=== PATIENT | female | born 1930 | race Caucasian/White ===

== ENCOUNTER → 2017-04-30 18:22 | Outpatient (CLI) | payer MEDICARE ==
[2016-04-08 10:51] VITALS: BMI 32.7
[~2017-04-30 18:22] MED LIST: ASPIRIN81 MG PO; BENTYL10 MG PO; CARAFATE1 G/10 ML PO; CIPRO500 MG PO; FUROSEMIDE20 MG PO; LASIX40 MG PO; ONDANSETRON4 MG/2 M3 IV; PROTONIX40 MG PO; TENORMIN25 MG PO
[2017-04-30 20:06] LABS: APPEARANCE CLEAR (CLEAR); COLOR YELLOW (YELLOW)
[2017-04-30 20:07] LABS: BILIRUBIN NEGATIVE (NEGATIVE); GLUCOSE NEGATIVE (NEGATIVE); KETONE NEGATIVE (NEGATIVE); LEUKOCYTE ESTERASE NEGATIVE (NEGATIVE); NITRITE NEGATIVE (NEGATIVE); PROTEIN NEGATIVE (NEGATIVE); UROBILINOGEN NORMAL (NORMAL)
== END | disposition home or self-care (01) ==
LOC: D.LABREF 18:22
PROVIDERS: Family Medicine
DX: R30.9 Painful micturition, unspecified (principal)

== ENCOUNTER 2017-07-03 21:05 | Inpatient (IN) | payer MEDICARE, OTHER ==
[~2017-07-03] VITALS: Ht 157.5 cm; Wt 80.3 kg
[2017-07-03 21:59] LABS: BASOPHILS 0.1 % (0-2); EOSINOPHILS 1.7 % (0-7); HEMATOCRIT 34.4 % (36.0-48.0); HEMOGLOBIN 11.2 g/dL (12-16); IMMATURE GRANULOCYTES 0.3 % (0-5); LYMPHOCYTES 26.7 % (15-50); MCH 30.1 pg (26.0-34.0); MCHC 32.6 g/dL (31.0-37.0); MCV 92.5 fL (80.0-100.0); MEAN PLATELET VOLUME 10.9 fL (7.4-10.4); MONOCYTES 8.8 % (2-11); NEUTROPHILS 62.4 % (40-80); RBC 3.72 10x6/uL (4.00-5.40); RDW 13.8 % (11.5-14.5); WBC 7.7 10x3/uL (4.8-10.8)
[2017-07-03 22:06] LABS: PLATELET COUNT 185 10x3/uL (130-400)
[2017-07-03 22:17] LABS: ALBUMIN 3.3 g/dL (3.4-5.0); BILIRUBIN - TOTAL 0.3 mg/dL (0.2-1.3); CALCIUM 9.6 mg/dL (8.5-10.1); CARBON DIOXIDE 30.9 mmol/L (21.0-32.0); CREATININE - SERUM 1.5 mg/dL (0.6-1.3); POTASSIUM - SERUM 4.9 mmol/L (3.5-5.1); PROTEIN - SERUM 6.7 g/dL (6.4-8.2)
[2017-07-03 22:41] LABS: INR 1.48 (0.85-1.17); PROTIME 17.8 SECONDS (11.6-15.0)
[2017-07-04 03:19] VITALS: BP 127/69; BMI 32.4
[2017-07-04 04:00] VITALS: BP 122/66
[2017-07-04 05:48] LABS: BASOPHILS 0 % (0-2); EOSINOPHILS 1.9 % (0-7); HEMOGLOBIN 10.2 g/dL (12-16); IMMATURE GRANULOCYTES 0.3 % (0-5); MCH 30.3 pg (26.0-34.0); MCHC 32.9 g/dL (31.0-37.0); MEAN PLATELET VOLUME 9.9 fL (7.4-10.4); MONOCYTES 7.3 % (2-11); NEUTROPHILS 61.5 % (40-80); RBC 3.37 10x6/uL (4.00-5.40); RDW 13.7 % (11.5-14.5); WBC 6.7 10x3/uL (4.8-10.8)
[2017-07-04 05:53] LABS: PLATELET COUNT 253 10x3/uL (130-400)
--- NOTE | 2017-07-04 07:00 | NUR ---
PT REC'D FROM [facility]. RESTING IN BED WATCHING TV. AAOX4. NO COMPLAINTS OF PAIN. PIV TO R FOREARM FREE OF REDNESS AND SWELLING. LUNG SOUNDS CLEAR AND EQUAL BILAT. REGULAR HEART RATE AND RHYTHM. BOWEL SOUNDS ACTIVE X4 QUADS. STATES SHE HAD A BM AROUND 0500 THAT WAS STREAKED WITH BRIGHT RED BLOOD. HAS NOT HAD A BM SINCE THEN. +2 EDEMA NOTED TO RLE. BED LOW, CALL LIGHT IN REACH, DENIES NEEDS. CPOC.
[2017-07-04 08:19] VITALS: BP 99/55
--- NOTE | 2017-07-04 09:24 | NUR ---
Patient Name: NYASIA HENRY Admission Status: ER Accout number: [id number] Admission Date: 07-03-2017 : 1930 Admission Diagnosis: Attending: OMAR SCHMITT Current LOS: 1 Anticipated DC Date: 07-07-2017 Planned Disposition: Home with Home Health Primary Insurance: MEDICARE A & B Discharge Planning Comments: CM MET WITH PATIENT REGARDING D/C NEEDS AND PLANS. PATIENT STATED SHE HAS A ROOMMATE SUARAVDILIA BRADFORD. PATIENT STATED SHE WILL TAKE A TAXI HOME AT DISCHARGE. PATIENT HAS 2 STEPS TO ENTER HOME AND NO STAIRS INSIDE. PATIENTS PCP IS DR. SOLOMON AND PHARMACY IS [facility]. PATIENT IS INDEPENDENT WITH HER CARE AND HAS A WALKER, CANE, AND WHEELCHAIR AT HOME. PATIENT IS CURRENT WITH [facility]. CM WILL CONTINUE TO FOLLOW PATIENT WITH D/C NEEDS AND PLANS. PCP DR. [facility]- [phone] SAURAVDILIA GUALLPANER (FRIEND) [phone] Weather Clerk: Elizabeth Delgado Is the patient Alert and Oriented? Yes 0 * How many steps to enter\exit or inside your home? 2 W/O RAIL 0 * PCP DR. SOLOMON 0 * Pharmacy [facility] 0 * Preadmission Environment Home with Family 0 * ADLs Independent 0 * Equipment Cane Walker Wheelchair 0 * List name and contact numbers for known caregivers / representatives who currently or will assist patient after discharge: SAURAV BRADFORD (FRIEND) [phone] * Community resources currently utilized None 0 * Additional services required to return to the preadmission environment? Yes 0 * Can the patient safely return to the preadmission environment? Yes 0 * Has this patient been hospitalized within the prior 30 days at any hospital? No 0 Grand Total: 0
[2017-07-04 11:01] LABS: ALBUMIN 2.8 g/dL (3.4-5.0); ANION GAP 10.6 mmol/L (8-16); BILIRUBIN - TOTAL 0.43 mg/dL (0.2-1.3); CALCIUM 8.7 mg/dL (8.5-10.1); CARBON DIOXIDE 28.8 mmol/L (21.0-32.0); CREATININE - SERUM 1.3 mg/dL (0.6-1.3); POTASSIUM - SERUM 4.4 mmol/L (3.5-5.1); PROTEIN - SERUM 6.1 g/dL (6.4-8.2)
--- NOTE | 2017-07-04 11:11 | NUR ---
NEW MEDS ADMINISTERED AT THIS TIME. PT RESTING IN BED WATCHING TV. ASSISTED TO THE BATHROOM AT THIS TIME. VOIDED SMALL AMOUNT OF CLEAR YELLOW URINE. SCD'S APPLIED AT THIS TIME. SHAHRIAR NAILS, AT BEDSIDE DISCUSSING POC. BED LOW, CALL LIGHT IN REACH, DENIES NEEDS. CPOC.
[2017-07-04 12:00] VITALS: BP 140/89
--- NOTE | 2017-07-04 15:12 | NUR ---
AWAKE AND ALERT. ORIENTED X3. NO C/O VOICED. UP TO BR VOIDED CLEAR YELLOW URINE. DENIES NEEDS. SL TO RIGHT FOREARM PATENT WITHOUT REDNESS.
[2017-07-04 16:17] VITALS: BP 90/47
--- NOTE | 2017-07-04 18:55 | NUR ---
REPORT RECIEVED, ASSUMED CARE OF PT. PT ASSISTED TO BATHROOM AND REPOSITIONED IN BED. NO OTHER COMPLAINTS AT THIS TIME, RESTING. IV FLUIDS RUNNING ORDERED, SCD'S IN PLACE. BED IN LOWEST POSITION, SIDE RAILS UP X 2, CALL LIGHT WITHIN REACH.
[2017-07-04 20:00] VITALS: BP 109/68
--- NOTE | 2017-07-04 23:50 | NUR ---
PT COMPLAINS OF SWELLING, BURNING AND PAIN AT IV SITE. D/C'D, CATHETER INTACT, BLEED CONTROL AND BANDAGE APPLIED. RE-SITED TO R FOREARM, PT TOLERATED WITH MINIMAL DISCOMFORT, FLUIDS RUNNING ORDERED.
--- NOTE | 2017-07-05 00:44 | NUR ---
PT SLEEPING, EYES SHUT, NO SIGNS OF ACUTE DISTRESS. IV FLUIDS RUNNING ORDERED. BED IN LOWEST POSITION, SIDE RAILS UP X 2, CALL LIGHT WITHIN REACH.
[2017-07-05 05:40] LABS: BASOPHILS 0.2 % (0-2); HEMATOCRIT 28.7 % (36.0-48.0); HEMOGLOBIN 9.5 g/dL (12-16); IMMATURE GRANULOCYTES 0.2 % (0-5); LYMPHOCYTES 28.3 % (15-50); MCH 30.5 pg (26.0-34.0); MCHC 33.1 g/dL (31.0-37.0); MCV 92.3 fL (80.0-100.0); MEAN PLATELET VOLUME 9.9 fL (7.4-10.4); MONOCYTES 7.8 % (2-11); NEUTROPHILS 61.5 % (40-80); PLATELET COUNT 238 10x3/uL (130-400); RBC 3.11 10x6/uL (4.00-5.40); RDW 13.8 % (11.5-14.5); WBC 6.5 10x3/uL (4.8-10.8)
[2017-07-05 05:57] LABS: INR 1.21 (0.85-1.17); PROTIME 15.1 SECONDS (11.6-15.0)
[2017-07-05 06:01] LABS: ALBUMIN 2.5 g/dL (3.4-5.0); ANION GAP 10.6 mmol/L (8-16); BILIRUBIN - TOTAL 0.44 mg/dL (0.2-1.3); CALCIUM 8.3 mg/dL (8.5-10.1); CARBON DIOXIDE 27.5 mmol/L (21.0-32.0); CREATININE - SERUM 1.4 mg/dL (0.6-1.3); POTASSIUM - SERUM 4.1 mmol/L (3.5-5.1); PROTEIN - SERUM 5.5 g/dL (6.4-8.2)
--- NOTE | 2017-07-05 06:48 | NUR ---
PT RESTING, EYES SHUT, EASILY AROUSED. NO CHANGE FROM SHIFT ASSESSMENT, EXCEPT IV RE-SITED. NO COMPLAINTS AT THIS TIME. BED IN LOWEST POSITION, SIDE RAILS UP X 2, CALL LIGHT WITHIN REACH.
--- NOTE | 2017-07-05 07:00 | NUR ---
AWAKE AND ALERT. CONSENT FOR EGD SIGNED. BED ALARM AND SCD'S ON. IV TO RIGHT AC, CALL LIGHT IN REACH. WILL CONTINUE WITH PLAN OF CARE.
--- NOTE | 2017-07-05 09:30 | NUR ---
TAKEN FOR EGD. WILL MONITOR PT WHEN SHE RETURNS TO ROOM 2236.
[2017-07-05 09:39] VITALS: BP 113/53
[2017-07-05 10:47] VITALS: BP 112/63
--- NOTE | 2017-07-05 10:50 | NUR ---
BACK FROM GI LAB AT THIS TIME. ASSISTED TO BATHROOM AND PROVIDED WITH FRESH ICE WATER. PT ALERT AND ORIENTED AND VITAL SIGNS STABLE. WILL CONTINUE WITH PLAN OF CARE.
[2017-07-05 12:57] VITALS: BP 110/59
--- NOTE | 2017-07-05 15:46 | NUR ---
ASSISTED PT TO BEDSIDE COMMODE AT THIS TIME. ENCOURAGED PT TO INCREASE INTAKE OF GOLYTELY.
[2017-07-05 16:30] VITALS: BP 128/67
[2017-07-05 17:57] LABS: APPEARANCE HAZY (CLEAR); BACTERIA MANY /hpf (NONE SEEN); BILIRUBIN NEGATIVE (NEGATIVE); COLOR STRAW (YELLOW); EPITHELIAL CELLS 0-5 /hpf (0-5); GLUCOSE NEGATIVE (NEGATIVE); KETONE NEGATIVE (NEGATIVE); LEUKOCYTE ESTERASE 1+ (NEGATIVE); NITRITE POSITIVE (NEGATIVE); PROTEIN NEGATIVE (NEGATIVE); RED CELLS - URINE RARE /hpf (0-5); UROBILINOGEN NORMAL (NORMAL)
[2017-07-05 20:00] VITALS: BP 141/60
--- NOTE | 2017-07-05 21:00 | NUR ---
ANSWERED PATIENT'S CALL LIGHT, SHE IS SITTING ON THE BEDSIDE COMMODE. SHE STATED SHE IS FINISHED ON THE BEDSIDE COMMODE. ASSISTED HER BACK TO BED. HOB 40 DEGREES. CALL LIGHT, AND PHONE IN REACH. PATIENT DENIES FURTHER NEEDS AT THIS TIME. BED IN LOWEST POSITION. BED RAILS UP X'S 3. PATIENT IS ON ROOM AIR. NO SIGNS OF DISTRESS.
[2017-07-06] VITALS (16 sets, daily range): BP systolic 97–196; BP diastolic 49–93
[2017-07-06 05:41] LABS: BASOPHILS 0.1 % (0-2); EOSINOPHILS 2.2 % (0-7); HEMATOCRIT 26.6 % (36.0-48.0); HEMOGLOBIN 8.7 g/dL (12-16); IMMATURE GRANULOCYTES 0.3 % (0-5); LYMPHOCYTES 19.6 % (15-50); MCH 30.2 pg (26.0-34.0); MCHC 32.7 g/dL (31.0-37.0); MCV 92.4 fL (80.0-100.0); MEAN PLATELET VOLUME 9.9 fL (7.4-10.4); MONOCYTES 8.3 % (2-11); NEUTROPHILS 69.5 % (40-80); PLATELET COUNT 222 10x3/uL (130-400); RBC 2.88 10x6/uL (4.00-5.40); RDW 13.6 % (11.5-14.5); WBC 6.9 10x3/uL (4.8-10.8)
[2017-07-06 06:05] LABS: INR 1.17 (0.85-1.17); PROTIME 14.8 SECONDS (11.6-15.0)
[2017-07-06 06:10] LABS: ALBUMIN 2.3 g/dL (3.4-5.0); ANION GAP 10.7 mmol/L (8-16); BILIRUBIN - TOTAL 0.29 mg/dL (0.2-1.3); CARBON DIOXIDE 26.9 mmol/L (21.0-32.0); CREATININE - SERUM 1.1 mg/dL (0.6-1.3); POTASSIUM - SERUM 3.6 mmol/L (3.5-5.1); PROTEIN - SERUM 5.1 g/dL (6.4-8.2)
--- NOTE | 2017-07-06 07:37 | NUR ---
PATIENT IV RESTARTED IN LEFT ARM DUE TO IV ALARMING. RIGHT IV LEFT IN ARM. FLUSHES WITH NO PROBLEMS. PATIENT TOLERATED WITH SMALL AMOUNT OF PAIN. CALL LIGHT WITHIN REACH.
--- NOTE | 2017-07-06 15:45 | NUR ---
PATIENT TO GET COLONOSCOPY.
--- NOTE | 2017-07-06 17:26 | NUR ---
1730 REPORT TO NILAM COBB R.N.
--- NOTE | 2017-07-06 17:27 | NUR ---
REPORT TO ZENAIDA PATIENT TO ICU FOR DIVERTICULAR BLEED. BELONGINGS BROUGHT TO RO0M 2304 BY MED STAFF. HAS GLASSES ON AND DENTURES OUT.
--- NOTE | 2017-07-06 17:30 | NUR ---
PT ARRIVED BY BED FROM GI LAB. PLACED ON ICU MONITORS. PT SR RATE 88. BP 130/62. RESP 14. O2 SAT 98% ON 2LNC. PT LYING ON BLOODY PADS. BRIGHT RED BLOOD NOTED WITH CLOTS. PT CLEANED AND PLACED ON CLEAN PADS. NO ACUTE BLEEDING NOTED WHEN PT TURNED TO CLEAN. PT ALERT AND ORIENTED. CALM AND COOPERATIVE. LEFT AC PIV WITH NS AT KVO. RIGHT AC PIV SL AT THIS TIME.
--- NOTE | 2017-07-06 17:50 | NUR ---
LAB AT BEDSIDE. 20G PIV STARTED TO LEFT AC X1 STICK. BLOOD DRAWN FOR H&H AND NEW TYPE AND CROSS. PT DID NOT HAVE A BLOOD BAND ON.
--- NOTE | 2017-07-06 17:58 | NUR ---
SPOKE WITH SON ON PHONE AND INFORMED HIM OF MOVE TO ICU.
[2017-07-06 18:01] LABS: HEMATOCRIT 23.9 % (36.0-48.0); HEMOGLOBIN 7.6 g/dL (12-16)
--- NOTE | 2017-07-06 18:25 | NUR ---
TO [facility] VIA BED FOR BLEEDING SCAN
--- NOTE | 2017-07-06 19:00 | NUR ---
REPORT RECIEVED, PT HAVING BLOOD SCAN DONE ATT, WILL AWAIT THEIR ARRIVAL BACK TO UNIT.
--- NOTE | 2017-07-06 19:46 | NUR ---
PT ARRIVED BACK TO UNIT, SHIFT ASSESSMENT COMPLETE, PLEASE SEEF LOW SHEETS FOR DETAILS. VSS, BED LOW AND LOCKED, CALL LIGHT IN REACH. PHONE IN REACH. DENIES PAIN ATT THOUGH STATES THAT SHE NEEDS A BED CHANGE, WILL PROVIDE THIS AND CPOC.
--- NOTE | 2017-07-06 19:55 | NUR ---
UNIT ONE OF TWO OF PRBC STARTED.
--- NOTE | 2017-07-06 20:22 | NUR ---
CLEANED UP SMALL BLOODY STOOL AND LARGE AMOUNT OF URINE. PT STATED SHE DID NOT HAVE A CHOICE IN GOING. VSS, BLOOD INFUSING, CALL LIGHT IN REACH. WILL CPOC.
--- NOTE | 2017-07-06 20:43 | NUR ---
PAGED AND SPOKE TO DR WALTON. GAVE UPDATE ON PT AND GAVE RESULTS OF BLOOD SCAN. MENTIONED PT WAS HAVING BP TAKEN ON LEG AND HIGH, CHANGED TO ARM AND MUCH BETTER, 127/74. PT STATED SHE TAKES ATENALOL 25MG AT HOME, MOENTIONED THIS TO DR AWLTON AND SHE DOES NOT WANT IT RESTARTED TO JUST MONITOR BP AND REPORT IF IT GETS BAD.
--- NOTE | 2017-07-06 20:45 | NUR ---
DR WALTON ALSO GAVE ORDERS FOR CLEAR LIQUID DIET FOR PT.
--- NOTE | 2017-07-06 21:00 | NUR ---
BED LOW AND LOCKED, VSS, CALL LIGHT IN REACH. BLOOD INFUSING, TOLERATING WELL. PROVIDED APPLE JUICE AND CHICKEN BROTH. DENIES PAIN/NEEDS ATT. WILL CPOC.
--- NOTE | 2017-07-06 22:15 | NUR ---
UNIT 1 OF 2 OF PRBC COMPLETE.
--- NOTE | 2017-07-06 22:20 | NUR ---
UNIT 2 OF 2 OF PRBC STARTED. VSS, WILL MONITOR.
--- NOTE | 2017-07-06 22:55 | NUR ---
REASSESSMENT COMPLETE, PLEASE SEE FLOW SHEETS FOR DETAILS. ORAL CARE AND TURNING PROVIDED. VSS, BED LOW AND LOCKED, CALL LIGHT IN REACH. WILL CPOC.
--- NOTE | 2017-07-06 22:56 | NUR ---
REASSESSMENT COMPLETE, PT ATTEMPTED TO USE BEDPAN AND ONLY PASSED GAS PER STATEMENT FROM PT. VSS, RECIEVING PRBC ATT, VSS, BED LOW AND LOCKED, CALL LIGHT IN REACH. WILL CPOC.
[2017-07-07] VITALS (24 sets, daily range): BP systolic 107–158; BP diastolic 65–100; Ht 157.5 cm; Wt 80.3 kg
--- NOTE | 2017-07-07 00:45 | NUR ---
UNIT 2 OF 2 OF PRBC COMPLETE.
--- NOTE | 2017-07-07 01:00 | NUR ---
PARTIAL LINEN CHANGE PROVIDED, INCONTINENCE OF URINE. APPLIED BARRIER CREAM TO LEATHA AREA. TOLERATED WELL. VSS, BED LOW AND LOCKED, CALL LIGHT IN REACH. WILL CPOC.
[2017-07-07 01:36] LABS: HEMATOCRIT 28.2 % (36.0-48.0)
[2017-07-07 01:37] LABS: HEMOGLOBIN 9.4 g/dL (12-16)
--- NOTE | 2017-07-07 03:00 | NUR ---
REASSESSMENT COMPLETE, PLEASE SEE FLOW SHEETS FOR DETAILS. PROVIDED BED MONTES UPON REQUEST, 200ML CONCENTRATED URINE OUT. VSS, BED LOW AND LOCKED, CALL LIGHT IN REACH. WILL CPOC.
[2017-07-07 04:42] LABS: BASOPHILS 0.2 % (0-2); EOSINOPHILS 1.4 % (0-7); HEMATOCRIT 26.8 % (36.0-48.0); HEMOGLOBIN 8.9 g/dL (12-16); IMMATURE GRANULOCYTES 0.3 % (0-5); LYMPHOCYTES 19.7 % (15-50); MCH 29.2 pg (26.0-34.0); MCHC 33.2 g/dL (31.0-37.0); MEAN PLATELET VOLUME 10.8 fL (7.4-10.4); MONOCYTES 7.8 % (2-11); NEUTROPHILS 70.6 % (40-80); RBC 3.05 10x6/uL (4.00-5.40); RDW 15.7 % (11.5-14.5); WBC 6.6 10x3/uL (4.8-10.8)
[2017-07-07 04:43] LABS: MCV 87.9 fL (80.0-100.0); PLATELET COUNT 165 10x3/uL (130-400)
--- NOTE | 2017-07-07 05:00 | NUR ---
RESTING, VSS, BED LOW AND LOCKED, CALL LIGHT IN REACH. WILL CPOC.
[2017-07-07 05:03] LABS: ALBUMIN 2.1 g/dL (3.4-5.0); BILIRUBIN - TOTAL 1.04 mg/dL (0.2-1.3); CALCIUM 8.1 mg/dL (8.5-10.1); CARBON DIOXIDE 24.1 mmol/L (21.0-32.0); CREATININE - SERUM 0.9 mg/dL (0.6-1.3); PROTEIN - SERUM 4.5 g/dL (6.4-8.2)
[2017-07-07 05:05] LABS: ANION GAP 10.2 mmol/L (8-16); POTASSIUM - SERUM 4.3 mmol/L (3.5-5.1)
[2017-07-07 10:54] LABS: HEMATOCRIT 32.4 % (36.0-48.0); HEMOGLOBIN 10.9 g/dL (12-16)
[2017-07-07 17:20] LABS: HEMATOCRIT 30.6 % (36.0-48.0); HEMOGLOBIN 10.5 g/dL (12-16)
--- NOTE | 2017-07-07 19:00 | NUR ---
REPORT RECIEVED, SHIFT ASSESSMENT COMPLETE, PLEASE SEE FLOW SHEETS FOR DETAILS. C/O PAIN IN LEFT KNEE 02/05 REFUSES PAIN MEDS ATT IF AVAILABLE. DENIES ANY OTHER NEEDS ATT. VSS, BED LOW AND LOCKED, CALL LIGHT IN REACH. WILL CPOC.
[2017-07-07 19:13] LABS: HEMATOCRIT 31.8 % (36.0-48.0); HEMOGLOBIN 10.5 g/dL (12-16)
--- NOTE | 2017-07-07 20:42 | NUR ---
RESTING, DENIES PAIN/NEEDS ATT. BED LOW AND LOCKED, CALL LIGHT IN REACH. VSS, WILL CPOC.
--- NOTE | 2017-07-07 21:03 | NUR ---
ASKED FOR BEDPAN, THIS WAS PROVIDED
--- NOTE | 2017-07-07 21:17 | NUR ---
400 ML URINE MIXED WITH DARK RED BLOODY STOOL OUT. CHANGED WHITE PAD UNDER PT, APPLIED BARRIER CREAM TO LEATHA AREA AND UPON REQUEST TO [employer]Q BELLY FOLD THAT HAS SORE ON IT.
--- NOTE | 2017-07-07 22:54 | NUR ---
REASSESSMENT COMPLETE, PLEASE SEE FLOW SHEETS FOR DETAILS. BEDPAN PROVIDED AND 400 YELLOW URINE OUT. BED LOW AND LOCKED, CALL LIGHT IN REACH. DENIES PAIN/NEEDS ATT, VSS, WILL CPOC.
[2017-07-08] VITALS (21 sets, daily range): BP systolic 132–162; BP diastolic 70–107
--- NOTE | 2017-07-08 00:32 | NUR ---
USED BED MONTES, 200ML URINE OUT
--- NOTE | 2017-07-08 01:00 | NUR ---
RESTING, VSS, BED LOW AND LOCKED, CALL LIGHT IN REACH. WILL CPOC.
--- NOTE | 2017-07-08 02:56 | NUR ---
REASSESSMENT COMPLETE, PLEASE SEE FLOW SHEETS FOR DETAILS. BED MONTES PROVIDED. 200 YELLOW URINE OUT. VSS, BED LOW AND LOCKED. DENIES PAIN/NEEDS ATT. WILL CPOC.
[2017-07-08 03:35] LABS: BASOPHILS 0.1 % (0-2); EOSINOPHILS 1.3 % (0-7); HEMATOCRIT 29.9 % (36.0-48.0); IMMATURE GRANULOCYTES 0.2 % (0-5); LYMPHOCYTES 13.9 % (15-50); MCH 29.1 pg (26.0-34.0); MCHC 33.4 g/dL (31.0-37.0); MCV 86.9 fL (80.0-100.0); MONOCYTES 7.4 % (2-11); NEUTROPHILS 77.1 % (40-80); RBC 3.44 10x6/uL (4.00-5.40); RDW 16.5 % (11.5-14.5)
[2017-07-08 03:42] LABS: PLATELET COUNT 214 10x3/uL (130-400); WBC 8.3 10x3/uL (4.8-10.8)
[2017-07-08 03:57] LABS: ALBUMIN 2.2 g/dL (3.4-5.0); ANION GAP 9.3 mmol/L (8-16); BILIRUBIN - TOTAL 0.52 mg/dL (0.2-1.3); CARBON DIOXIDE 24.1 mmol/L (21.0-32.0); POTASSIUM - SERUM 3.4 mmol/L (3.5-5.1); PROTEIN - SERUM 4.9 g/dL (6.4-8.2)
--- NOTE | 2017-07-08 05:10 | NUR ---
C/O CHRONIC ARTHRITIS PAIN IN LLE. LEGS ELEVATED AND HEAT PACK ON KNEE. DENIES ANY OTHER NEEDS ATT. VSS, BED LOW AND LOCKED, CALL LIGHT IN REACH. WILL CPOC.
[2017-07-08 10:47] LABS: HEMATOCRIT 30.8 % (36.0-48.0); HEMOGLOBIN 10.5 g/dL (12-16)
[2017-07-08 13:04] LABS: HEMATOCRIT 32.6 % (36.0-48.0); HEMOGLOBIN 10.9 g/dL (12-16)
--- NOTE | 2017-07-08 19:00 | NUR ---
REPORT RECIEVED, SHIFT ASSESSMENT COMPLETE, PLEASE SEE FLOW SHEETS FOR DETAILS. DENIES PAIN/NEEDS ATT. PAGED AND SPOKE WITH DR WALTON, SHE WOULD BE THROUGH UNIT SOON BUT STATED PT COULD BE TRANSFERED AND THAT SHE COULD BE PUT ON FULL LIQUID DIET. VSS ATT, BED LOW AND LOCKED, CALL LIGHT IN REACH. WILL CPOC.
--- NOTE | 2017-07-08 20:58 | NUR ---
USED BEDPAN, VSS, BED LOW AND LOCKED, CALL LIGHT IN REACH. URINE OUT ONLY. WILL CPOC.
--- NOTE | 2017-07-08 23:00 | NUR ---
RESTING. C/O PAIN IN LEFT FOOT, 01/05 BUT BEARABLE. VSS, BED LOW AND LOCKED, CALL LIGHT IN REACH. WILL CPOC.
--- NOTE | 2017-07-09 00:32 | NUR ---
IV INFILTRATED, RESITED TO RIGHT UPPER ARM, ON THIRD TRY. DATED AND INITIALED IV SITE. TOELRATED WELL. VSS, BED LOW AND LOCKED, CALL LIGHT IN REACH. WILL CPOC.
[2017-07-09 00:52] LABS: HEMATOCRIT 30.6 % (36.0-48.0); HEMOGLOBIN 10.4 g/dL (12-16)
--- NOTE | 2017-07-09 00:57 | NUR ---
RESTING, NO S&S OF ACUTE DISTRESS NOTED. VSS, BED LOW AND LOCKED, CALL LIGHT IN REACH. WILL CPOC.
[2017-07-09 03:00] VITALS: BP 149/80
--- NOTE | 2017-07-09 03:05 | NUR ---
RESTING, VSS, NO S&S OF ACUTE DISTRESS NOTED. BED LOW AND LOCKED, CALL LIGHT IN REACH. WILL CPOC.
[2017-07-09 04:47] LABS: BASOPHILS 0.1 % (0-2); EOSINOPHILS 0.8 % (0-7); HEMATOCRIT 29.6 % (36.0-48.0); HEMOGLOBIN 9.9 g/dL (12-16); IMMATURE GRANULOCYTES 0.2 % (0-5); LYMPHOCYTES 11.6 % (15-50); MCH 29.3 pg (26.0-34.0); MCHC 33.4 g/dL (31.0-37.0); MCV 87.6 fL (80.0-100.0); MEAN PLATELET VOLUME 9.9 fL (7.4-10.4); MONOCYTES 10.3 % (2-11); PLATELET COUNT 217 10x3/uL (130-400); RBC 3.38 10x6/uL (4.00-5.40); RDW 15.6 % (11.5-14.5); WBC 8.4 10x3/uL (4.8-10.8)
--- NOTE | 2017-07-09 05:00 | NUR ---
RESTING, VSS, BED LOW AND LOCKED, CALL LIGHT IN REACH. WILL CPOC.
[2017-07-09 05:11] LABS: ALBUMIN 2.2 g/dL (3.4-5.0); ANION GAP 9.6 mmol/L (8-16); BILIRUBIN - TOTAL 0.62 mg/dL (0.2-1.3); CALCIUM 8.3 mg/dL (8.5-10.1); CARBON DIOXIDE 24.9 mmol/L (21.0-32.0); CREATININE - SERUM 0.9 mg/dL (0.6-1.3); POTASSIUM - SERUM 3.5 mmol/L (3.5-5.1); PROTEIN - SERUM 4.9 g/dL (6.4-8.2)
[2017-07-09 07:00] VITALS: BP 152/89
--- NOTE | 2017-07-09 07:30 | NUR ---
PT AWAKE ALERT AND ORIENTED. ABLE TO OBEY COMMANDS AND VERBALIZE NEEDS. COMPLAINS OF PAIN IN FEET AT THIS TIME AND STATES DR WALTON WILL ADDRESS THIS TODAY. COMPLETE SHIFT ASSESSMENT DOCUMENTED PER FLOWSHEET. PT PUT ON BEDPAN PER REQUEST. VITAL SIGNS STABLE. WAITING FOR BED TO TRANSFER TO FLOOR TODAY.
--- NOTE | 2017-07-09 09:00 | NUR ---
PT UP IN CHAIR FOR BREAKFAST. TWO PERSON ASSIST TO CHAIR, USED WALKER TO ASSIST WELL. PT SAT UP AND ATE BREAKFAST INDEPENDENTLY. WILL CONTINUE TO MONITOR
--- NOTE | 2017-07-09 09:37 | NUR ---
PT UP WITH PHYSICAL THERAPY TO BEDSIDE COMMODE WITH GAIT BELT AND MAXIMAL ASSISTANCE. LOOSE, BLOODY STOOL NOTED. PT BACK TO CHAIR WITH PHYSICAL THERAPY AND RN. CHAIR LOCKED AND CALL LIGHT WITHIN REACH.
--- NOTE | 2017-07-09 09:38 | NUR ---
NUTRITION F/U CHART REVIEWED, PT VISIT. FULL LIQUID DIET, PT REQUESTS [place]ERRY ENSURE WITH MEALS. RD FOLLOWING
[2017-07-09 11:00] VITALS: BP 148/83
--- NOTE | 2017-07-09 11:30 | NUR ---
PT ASSISTED TO BEDSIDE COMMODE. BACK TO CHAIR. SITTING UP EATING LUNCH INDEPENDENTLY. VITAL SIGNS STABLE
--- NOTE | 2017-07-09 13:30 | NUR ---
PT REMAINS UP IN CHAIR AND DENIES NEEDS AT THIS TIME. VITAL SIGNS REMAIN STABLE. WAITING FOR TRANSFER TO FLOOR
[2017-07-09 13:36] LABS: HEMATOCRIT 30.9 % (36.0-48.0); HEMOGLOBIN 10.4 g/dL (12-16)
[2017-07-09 15:00] VITALS: BP 120/68
--- NOTE | 2017-07-09 16:00 | NUR ---
PT WAS ON BEDSIDE COMMODE. BLOODY STOOL NOTED. ASSISTED BACK TO BED WITH PHYSICAL THERAPY AND POSITIONED ON SIDE. MAXIMAL ASSISTANCE NEEDED UPON STANDING AND WITH AMBULATION. NO FURTHER CHANGES AT THIS TIME. VITAL SIGNS STABLE
--- NOTE | 2017-07-09 17:23 | NUR ---
PT ASLEEP AT THIS TIME. WILL ALLOW TO REST. VITAL SIGNS STABLE. WAITING FOR TRANSFER. FAMILY CALLED AND UPDATE GIVEN.
--- NOTE | 2017-07-09 18:25 | NUR ---
REPORT CALLED TO DANIKA ORTEGA. STATES ROOM IS NOT YET CLEAN BUT ONCE THEY ARE FINISHED PT IS TO TRANSFER TO 2226. GIVEN SANDWICH FOR DINNER. SITTING UP EATING INDEPENDENTLY. VITAL SIGNS STABLE. WILL TRANSFER WHEN ROOM COMPLETE.
[2017-07-09 20:00] VITALS: BP 106/60
[2017-07-09 23:44] VITALS: BP 131/77
--- NOTE | 2017-07-10 00:01 | NUR ---
PATIENT ON THE BEDPAN.
--- NOTE | 2017-07-10 00:14 | NUR ---
ASSISTED PATIENT OFF OF THE BEDPAN. CHANGED HER LINENS. TURNED HER TO HER RIGHT SIDE POSITIONED WITH A PILLOW. PATIENT DENIES FURTHER NEEDS AT THIS TIME. BED IN LOWEST POSITION, CALL LIGHT IN REACH. BED RIALS UP X'S 2.
[2017-07-10 00:54] LABS: APPEARANCE HAZY (CLEAR); BILIRUBIN NEGATIVE (NEGATIVE); COLOR YELLOW (YELLOW); GLUCOSE NEGATIVE (NEGATIVE); KETONE NEGATIVE (NEGATIVE); LEUKOCYTE ESTERASE 2+ (NEGATIVE); NITRITE POSITIVE (NEGATIVE); PROTEIN TRACE mg/dL (NEGATIVE); UROBILINOGEN NORMAL (NORMAL)
[2017-07-10 01:01] LABS: BACTERIA MANY /hpf (NONE SEEN); EPITHELIAL CELLS 0-5 /hpf (0-5); RED CELLS - URINE 0-5 /hpf (0-5)
[2017-07-10 04:00] VITALS: BP 127/76
[2017-07-10 06:04] LABS: BASOPHILS 0 % (0-2); EOSINOPHILS 1.6 % (0-7); HEMATOCRIT 28.7 % (36.0-48.0); HEMOGLOBIN 9.3 g/dL (12-16); IMMATURE GRANULOCYTES 0.1 % (0-5); LYMPHOCYTES 14.9 % (15-50); MCHC 32.4 g/dL (31.0-37.0); MCV 89.4 fL (80.0-100.0); MEAN PLATELET VOLUME 9.9 fL (7.4-10.4); NEUTROPHILS 70.4 % (40-80); PLATELET COUNT 218 10x3/uL (130-400); RBC 3.21 10x6/uL (4.00-5.40); RDW 15.1 % (11.5-14.5); WBC 7.6 10x3/uL (4.8-10.8)
[2017-07-10 06:19] LABS: ANION GAP 10.3 mmol/L (8-16); CALCIUM 8.3 mg/dL (8.5-10.1); CARBON DIOXIDE 26.8 mmol/L (21.0-32.0); CREATININE - SERUM 0.9 mg/dL (0.6-1.3); POTASSIUM - SERUM 4.1 mmol/L (3.5-5.1)
--- NOTE | 2017-07-10 07:45 | NUR ---
PT AWAKE AND ALERT ORINETED X 3 LUNGS CLAER BILAT. BSA X 4 QUADS. NO DISTRESS NOTED. CALL LIGHT IN REACH SIDE RAILS UP X 2
[2017-07-10 09:33] VITALS: BP 149/81
--- NOTE | 2017-07-10 10:30 | NUR ---
PT UP IN CHAIR NO DISTRESS NOTED VOICES NEEDS CALL LIGHT IN REACH
--- NOTE | 2017-07-10 12:00 | NUR ---
UP IN CHAIR AT THIS TIME. RESPIRATIONS EVEN AND NON LABORED. DENIES NEEDS. CALL LIGHT IN REACH, DOOR REMAINS OPEN. WILL CONTINUE WITH PLAN OF CARE.
[2017-07-10 12:51] VITALS: BP 106/59
--- NOTE | 2017-07-10 12:52 | NUR ---
NUTRITION F/U CHART REVIEWED. PT VISIT. TOLERATING CURRENT DIET, ENSURE. WILL HONOR FOOD PREFERENCES, MONITOR PO INTAKE. RD FOLLOWING
[2017-07-10 16:05] LABS: HEMATOCRIT 30.3 % (36.0-48.0); HEMOGLOBIN 9.8 g/dL (12-16)
[2017-07-10 16:49] VITALS: BP 119/71
[2017-07-10 20:00] VITALS: BP 111/64
[2017-07-11] VITALS: BP 109/60
[2017-07-11 04:00] VITALS: BP 126/65
[2017-07-11 05:18] LABS: BASOPHILS 0.1 % (0-2); EOSINOPHILS 2.5 % (0-7); HEMATOCRIT 28.6 % (36.0-48.0); HEMOGLOBIN 9.3 g/dL (12-16); IMMATURE GRANULOCYTES 0.1 % (0-5); LYMPHOCYTES 17.6 % (15-50); MCH 29.2 pg (26.0-34.0); MCHC 32.5 g/dL (31.0-37.0); MCV 89.7 fL (80.0-100.0); MEAN PLATELET VOLUME 9.9 fL (7.4-10.4); MONOCYTES 9.1 % (2-11); NEUTROPHILS 70.6 % (40-80); PLATELET COUNT 248 10x3/uL (130-400); RBC 3.19 10x6/uL (4.00-5.40); RDW 15.2 % (11.5-14.5); WBC 7.6 10x3/uL (4.8-10.8)
[2017-07-11 05:47] LABS: ALBUMIN 2.1 g/dL (3.4-5.0); ANION GAP 8.4 mmol/L (8-16); BILIRUBIN - TOTAL 0.3 mg/dL (0.2-1.3); CALCIUM 8.8 mg/dL (8.5-10.1); CARBON DIOXIDE 25.7 mmol/L (21.0-32.0); CREATININE - SERUM 0.9 mg/dL (0.6-1.3); POTASSIUM - SERUM 4.1 mmol/L (3.5-5.1)
--- NOTE | 2017-07-11 07:15 | NUR ---
REPORT RECEIVED FROM REGIONAL DIRECTOR NURSE. CALL LIGHT IN REACH.
[2017-07-11 08:38] VITALS: BP 134/86
--- NOTE | 2017-07-11 09:56 | NUR ---
ASSESSMENT COMPLETED. AM MEDS ADMINISTERED. SCD TO RLE. CALL LIGHT IN REACH. WILL CONTINUE WITH PLAN OF CARE.
--- NOTE | 2017-07-11 12:20 | NUR ---
PT SITTING UP IN CHAIR AT THIS TIME EATING LUNCH. NO COMPLAINTS OF PAIN OR DISCOMFORT. CALL LIGHT WITHIN REACH. WILL CONTINUE TO MONITOR.
[2017-07-11 12:47] VITALS: BP 93/62
--- NOTE | 2017-07-11 15:20 | NUR ---
Rehab Prescreening Consult recieved and the chart has been reviewed. She is a good IRF candidate, but has not ambulated since coming out of ICU. Rehab will follow her progress with PT to determine whether she can participate in 3 hrs of therapy daily 5 days a week. Nicole Bain RN Clinical Liaison, Rehab
[2017-07-11 16:04] LABS: HEMATOCRIT 30.4 % (36.0-48.0); HEMOGLOBIN 9.9 g/dL (12-16)
[2017-07-11 16:24] VITALS: BP 122/70
[2017-07-11 20:00] VITALS: BP 126/64
--- NOTE | 2017-07-11 23:10 | NUR ---
REC'D LYING IN BED. ALERT AND ORIENTED X4. DENIED PAIN AT THIS TIME. DENIED FURTHER NEEDS AT THIS TIME. INSTRUCTED TO CALL IF NEEDED ANYTHING VERBALIZED UNDERSTANDING. WILL CONT TO MONITOR. NO DISTRESS NOTED. WILL ADMIN PM/AM MEDS PRESCRIBED. BED LOW, LOCKED, CALL LIGHT IN REACH.
[2017-07-12] VITALS: BP 126/61
--- NOTE | 2017-07-12 03:57 | NUR ---
EYES CLOSED RESPIRATIONS WITH EASE AND UNLABORED. SR UP X2 CALL LIGHT WITHIN REACH.
--- NOTE | 2017-07-12 03:58 | NUR ---
EYES CLOSED RESPIRATIONS WITH EASE AND UNLABORED. SR UP X2 CALL LIGHT WITHIN REACH.
[2017-07-12 04:00] VITALS: BP 156/85
[2017-07-12 05:04] LABS: BASOPHILS 0.1 % (0-2); EOSINOPHILS 2.6 % (0-7); HEMOGLOBIN 9.1 g/dL (12-16); IMMATURE GRANULOCYTES 0.3 % (0-5); LYMPHOCYTES 19.9 % (15-50); MCH 29.3 pg (26.0-34.0); MCHC 32.5 g/dL (31.0-37.0); MEAN PLATELET VOLUME 9.7 fL (7.4-10.4); MONOCYTES 7.1 % (2-11); PLATELET COUNT 271 10x3/uL (130-400); RBC 3.11 10x6/uL (4.00-5.40); WBC 7.2 10x3/uL (4.8-10.8)
[2017-07-12 05:19] LABS: ALBUMIN 2.1 g/dL (3.4-5.0); ANION GAP 8.4 mmol/L (8-16); BILIRUBIN - TOTAL 0.2 mg/dL (0.2-1.3); CALCIUM 8.4 mg/dL (8.5-10.1); CARBON DIOXIDE 24.9 mmol/L (21.0-32.0); POTASSIUM - SERUM 4.3 mmol/L (3.5-5.1)
--- NOTE | 2017-07-12 07:23 | NUR ---
PATIENT IS RESTING QUIETLY IN THE BED. PATIENT IS AWAKE, ALERT, AND ORIENTED X4. PATIENT DENIES ANY NEEDS AT PRESENT TIME. CALL LIGHT IN PATIENT'S REACH. WILL MONITOR PATIENT.
[2017-07-12 08:31] VITALS: BP 154/48
--- NOTE | 2017-07-12 09:50 | NUR ---
PATIENT IS SITTING UP IN HER CHAIR. PATIENT VISITING WITH A FRIEND. SCHEDULED MEDICATIONS GIVEN TO PATIENT. PATIENT DENIES ANY NEEDS AT PRESENT TIME. CALL LIGHT IN PATIENT'S REACH. WILL MONITOR PATIENT.
[2017-07-12] MEDS ORDERED: ACETAMINOPHEN325 MG PO (11:06)
[2017-07-12] MEDS ORDERED: COLACE100 MG PO (11:06)
[2017-07-12] MEDS ORDERED: PHENAZOPYRIDIN100 MG PO (11:07)
[2017-07-12 12:40] VITALS: BP 120/75
--- NOTE | 2017-07-12 12:52 | NUR ---
PATIENT WILL BE TRANSFERRING DOWNSTAIRS TO REHAB. REPORT CALLED TO JAYY GUZMAN RN.
--- NOTE | 2017-07-12 14:11 | NUR ---
PATIENT TRANSFERRED VIA WHEELCHAIR TO REHAB FLOOR.
== END 2017-07-12 15:16 | DRG 378 ==
LOC: D.ER 21:05 → OBSVTIME 23:14 → D.MS 23:14 → D.ICU 07-06 14:48 → D.MS 07-06 14:48 → D.ICU 07-06 17:30 → D.MS 07-09 19:00
PROVIDERS: Emergency Medicine; Family Medicine Adult Medicine; Internal Medicine Gastroenterology; ADMIT Emergency Medicine
PROC: 0DJ08ZZ Inspection of Upper Intestinal Tract, Via Natural or Artificial Opening Endoscopic (ICD-10-PCS; principal; 2017-07-06 14:30)
DX: K57.31 Diverticulosis of large intestine without perforation or abscess with bleeding (principal); N17.9 Acute kidney failure, unspecified; D62 Acute posthemorrhagic anemia; R53.1 Weakness; R53.83 Other fatigue; D69.2 Other nonthrombocytopenic purpura; K21.9 Gastro-esophageal reflux disease without esophagitis; F41.8 Other specified anxiety disorders; K44.9 Diaphragmatic hernia without obstruction or gangrene; K29.70 Gastritis, unspecified, without bleeding; K25.9 Gastric ulcer, unspecified as acute or chronic, without hemorrhage or perforation; T39.395A Adverse effect of other nonsteroidal anti-inflammatory drugs [NSAID], initial encounter; K26.7 Chronic duodenal ulcer without hemorrhage or perforation

== ENCOUNTER 2017-07-12 13:20 | Inpatient (IN) | payer MEDICARE, OTHER ==
[~2017-07-12 13:20] MED LIST changes: +ACETAMINOPHEN325 MG PO; +COLACE100 MG PO; +PHENAZOPYRIDIN100 MG PO
[2017-07-12 15:22] VITALS: BP 128/76
[2017-07-12 19:58] VITALS: BP 132/72
--- NOTE | 2017-07-12 20:10 | NUR ---
PT RESTING IN WC IN HER ROOM. SHE REQUESTED ASSIST TO LAY DOWN IN BED. TRANSFERRED WITH TOTAL ASSIST. VSS. PT DENIES ANY NEEDS AT THIS TIME. SR'S ARE UP X 3 IN BED. CALL LIGHT AND BEDSIDE TABLE ARE WITHIN EASY REACH.
--- NOTE | 2017-07-12 22:01 | NUR ---
PT ASSISTED TO THE BATHROOM WITH MAX ASSIST FOR TRANSFERS. MOD ASSIST WITH CLOTHING. SBA FOR TOILETING.
--- NOTE | 2017-07-12 23:52 | NUR ---
RESTING QUIETLY IN BED WITH EYES CLOSED.
[2017-07-13 05:18] VITALS: BP 132/72; BMI 31.9
--- NOTE | 2017-07-13 05:58 | NUR ---
PT ASSISTED TO THE BATHROOM WITH MAX ASSIST FOR TRANSFERS. VOIDED WITHOUT DIFFICULTY. NO FURTHER NEEDS VOICED.
[2017-07-13 06:08] LABS: BASOPHILS 0.1 % (0-2); EOSINOPHILS 1.9 % (0-7); HEMATOCRIT 31.5 % (36.0-48.0); HEMOGLOBIN 10.2 g/dL (12-16); IMMATURE GRANULOCYTES 0.3 % (0-5); MCH 29.2 pg (26.0-34.0); MCHC 32.4 g/dL (31.0-37.0); MCV 90.3 fL (80.0-100.0); MEAN PLATELET VOLUME 9.9 fL (7.4-10.4); NEUTROPHILS 70.7 % (40-80); PLATELET COUNT 312 10x3/uL (130-400); RBC 3.49 10x6/uL (4.00-5.40); RDW 15.1 % (11.5-14.5); WBC 7.5 10x3/uL (4.8-10.8)
[2017-07-13 07:19] LABS: ANION GAP 12.1 mmol/L (8-16); CALCIUM 9.1 mg/dL (8.5-10.1); CREATININE - SERUM 1.1 mg/dL (0.6-1.3); POTASSIUM - SERUM 4.1 mmol/L (3.5-5.1)
[2017-07-13 09:01] VITALS: BP 148/89
--- NOTE | 2017-07-13 09:27 | NUR ---
PT AM MEDS ADMINSITERED. PT DENEIS NEEDS AT THIS TIME. PT SITTING UP IN WC WATCHING TV. WCTM.
[2017-07-13 10:06] VITALS: BMI 31.8
--- NOTE | 2017-07-13 14:54 | NUR ---
PT RESTING, EYES CLOSED. BED LOW. CL IN REACH.
--- NOTE | 2017-07-13 19:37 | NUR ---
PT IS RESTING IN WC WATCHING TV. ALERT AND ORIENTED X 3. DENIES PAIN OR DISCOMFORT AT THIS TIME. VSS. PT ASSISTED TO THE BATHROOM WITH MAX ASSIST FOR TRANSFERS. SBA FOR TOILETING. RIGHT ARM SALINE LOCK NOTED. CALL LIGHT AND BEDSIDE TABLE ARE WITHIN EASY REACH.
--- NOTE | 2017-07-13 21:25 | NUR ---
UP IN W/C AT BEDSIDE. NO C/O AT THIS TIME.
--- NOTE | 2017-07-13 22:21 | NUR ---
PT ASSISTED TO THE BATHROOM , AND THEN TO BED WITH MAX ASSIST. NO FURTHER NEEDS VOICED.
--- NOTE | 2017-07-14 00:19 | NUR ---
PT ASSISTED TO THE BATHROOM WITH MAX ASSIST FOR TRANSFERS. SBA FOR TOILETING.
--- NOTE | 2017-07-14 03:47 | NUR ---
RESTING IN BED WITH EYES CLOSED.
[2017-07-14 06:24] LABS: HEMATOCRIT 33.7 % (36.0-48.0); HEMOGLOBIN 10.9 g/dL (12-16)
[2017-07-14 08:29] VITALS: BP 143/70
--- NOTE | 2017-07-14 09:54 | NUR ---
PT AM MEDS ADMINSTERED. PT ASSISTED TO BR. PT HAD SM BM. PT SITTING UP IN WC AT THIS TIME. TM.
--- NOTE | 2017-07-14 15:52 | NUR ---
PT ASSISTED BACK INTO BED. PT READING AND DENIES FURHTER NEEDS AT THIS TIME. BED LOW. CL IN REACH.
--- NOTE | 2017-07-14 19:00 | NUR ---
UP IN W/C IN ROOM. DENIES NEEDS.
[2017-07-14 20:25] VITALS: BP 121/78
--- NOTE | 2017-07-14 20:25 | NUR ---
ASSISTED PATIENT UP TO BR AND BACK TO BED AFTER TOILETING. TOOK SCHEDULED PO MEDS. REQUESTED I CRUSH HER CARAFATE AND MIX IN APPLESAUCE. TOOK HER MEDS THEN WITHOUT DIFFICULTY. D/C'D 22 GA S/L FROM RIGHT UPPER ARM IT HAD BEEN IN PLACE 5 DAYS. PATIENT HAS NO IV ORDERS, SO NO FURTHER ACCESS IS NEEDED AT THIS TIME.
--- NOTE | 2017-07-14 21:50 | NUR ---
SET OFF BED ALARM ATTEMPTING OOB. ASSISTED PATIENT TO BR COMMODE TO URINATE, AND TO CHANGE HER PULL-UP DUE TO INCONTINENCE. REMOVED HER DUSTED WHICH WAS ALSO WET AND REPLACED HER PINK PAD FOR THE SAME REASON. RETURNED HER TO BED AND PATIENT C/O PAIN LEVEL OF 5/10 IN LEFT SHOULDER AND LEFT FOOT. GAVE HER TYLENOL 650MG PO FOR HER PAIN. RESET BED ALARM.
--- NOTE | 2017-07-15 00:15 | NUR ---
RESTING QUIETLY, EYES CLOSED.
--- NOTE | 2017-07-15 02:05 | NUR ---
RESTING IN BED, EYES CLOSED. HOB UP 20 DEGREES. APPEARS COMFORTABLE.
--- NOTE | 2017-07-15 05:20 | NUR ---
GAVE PATIENT CARAFATE CRUSHED IN APPLESAUCE AND ASSISTED PATIENT UP TO BR COMMODE TO URINATE, AND THEN BACK TO BED.
[2017-07-15 06:38] LABS: HEMATOCRIT 29.5 % (36.0-48.0); HEMOGLOBIN 9.6 g/dL (12-16)
--- NOTE | 2017-07-15 07:42 | NUR ---
PT RECIEVED IN BED WITH EYES OPEN. PUSHED CALL LIGHT FOR ASSIST TO BATHROOM. PT WITH URINARY INCONTINENCE NOTED. TRANSFERRED ASSIST X1 TO WHEELCHAIR AND COMMODE. NEW BRIEF GIVEN WITH MIN ASSIST PROVIDED. UP IN WHEELCHAIR AT THIS TIME WATCHING TV. NO CONCERNS NOTED. CALL LIGHT IN REACH.
[2017-07-15 09:04] VITALS: BP 122/62
--- NOTE | 2017-07-15 11:32 | NUR ---
PT IN BED WITH EYES CLOSED AND CHEST RISING. EASILY AROUSED TO VEBAL STIMULI. NO CONCERNS OR QUESTIONS NOTED AT THIS TIME. CALL LIGHT IN REACH.
--- NOTE | 2017-07-15 11:37 | NUR ---
PT UP IN WHEELCHAIR WATCHING TV. SHOWER PROVIDED AND BED LINENS CHANGED. PT TOLERATED WELL AND STATES FEELING BETTER. NO CONCERNS NOTED. CALL LIGHT IN REACH.
--- NOTE | 2017-07-15 16:22 | NUR ---
PT IN BED WITH EYES CLOSED AND CHEST RISING. EASILY AROUSED TO VERBAL STIMULI. FREQUENT TRIPS TO BATHROOM FOR URINATION. NO OTHER CONCERN NOTED. CALL LIGHT IN REACH.
--- NOTE | 2017-07-15 18:20 | NUR ---
RESTING QUIETLY IN BED. DENIES NEEDS. CALL LIGHT IN REACH
--- NOTE | 2017-07-15 19:05 | NUR ---
ASSISTED PATIENT UP TO BR FROM W/C TO COMMODE, AND THEN BACK TO BED AFTER CHANGING HER BRIEF DUE TO SMALL INCONTINENCE WHILE IN W/C.
[2017-07-15 21:50] VITALS: BP 148/76
--- NOTE | 2017-07-15 21:50 | NUR ---
ASSESSMENT AND HS MEDS COMPLETE. GAVE PATIENT SCHEDULED CARAFATE CRUSHED IN APPLESAUCE. ALSO GAVE HER TYLENOL 650 MG PO FOR PAIN LEVEL OF 6/10 IN LEFT SHOULDER, LEFT LEG AND LEFT FOOT.
--- NOTE | 2017-07-16 00:05 | NUR ---
RESTING BED, EYES CLOSED AFTER ASSIST UP TO BR WITH ACCOMPANYING BRIEF CHANGE AT 2320 HRS.
--- NOTE | 2017-07-16 01:50 | NUR ---
ASSISTED PATIENT BACK IN TO BED FROM [facility]. REHEATED HER WARM MOIST PACK AND REPOSITIONED IT TO HER LEFT SHOULDER FROM THE RIGHT.
--- NOTE | 2017-07-16 04:00 | NUR ---
ASSISTED PATIENT UP TO BR TO URINATE, AND TO CHANGE BRIEF AND SCRUB TOP DUE TO URINE INCONTINENCE. ALSO CHANGED PINK BED PAD.
[2017-07-16 05:48] LABS: BASOPHILS 0.1 % (0-2); EOSINOPHILS 2.2 % (0-7); HEMATOCRIT 29.8 % (36.0-48.0); HEMOGLOBIN 9.6 g/dL (12-16); IMMATURE GRANULOCYTES 0.3 % (0-5); LYMPHOCYTES 22.7 % (15-50); MCH 29.1 pg (26.0-34.0); MCHC 32.2 g/dL (31.0-37.0); MCV 90.3 fL (80.0-100.0); MEAN PLATELET VOLUME 9.4 fL (7.4-10.4); MONOCYTES 7.7 % (2-11); PLATELET COUNT 382 10x3/uL (130-400); RDW 15.2 % (11.5-14.5); WBC 7.4 10x3/uL (4.8-10.8)
--- NOTE | 2017-07-16 05:50 | NUR ---
ASSISTED PATIENT UP TO BR TO URINATE, AND THEN BACK TO BED. EMPLACED WARM MOIST PACK TO LEFT ANKLE AND DORSAL FOOT. DENIES FURTHER NEEDS.
[2017-07-16 06:00] LABS: ANION GAP 11.9 mmol/L (8-16); CALCIUM 8.9 mg/dL (8.5-10.1); CARBON DIOXIDE 27.9 mmol/L (21.0-32.0); CREATININE - SERUM 1.1 mg/dL (0.6-1.3); POTASSIUM - SERUM 3.8 mmol/L (3.5-5.1)
[2017-07-16 08:23] VITALS: BP 163/89
--- NOTE | 2017-07-16 09:16 | NUR ---
PT RESTING IN BED WITH EYES OPEN CALL LIGHT IN REACH NO PROBLEMS WILL MONITER
--- NOTE | 2017-07-16 12:15 | NUR ---
PT RESTING IN BED WITH EYES OPEN CALL LIGHT IN REACH WILL MONITER
--- NOTE | 2017-07-16 17:24 | NUR ---
PT RESTING IN BED WITH EYES OPEN CALL LIGHT IN REACH WILL MONITER
--- NOTE | 2017-07-16 20:30 | NUR ---
SITTING UP IN W/C AT BEDSIDE.
[2017-07-16 20:41] VITALS: BP 147/80
--- NOTE | 2017-07-16 22:50 | NUR ---
PT. IN BED WITH HOB UP FOR COMFORT WITH EYES CLOSED AND RESP. EVEN. PT. AWAKENS EASILY FOR ASSESSMENT. ASSISTED PT. TO/FROM BR TO URINATE. CHANGED BRIEF AND LEFT SOILED SCRUB PANTS OFF FOR THE NIGHT. BED LINENS CHANGED. PT. POSITIONED TO COMFORT. CALL LIGHT WITHIN REACH.
--- NOTE | 2017-07-17 01:28 | NUR ---
PT. IN BED WITH HOB UP FOR COMFORT WITH EYES CLOSED AND RESP. EVEN. CALL LIGHT WITHIN REACH.
--- NOTE | 2017-07-17 04:15 | NUR ---
PT. IN BED AND ASSISTED TO/FROM BR TO URINATE. POSITIONED TO COMFORT AND NO OTHER VOICED NEEDS. CALL LIGHT WITHIN REACH.
--- NOTE | 2017-07-17 08:00 | NUR ---
SHIFT ASSMT COMPLETED.CL IN REACH.
[2017-07-17 08:06] VITALS: BP 161/74
[2017-07-17 09:30] LABS: HEMATOCRIT 33.5 % (36.0-48.0); HEMOGLOBIN 10.7 g/dL (12-16)
--- NOTE | 2017-07-17 12:00 | NUR ---
SITTING UP FOR LUNCH.DENIES NEEDS.CL IN REACH.
--- NOTE | 2017-07-17 13:51 | NUR ---
Nutrition Follow Up: Pt is eating 89% meal avg on a diabetic gastric soft diet. +BM 07/12/17. Labs and meds reviewed. Will change diet to regular gastric soft. RD following.
--- NOTE | 2017-07-17 16:00 | NUR ---
SITTING UP IN WC.STATES SHE IS GOING TO STAY UP FOR AWHILE.CL IN REACH.
--- NOTE | 2017-07-17 18:07 | RHP ---
PATIENT: NYASIA HENRY MEDICAL RECORD: [id number] ACCOUNT: [id number] LOCATION:[facility]18 : 30 ADMISSION DATE: 07/12/17 REHABILITATION HISTORY AND PHYSICAL EXAMINATION POST ADMISSION PHYSICIAN EXAMINATION Post-Admission Physical Examination and History and Physical DATE OF ADMISSION: 07/12/2017 ADMITTING DIAGNOSES: Debility and acute gastrointestinal bleed. HISTORY OF PRESENT ILLNESS: The patient admitted to inpatient rehab for debility due to acute gastrointestinal bleed, presented with complaints that she began passing some bright red blood per rectum with clots associated with mild left lower quadrant pain that started the evening prior to being admitted. Her last bloody bowel movement was around 5:00 a.m. on the day of admission. She is complaining of fatigue, weakness and dizziness. She had 81 mg of aspirin daily, no NSAIDs. Last colonoscopy was over 25 years ago. She had an upper GI bleed in February 2016, been taking diclofenac. EGD showed ulcerative esophagitis, gastric ulcers and a lower duodenal ulcer with visible vessel treated with epinephrine. On admission, her H&H were 7.6 and 23.9. She received a total of 3 units of packed red blood cells. She was admitted with GI consult. On July 05, the EGD showed a small hiatal hernia, gastritis, but no gastric ulcers and duodenal mucosa showed no erythema or ulcers. On July 06, she had a colonoscopy that showed copious amounts of blood and clots present in the rectum, sigmoid and descending colon. There was no fresh blood seen in the proximal to splenic flexure, diverticulosis seen in sigmoid, descending, transverse and ascending colon. Currently, she has got no further rectal bleeding, H&H stable. Her appetite is good. Previously, she was living alone, was moderately independent with ADLs and mobility with using a rolling walker. Currently, she is moderate to max assist for ADLs and mobility due to increased fatigue, weakness and exertional shortness of breath. She wants to return back home to her prior level of functioning or better. COMORBIDITIES: Include acute blood loss anemia, nausea and vomiting, anemia, myopathy, acute kidney injury, UTI, gastroesophageal reflux disease, anxiety, depression, dizziness, fatigue, weakness and urinary incontinence. PAST MEDICAL HISTORY: Significant for palpitations, acid reflux, GI bleeding ulcers, depression and anxiety. PAST SURGICAL HISTORY: Includes appendectomy, hysterectomy and right knee surgery. ALLERGIES: CODEINE, ASPARTAME AND KEFLEX. CURRENT MEDICATIONS: Include atenolol 25 mg daily, Carafate 1 g q.6 hours, Pyridium 100 mg t.i.d. p.r.n., Colace 100 mg b.i.d., Tylenol p.r.n. discomfort and polyethylene glycol 17 grams in 8 ounces of water daily. HABITS: No alcohol or tobacco use. FAMILY HISTORY: Noncontributory. HISTORY AND PHYSICAL [id number] HENRYNYASIARANDY PAIGEE SOCIAL HISTORY: As above. The patient hopes to return back home and get back to her prior level of functioning. REVIEW OF SYSTEMS: GENERAL: Does complain of weakness. HEENT: Denies cold, cough, or congestion. CARDIOVASCULAR: Denies chest pain. PHYSICAL EXAMINATION: VITAL SIGNS: Stable, afebrile. GENERAL: This is a well-developed elderly female in no acute distress, alert upon exam. HEENT: Normocephalic and atraumatic. Mucosa moist. NECK: Supple. No lymphadenopathy. LUNGS: Clear. HEART: Regular rate and rhythm. ABDOMEN: Benign. EXTREMITIES: No clubbing, cyanosis, or edema. NEUROLOGIC: Seems intact. ASSESSMENT: This is an 86-year-old female patient admitted to rehab with debility secondary to gastrointestinal bleed. The patient has potential to make improvement. We instituted the following multidisciplinary therapies including, but not limited to physical, occupational, respiratory, speech, nutritional services, prosthetics and orthotics. Given her complex condition and risk for more complications, rehabilitation services cannot be provided at a lower level of care such as a fdc facility. PLAN: 1. Admit to [facility] rehab for intensive inpatient therapy to include the following disciplines: A. Physical therapy to improve gait, all transfer skills and bed mobility to a modified independent level. B. Occupational therapy improve activities of daily living to a modified independent level. C. Case management to assist with discharge planning and placement options. D. Nutrition to assist with nutritional needs. E. Rehabilitation nursing to assist in monitoring the patient's underlying medical conditions and to assist with any type of bowel or bladder management. 2. The patient's current medications and medical care will be continued. 3. The patient will be placed on standard fall precautions. 4. The patient's estimated length of stay is approximately 7-10 days. 5. We will watch her H&H closely and discuss this patient during care team staff meeting this week. TRANSINT:[id number] Voice Confirmation ID: [id number] DOCUMENT ID: [id number] BIENVENIDO notes whether there has been none or any medical/functional change since admission: - NO CHANGE SINCE PRESCREEN. BIENVENIDO attests patient continues to be appropriate for IRF: - CONINUES TO BE APPROPRIATE. HISTORY AND PHYSICAL [id number] NYASIA HENRY SCOTT MD at 1807 CC: [id number] DICTATION DATE: 07/12/17 1603 DIRECT CARE SPECIALIST: 07/12/17 1736 ADM IN [place] [id number] [place] [id number]
--- NOTE | 2017-07-17 19:20 | NUR ---
PT. SITTING UP IN W/C READING. NO VOICED NEEDS. ASSESSMENT COMPLETED. PT. THEN REQUESTED ASSISTANCE TO BR. PT. ASSISTED TO/FROM BR. POSITIONED IN BED FOR COMFORT. CALL LIGHT WITHIN REACH.
[2017-07-17 19:45] VITALS: BP 156/78
--- NOTE | 2017-07-17 23:10 | NUR ---
PT. IN BED WITH HOB UP FOR COMFORT WITH EYES CLOSED AND RESP. EVEN. CALL LIGHT WITHIN REACH.
--- NOTE | 2017-07-18 03:04 | NUR ---
PT. IN BED WITH HOB UP FOR COMFORT WITH EYES CLOSED AND RESP. EVEN. CALL LIGHT WITHIN REACH.
[2017-07-18 05:53] LABS: BASOPHILS 0.3 % (0-2); EOSINOPHILS 1.7 % (0-7); HEMATOCRIT 34.3 % (36.0-48.0); HEMOGLOBIN 10.9 g/dL (12-16); IMMATURE GRANULOCYTES 0.3 % (0-5); LYMPHOCYTES 19.9 % (15-50); MCHC 31.8 g/dL (31.0-37.0); MCV 91.2 fL (80.0-100.0); MEAN PLATELET VOLUME 9.6 fL (7.4-10.4); MONOCYTES 7.3 % (2-11); NEUTROPHILS 70.5 % (40-80); RBC 3.76 10x6/uL (4.00-5.40); RDW 15.3 % (11.5-14.5); WBC 7.8 10x3/uL (4.8-10.8)
[2017-07-18 06:12] LABS: PLATELET COUNT 467 10x3/uL (130-400)
[2017-07-18 06:13] LABS: ANION GAP 10.4 mmol/L (8-16); CALCIUM 9.7 mg/dL (8.5-10.1); CARBON DIOXIDE 29.8 mmol/L (21.0-32.0); CREATININE - SERUM 0.9 mg/dL (0.6-1.3); POTASSIUM - SERUM 4.2 mmol/L (3.5-5.1)
--- NOTE | 2017-07-18 08:00 | NUR ---
SHIFT ASSMT COMPLETED.DENIES NEEDS.
[2017-07-18 08:35] VITALS: BP 148/68
--- NOTE | 2017-07-18 12:00 | NUR ---
SITTING UP FOR LUNCH.DENIES NEEDS.
--- NOTE | 2017-07-18 12:57 | NUR ---
PT STATES LT KNEE HURTS NOT RT, THEREFORE NURSE SAID TO X-RAY THE LEFT KNEE.
--- NOTE | 2017-07-18 19:30 | NUR ---
PT IS SITTING IN HER WC IN HER ROOM. ALERT AND ORIENTED X 3. DENIES ACUTE PAIN OR DISCOMFORT. ASSISTED TO THE BATHROOM WITH MOD ASSIST FOR TRANSFERS. SBA FOR TOILETING. NO FURTHER NEEDS VOICED. CALL LIGHT AND BEDSIDE TABLE ARE WITHIN EASY REACH.
[2017-07-18 19:35] VITALS: BP 137/65
--- NOTE | 2017-07-18 22:11 | NUR ---
PT IS RESTING IN BED WITH EYES OPEN. NO NEEDS VOICED.
--- NOTE | 2017-07-19 00:01 | NUR ---
PT ASSISTED TO THE BATHROOM WITH MOD TO MAX ASSIST. NO FURTHER NEEDS VOICED.
--- NOTE | 2017-07-19 03:09 | NUR ---
RESTING IN BED WITH EYES CLOSED.
--- NOTE | 2017-07-19 04:16 | NUR ---
RESTING IN BED WITH EYES CLOSED AT THIS TIME. NEWS LIBRARIAN LIGHT VERY FREQUENTLY THROUGH OUT THE NIGHT. NO S/S OF DISTRESS OBSERVED. CALL LIGHT AND OVERBED TABLE IN EACH.
[2017-07-19 06:01] LABS: HEMATOCRIT 31.3 % (36.0-48.0); HEMOGLOBIN 10.1 g/dL (12-16)
--- NOTE | 2017-07-19 06:22 | NUR ---
PT RESTING IN BED WITH EYES OPEN. NO NEEDS VOICED.
--- NOTE | 2017-07-19 07:24 | NUR ---
ASSESSMENT DONE. DENIES NEEDS AT THIS TIME.
[2017-07-19 08:29] VITALS: BP 138/75
--- NOTE | 2017-07-19 17:14 | NUR ---
WITHOUT CHANGES OR DISTRESS NOTED AT THIS TIME.FAMILY AT SIDE.
[2017-07-19 19:00] VITALS: BP 134/66
--- NOTE | 2017-07-19 19:15 | NUR ---
PT UP IN BED WITH HOB UP FOR COMFORT. WATCHING TV. ALERT & ORIENTED. NO O2. NO IV. BED IN LOWEST POSITION AND CALL LIGHT WITHIN REACH.
--- NOTE | 2017-07-19 23:15 | NUR ---
PT IN BED WITH HOB UP FOR COMFORT. EYES CLOSED. CHEST RISING AND FALLING. BED IN LOWEST POSITION AND CALL LIGHT WITHIN REACH.
--- NOTE | 2017-07-20 01:29 | NUR ---
WHEN ATTEMPTINE TO TRANSFER TO W/C PT. DROPPED HERSEL INTO THE W/C INSTAD OF SLOWLY SITTING DOWN. WHEN ASK WHAT HAPPEN AND WHY SHE JUST DROPPED SHE STATED "I WAS IN A HURRY". DID THE SAME THING WHEN SITTING ON THE TOILET . EXPAINED TO HER THAT SHE NEEDED TO CONTROL HERSELF WHEN SITTING. STATED SHE WOULD.
--- NOTE | 2017-07-20 05:00 | NUR ---
PT LYING IN BED. EYES CLOSED. RESP. EVEN. BED IN LOWEST POSITION AND CALL LIGHT WITHIN REACH.
[2017-07-20 07:45] LABS: BASOPHILS 0.1 % (0-2); EOSINOPHILS 1.9 % (0-7); HEMATOCRIT 34.3 % (36.0-48.0); HEMOGLOBIN 10.9 g/dL (12-16); IMMATURE GRANULOCYTES 0.1 % (0-5); LYMPHOCYTES 24.7 % (15-50); MCH 29.1 pg (26.0-34.0); MCHC 31.8 g/dL (31.0-37.0); MCV 91.5 fL (80.0-100.0); MONOCYTES 8.1 % (2-11); NEUTROPHILS 65.1 % (40-80); PLATELET COUNT 440 10x3/uL (130-400); RBC 3.75 10x6/uL (4.00-5.40); RDW 15.1 % (11.5-14.5); WBC 6.7 10x3/uL (4.8-10.8)
[2017-07-20 07:47] LABS: ANION GAP 9.4 mmol/L (8-16); CALCIUM 9.3 mg/dL (8.5-10.1); CARBON DIOXIDE 30.1 mmol/L (21.0-32.0); CREATININE - SERUM 1.2 mg/dL (0.6-1.3); POTASSIUM - SERUM 4.5 mmol/L (3.5-5.1)
--- NOTE | 2017-07-20 08:08 | NUR ---
EATING BREAKFAST. DENIES NEEDS. CALL LIGHT IN REACH
[2017-07-20 08:09] VITALS: BP 133/71
--- NOTE | 2017-07-20 10:51 | NUR ---
SITTING IN W/C IN ROOM. DENIES PAIN OR SOB
--- NOTE | 2017-07-20 13:06 | NUR ---
MOD ASST TO TRANSFER TO TOILET IN HER ROOM.
--- NOTE | 2017-07-20 19:55 | NUR ---
PT. IN BED WITH HOB UP FOR COMFORT WITH EYES CLOSED AND RESP. EVEN. PT. AWAKENS EASILY FOR ASSESSMENT. ASSISTED PT. TO/FROM BR AND REPOSITIONED TO COMFORT. NO OTHER VOICED NEEDS AND HER CALL LIGHT IS WITHIN REACH.
[2017-07-20 20:10] VITALS: BP 100/58
--- NOTE | 2017-07-20 23:07 | NUR ---
PT. IN BED WITH HOB UP FOR COMFORT. EYES CLOSED AND RESP. DEEP AND EVEN. CALL LIGHT WITHIN REACH.
--- NOTE | 2017-07-21 03:01 | NUR ---
PT. IN BED WITH HOB UP FOR COMFORT WITH EYES CLOSED AND RESP. EVEN. CALL LIGHT WITHIN REACH.
[2017-07-21 08:00] VITALS: BP 114/69
--- NOTE | 2017-07-21 08:00 | NUR ---
UP IN WC.TAKEN TO BATHROOM.VOIDED;SM BM.RETURNED TO BEDSIDE UP IN WC FOR BREAKFAST.CL IN REACH.
--- NOTE | 2017-07-21 12:00 | NUR ---
SITTING UP IN WC EATING LUNCH.
[2017-07-21 13:52] LABS: ERYTHROCYTE SEDIMENTATION RATE 46 mm/hr (0-42)
--- NOTE | 2017-07-21 16:00 | NUR ---
RESTING QUIETLY.CL IN REACH.
--- NOTE | 2017-07-21 19:55 | NUR ---
PT. SITTING UP IN W/C. ASSISTED TO/FROM BR. POSITIONED TO COMFORT IN BED WITH HOB UP AND LE'S UP ON PILLOW. ASSESSMENT COMPLETED. NO OTHER VOICED NEEDS AT THIS TIME. CALL LIGHT WITHIN REACH.
[2017-07-21 20:05] VITALS: BP 117/74
--- NOTE | 2017-07-21 23:15 | NUR ---
PT. IN BED WITH HOB UP FOR COMFORT WITH EYES CLOSED AND RESP. DEEP AND EVEN. LE'S CONTINUE TO BE ELEVATED UP AND ON A PILLOW. CALL LIGHT WITHIN REACH.
--- NOTE | 2017-07-22 03:13 | NUR ---
PT. IN BED WITH HOB UP FOR COMFORT AND EYES CLOSED WITH RESP. DEEP AND EVEN. LE'S ELEVATED UP ON PILLOW AND HER CALL LIGHT IS WITHIN REACH.
[2017-07-22 08:00] VITALS: BP 161/72
--- NOTE | 2017-07-22 08:00 | NUR ---
SHIFT ASSMT COMPLETED.BREAKFAST GIVEN.UP OOB IN WC.CL IN REACH.
--- NOTE | 2017-07-22 12:00 | NUR ---
SITTING UP EATING LUNCH.CL IN REACH.
--- NOTE | 2017-07-22 16:00 | NUR ---
RESTING QUIETLY.CL IN REACH.
[2017-07-22 19:55] VITALS: BP 96/52
--- NOTE | 2017-07-22 19:55 | NUR ---
PT. SITTING UP IN W/C. ASSESSMENT COMPLETED. NO VOICED NEEDS AT THIS TIME AND HER CALL LIGHT IS WITHIN REACH.
--- NOTE | 2017-07-22 23:37 | NUR ---
PT. IN BED WITH HOB UP FOR COMFORT AND HAS KICKED ALL HER COVERS OFF. EYES CLOSED AND RESP. EVEN. CALL LIGHT WITHIN REACH.
--- NOTE | 2017-07-23 03:08 | NUR ---
PT. IN BED WITH HOB UP FOR COMFORT WITH EYES CLOSED AND RESP. EVEN. BLE'S ELEVATED UP ON PILLOW. CALL LIGHT WITHIN REACH.
[2017-07-23 05:33] LABS: BASOPHILS 0.1 % (0-2); EOSINOPHILS 2.1 % (0-7); HEMATOCRIT 34.5 % (36.0-48.0); HEMOGLOBIN 10.9 g/dL (12-16); IMMATURE GRANULOCYTES 0.3 % (0-5); LYMPHOCYTES 26.8 % (15-50); MCH 29.1 pg (26.0-34.0); MCHC 31.6 g/dL (31.0-37.0); MCV 92.2 fL (80.0-100.0); MEAN PLATELET VOLUME 9.6 fL (7.4-10.4); MONOCYTES 6.6 % (2-11); NEUTROPHILS 64.1 % (40-80); PLATELET COUNT 418 10x3/uL (130-400); RBC 3.74 10x6/uL (4.00-5.40); RDW 15.1 % (11.5-14.5); WBC 6.8 10x3/uL (4.8-10.8)
[2017-07-23 05:53] LABS: ANION GAP 12.5 mmol/L (8-16); CALCIUM 9.8 mg/dL (8.5-10.1); CARBON DIOXIDE 27.2 mmol/L (21.0-32.0); CREATININE - SERUM 1.4 mg/dL (0.6-1.3); POTASSIUM - SERUM 4.7 mmol/L (3.5-5.1)
--- NOTE | 2017-07-23 13:16 | NUR ---
SITTING IN W/C IN ROOM. MIN ASST TO TRANSFER FROM W/C TO TOILET. REMAINS ON BLADDER TRAINING.
[2017-07-23 13:39] VITALS: BP 90/51
--- NOTE | 2017-07-23 18:25 | NUR ---
SITTING IN W/C IN ROOM FINISHING SUPPER.
[2017-07-23 19:00] VITALS: BP 109/60
--- NOTE | 2017-07-23 19:05 | NUR ---
PT IN BED WITH HOB UP FOR COMFORT. WATCHING TV. ALERT & ORIENTED. BLADDER TRAINING DURING THE DAY Q2H AND AT NIGHT Q4H. INCONTINENT AT TIMES. STANDBY ASSIST. W/C. NO O2. NO IV. BED ALARM ON. BED IN LOWEST POSITION AND CALL LIGHT WITHIN REACH.
--- NOTE | 2017-07-23 20:23 | NUR ---
ASSISTED PT TO BATHROOM. Q4H BLADDER TRAINING FOR THE NIGHT INITTIATED.
--- NOTE | 2017-07-23 21:45 | NUR ---
RESTING QUIETLY IN BED, EYES CLOSED.
--- NOTE | 2017-07-24 00:26 | NUR ---
ASSISTED PT TO BATHROOM. CONTIN. Q4H BLADDER TRAINING.
--- NOTE | 2017-07-24 01:45 | NUR ---
PT LYING IN BED. EYES CLOSED. CHEST RISING AND FALLING. BED IN LOWEST POSITION AND CALL LIGHT WITHIN REACH.
--- NOTE | 2017-07-24 04:29 | NUR ---
ASSISTED PT TO BATHROOM. CONTIN. Q4H BLADDER TRAINING.
--- NOTE | 2017-07-24 05:22 | NUR ---
PT UP IN BED WITH HOB UP FOR COMOFRT. RESTING QUIETLY. BED IN LOWEST POSITION AND CALL LIGHT WITHIN REACH.
[2017-07-24 07:57] VITALS: BP 167/88
--- NOTE | 2017-07-24 08:17 | NUR ---
EATING BREAKFAST. CALL LIGHT IN REACH
--- NOTE | 2017-07-24 12:19 | NUR ---
SITTING IN ROOM FEEDING HERSELF LUNCH. ASKES FOR THINGS DONE FOR HER THAT SHE CAN DO EASILY FOR HERSELF. IS STILL ON Q2 HOUR TOILETING SCHEDULING. SHE IS DOING WELL WHEN REMEINDED SHE CAN TOILET EVERY 2 HRS. IS CONTINENT OF B/B MOST OF TIME.
--- NOTE | 2017-07-24 18:19 | NUR ---
SITTING IN W/C IN ROOM EATING SUPPER. FEEDS HERSELF. MIN TO STAND BY ASST TO TRANSFER TO FROM BED AND THEN TO TOILET. IS CONTINENT OF B/B.
[2017-07-24 19:22] VITALS: BP 148/82
--- NOTE | 2017-07-24 19:26 | NUR ---
PT IS SITTING IN HER WC IN HER ROOM. ALERT AND ORIENTED X 3. DENIES ACUTE DISCOMFORT AT THIS TIME. VSS. NO NEEDS VOICED. SR'S ARE UP X 2 WHILE IN BED. CALL LIGHT AND BEDSIDE TABLE ARE WITHIN EASY REACH.
--- NOTE | 2017-07-24 20:05 | NUR ---
UP IN ROOM IN W/C. DENIES NEEDS. INFORMED HER SHE WILL BE GETTING A ROOMMATE SHORTLY.
--- NOTE | 2017-07-24 21:51 | NUR ---
PT ASSISTED TO BATHROOM WITH SBA. VOIDED WITHOUT DIFFICULTY. THEN ASSISTED TO BED WITH MOD ASSIST. NO FURTHER NEEDS VOICED.
--- NOTE | 2017-07-25 01:47 | NUR ---
PT ASSISTED TO THE BATHROOM WITH SBA. NO FURTHER NEEDS VOICED.
--- NOTE | 2017-07-25 05:21 | NUR ---
PT ASSISTED TO THE BATHROOM WITH SBA FOR ALL TASKS EXCEPT GETTING BACK IN BED. MOD ASSIST TO DO THAT.
[2017-07-25 06:35] LABS: BASOPHILS 0.2 % (0-2); EOSINOPHILS 2.3 % (0-7); HEMATOCRIT 32.9 % (36.0-48.0); HEMOGLOBIN 10.4 g/dL (12-16); IMMATURE GRANULOCYTES 0.2 % (0-5); LYMPHOCYTES 22.3 % (15-50); MCH 29.2 pg (26.0-34.0); MCHC 31.6 g/dL (31.0-37.0); MCV 92.4 fL (80.0-100.0); MEAN PLATELET VOLUME 9.6 fL (7.4-10.4); MONOCYTES 12.3 % (2-11); NEUTROPHILS 62.7 % (40-80); PLATELET COUNT 372 10x3/uL (130-400); RBC 3.56 10x6/uL (4.00-5.40); RDW 14.8 % (11.5-14.5)
[2017-07-25 07:05] LABS: ANION GAP 14.4 mmol/L (8-16); CALCIUM 9.1 mg/dL (8.5-10.1); CREATININE - SERUM 1.7 mg/dL (0.6-1.3); POTASSIUM - SERUM 4.4 mmol/L (3.5-5.1)
--- NOTE | 2017-07-25 08:00 | NUR ---
SHIFT ASSMT COMPLETED.DENIES NEEDS.SITTING UP FOR BREAKFAST.CL IN REACH.
[2017-07-25 08:12] VITALS: BP 130/65
--- NOTE | 2017-07-25 12:00 | NUR ---
SITTING UP FOR LUNCH.CL IN REACH.
--- NOTE | 2017-07-25 13:59 | NUR ---
RD f/u note, Pt with good to fair intake of 50-75% with some 100% average 70% X 20 meals. has carolynn boost with meals on regualr gastric soft diet. MEDS, LABS, and notes reviewed. Prabhjot Cullen, noted to have some reddened are bilateral extremiteis. no changes at this time. Plan: continue current diet, continue to provide selective menu, continue plan of care, RD to continue to follow.
--- NOTE | 2017-07-25 14:31 | NUR ---
SPOKE WITH PATIENT GRANDSON, ISAMAR AND PATIENT WOULD LIKE REFERRAL TO BE SENT TO [facility] IN [place]. HE LIVES IN PATIENT AND SHE CAN BE CLOSER TO HIM. WILL CONTINUE TO FOLLOW WITH PATIENT
--- NOTE | 2017-07-25 16:00 | NUR ---
RESTING QUIETLY.CL IN REACH.
--- NOTE | 2017-07-25 19:20 | NUR ---
SITTING UP IN W/C AT BEDSIDE. NO C/O AT THIS TIME.
[2017-07-25 20:00] VITALS: BP 101/61
--- NOTE | 2017-07-25 21:29 | NUR ---
PT RESTING IN BED WITH EYES OPEN. NO NEEDS VOICED AT THIS TIME.
--- NOTE | 2017-07-26 01:08 | NUR ---
PT ASSISTED TO THE BATHROOM. INC. CARE GIVEN.
--- NOTE | 2017-07-26 04:12 | NUR ---
PT ASSISTED TO THE BATHROOM WITH SBA.
--- NOTE | 2017-07-26 06:35 | NUR ---
PT IS RESTING IN BED WITH EYES OPEN. NO NEEDS VOICED.
--- NOTE | 2017-07-26 08:00 | NUR ---
SHIFT ASSMT COMPLETED.SITTING UP IN WC;BREAKFAST GIVEN.CL IN REACH.
[2017-07-26 10:09] VITALS: BP 149/62
--- NOTE | 2017-07-26 12:00 | NUR ---
EATING LUNCH,SITTING UP IN WC.
--- NOTE | 2017-07-26 20:00 | NUR ---
PT IS RESTING IN WC IN HER ROOM. ASSISTED TO THE BATHROOM , AND THEN TO BED. ALERT AND ORIENTED X 3. VSS. PT EXCITED TO BE DC'G TO [facility] TOMORROW. SR'S ARE UP X 3 IN BED. CALL LIGHT AND BEDSIDE TABLE ARE WITHIN EASY REACH. KARLIE ALARM IS ON.
--- NOTE | 2017-07-26 22:30 | NUR ---
PT ASSISTED TO THE BATHROOM WITH MOD ASSIST. NO FURTHER NEEDS VOICED.
[2017-07-26 22:55] VITALS: BP 109/63
--- NOTE | 2017-07-27 00:05 | NUR ---
IN BED, EYES CLOSED. APPEARS COMFORTABLE.
--- NOTE | 2017-07-27 00:38 | NUR ---
RESITNG IN BED WITH EYES CLOSED.
--- NOTE | 2017-07-27 01:29 | NUR ---
PT ASSISTED TO THE BATHROOM. INC. CARE GIVEN, AND BED LINENS CHANGED.
--- NOTE | 2017-07-27 06:27 | NUR ---
PT RESTING IN BED WITH EYES CLOSED.ASSISTED TO BATHROOM PRN.
--- NOTE | 2017-07-27 08:19 | NUR ---
EATING BREAKFAST IN ROOM. CALL LIGHT IN REACH
[2017-07-27 08:48] VITALS: BP 122/72
--- NOTE | 2017-07-27 10:31 | NUR ---
PATIENT DISCHARGING TO [facility] IN [place]. FACILITY [facility] WILL TRANSPORT PATIENT PER FAMILY REQUEST. NO HOME HEALTH OR DME NEEDED AT THIS TIME. AN APPOINTMENT WITH DR. SOLOMON WILL BE MADE AT TIME OF DISCHRGE FROM FACILITY. PATIENT CHOICE FORM FOR SNF AND IMFM FORM SIGNED, EXPLAINED AND FILED IN CHART. FAMILY HAS BEEN NOTIFIED
--- NOTE | 2017-07-27 11:15 | NUR ---
D/C TO [facility] VIA W/C AND TRANSFER [facility]. PT TOOK ALL HER PERSONAL BELONGINGS WITH HER. REPORT CALLED TO [facility] AT [facility]. SENT [facility]ROL DOSE PACK WITH PT PAPERS.
--- NOTE | 2017-09-17 12:07 | DS ---
PATIENT:NYASIA HENRY :30 MEDICAL RECORD: [id number] DISCHARGE SUMMARY ADMISSION DATE: 07/12/17 DISCHARGE DATE: 07/27/17 This is a discharge dated 07/27/2017 from inpatient rehab. PRIMARY DIAGNOSIS: Decreased functional ability and ability to provide activities of daily living secondary to debility and myopathy after prolonged hospitalization for acute GI bleed. SECONDARY DIAGNOSES: 1. Lower extremity cellulitis. 2. Hypertension. 3. Acute blood loss anemia. 4. Nausea and vomiting. 5. Gastroesophageal reflux disease. 6. UTI. 7. Depression/anxiety. 8. Small hiatal hernia. 9. Urinary incontinence. HOSPITAL COURSE: Full H&P is located elsewhere on the chart on this 86-year-old female who was admitted to inpatient rehab for physical therapy and occupational therapy to improve gait, transfer skills, bed mobility, and activities of daily living to modified independent level. She was evaluated by PT and OT and their plans of care were followed. She required detention care for observation and assessment and medication administration. Electrolytes were managed by protocol. She developed some redness of the lower extremities and was started on Bactrim for possible cellulitis. Uric acid level was checked to rule out gout, it was in the normal range. She was cooperative with therapies, progressing towards goals. Case management was involved for discharge planning. She was considered stable for discharge on 07/27/2017. DISCHARGE MEDICATIONS: As per discharge medication reconciliation. DISCHARGE DISPOSITION: The patient is discharged to long term. She will continue her current diet and level of activity and will continue with PT and OT at the long term. She will follow with primary care at that facility. At least 30 minutes was spent in this discharge activity. TRANSINT:[id number] Voice Confirmation ID: [id number] DOCUMENT ID: [id number] Dictated By: SAI CASTANEDA I have interviewed/examined the above patient and agree with these documented findings. DISCHARGE SUMMARY REPORT [id number] NYASIA HENRY NEIL SHCMITT, OMAR BENOIT at 1207 at 1049 CC: [id number] DICTATION DATE: 09/16/17 172 RESPIRATORY CARE ASSISTANT: 09/16/17 1839 DIS IN 07/27/17 [place] [id number] [place], [place] [id number]
== END 2017-07-27 11:15 | DRG 378 ==
LOC: D.REHAB 13:20
PROVIDERS: ADMIT Emergency Medicine
DX: K92.2 Gastrointestinal hemorrhage, unspecified (principal); D62 Acute posthemorrhagic anemia; N17.9 Acute kidney failure, unspecified; N39.0 Urinary tract infection, site not specified; R53.81 Other malaise; G72.9 Myopathy, unspecified; K21.9 Gastro-esophageal reflux disease without esophagitis; F41.8 Other specified anxiety disorders; R42 Dizziness and giddiness; R53.83 Other fatigue; R53.1 Weakness; R32 Unspecified urinary incontinence

== ENCOUNTER 2018-04-10 18:32 | Emergency (ER) | payer MEDICARE, OTHER ==
[2017-07-13 10:06] VITALS: Ht 157.5 cm; Wt 85.0 kg
[~2018-04-10] VITALS: Ht 157.5 cm; Wt 85.0 kg
[2018-04-10] MEDS ORDERED: BAYER CHEWABLE81 MG PO (18:38)
[2018-04-10] MEDS ORDERED: LASIX40 MG (18:38)
[2018-04-10] MEDS ORDERED: KLOR-CON 1010 MEQ PO (18:39)
[2018-04-10] MEDS ORDERED: VITAMIN D31000 UNIT PO (18:39)
[2018-04-10 19:37] LABS: BASOPHILS 0 % (0-2); EOSINOPHILS 0.1 % (0-7); HEMATOCRIT 37.9 % (36.0-48.0); HEMOGLOBIN 12.6 g/dL (12-16); IMMATURE GRANULOCYTES 0.6 % (0-5); LYMPHOCYTES 5.6 % (15-50); MCH 30.4 pg (26.0-34.0); MCHC 33.2 g/dL (31.0-37.0); MCV 91.5 fL (80.0-100.0); MEAN PLATELET VOLUME 10.4 fL (7.4-10.4); MONOCYTES 4.7 % (2-11); PLATELET COUNT 257 10x3/uL (130-400); RBC 4.14 10x6/uL (4.00-5.40); RDW 13.3 % (11.5-14.5); WBC 14.2 10x3/uL (4.8-10.8)
[2018-04-10 19:42] LABS: APPEARANCE CLEAR (CLEAR); BACTERIA MANY /hpf (NONE SEEN); BILIRUBIN NEGATIVE (NEGATIVE); COLOR YELLOW (YELLOW); EPITHELIAL CELLS 0-5 /hpf (0-5); GLUCOSE NEGATIVE (NEGATIVE); KETONE NEGATIVE (NEGATIVE); NITRITE POSITIVE (NEGATIVE); PROTEIN NEGATIVE (NEGATIVE); RED CELLS - URINE OCC /hpf (0-5); UROBILINOGEN NORMAL (NORMAL); WHITE CELLS - URINE 0-5 /hpf (0-5)
[2018-04-10 19:59] LABS: ALBUMIN 3.6 g/dL (3.4-5.0); ALKALINE PHOSPHATASE 67 U/L (46-116); ALT (SGPT) 29 U/L (10-68); BILIRUBIN - TOTAL 0.42 mg/dL (0.2-1.3); CALC OSMOLALITY 296 mosm/kg (275-300); CALCIUM 10.3 mg/dL (8.5-10.1); CHLORIDE - SERUM 106 mmol/L (98-107); CREATININE - SERUM 1.3 mg/dL (0.6-1.3); GLUCOSE 114 mg/dL (74-106); POTASSIUM - SERUM 4.9 mmol/L (3.5-5.1); PROTEIN - SERUM 7.3 g/dL (6.4-8.2); SODIUM 143 mmol/L (136-145); UREA NITROGEN 43 mg/dL (7-18); eGFR NON AFRICAN AMERICAN 41 mL/min (90-120)
[2018-04-10 20:09] LABS: CKMB 2.2 U/L (0.0-3.6); CREATINE KINASE 81 UL (21-215)
[2018-04-10 20:15] LABS: TROPONIN-I < 0.017 ng/mL (0.000-0.060)
[2018-04-10 22:07] VITALS: BP 167/74
== END 2018-04-10 22:09 | disposition short-term general hospital (02) ==
LOC: D.ER 18:32
PROVIDERS: Family Medicine
DX: S22.079A Unspecified fracture of T9-T10 vertebra, initial encounter for closed fracture (principal); W19.XXXA Unspecified fall, initial encounter; Y93.89 Activity, other specified; Y92.019 Unspecified place in single-family (private) house as the place of occurrence of the external cause; N39.0 Urinary tract infection, site not specified; M25.522 Pain in left elbow

== ENCOUNTER → 2018-09-18 14:27 | Outpatient (CLI) | payer MEDICARE, OTHER ==
[2018-04-10 18:34] VITALS: BMI 34.3
[~2018-09-18 14:27] MED LIST changes: +BAYER CHEWABLE81 MG PO; +KLOR-CON 1010 MEQ PO; +LASIX40 MG; +VITAMIN D31000 UNIT PO
[2018-09-18 14:37] LABS: APPEARANCE CLEAR (CLEAR); BILIRUBIN NEGATIVE (NEGATIVE); COLOR YELLOW (YELLOW); GLUCOSE NEGATIVE (NEGATIVE); KETONE NEGATIVE (NEGATIVE); NITRITE NEGATIVE (NEGATIVE); PROTEIN TRACE mg/dL (NEGATIVE); SPECIFIC GRAVITY 1.015 (1.005-1.020); UROBILINOGEN NORMAL (NORMAL)
[2018-09-18 14:39] LABS: BACTERIA MANY /hpf (NONE SEEN); EPITHELIAL CELLS 0-5 /hpf (0-5); RED CELLS - URINE 0-5 /hpf (0-5); WHITE CELLS - URINE 0-5 /hpf (0-5)
[2018-09-18 14:40] LABS: TALC POWDER CRYSTALS 0-5 /hpf (NONE SEEN)
== END | disposition home or self-care (01) ==
LOC: D.LABREF 14:27
PROVIDERS: Nurse Practitioner Gerontology
DX: R30.0 Dysuria (principal); Z87.440 Personal history of urinary (tract) infections

== ENCOUNTER → 2019-01-17 10:50 | Outpatient (CLI) | payer OTHER ==
[2018-04-10 18:34] VITALS: BMI 34.3
[2019-01-17 16:22] LABS: APPEARANCE HAZY (CLEAR); BILIRUBIN NEGATIVE (NEGATIVE); COLOR YELLOW (YELLOW); GLUCOSE NEGATIVE (NEGATIVE); KETONE NEGATIVE (NEGATIVE); NITRITE POSITIVE (NEGATIVE); PROTEIN TRACE mg/dL (NEGATIVE); UROBILINOGEN NORMAL (NORMAL)
[2019-01-17 16:23] LABS: RED CELLS - URINE 0-5 /hpf (0-5); WHITE CELLS - URINE 0-5 /hpf (0-5)
[2019-01-17 16:24] LABS: BACTERIA MANY /hpf (NONE SEEN)
== END | disposition home or self-care (01) ==
LOC: D.LABREF 10:50
PROVIDERS: ATTEND Family Medicine
DX: R10.9 Unspecified abdominal pain (principal); R82.90 Unspecified abnormal findings in urine; R30.0 Dysuria

== ENCOUNTER 2019-10-03 00:41 | Inpatient (IN) | payer OTHER ==
[~2019-10-03] VITALS: Ht 157.5 cm; Wt 79.4 kg
--- NOTE | 2019-10-03 01:10 | NUR ---
PT TREATED IN DECONTAMINATION ROOM FOR BED BUGS. PT PLACED ON ISOLATION, PERSONAL BELONGINGS DOUBLE BAGGED.
--- NOTE | 2019-10-03 01:15 | NUR ---
PT DENIES COMPLAINTS TO EMS AND TO ER STAFF UPON ARRIVAL.
[2019-10-03 01:32] LABS: BASOPHILS 0.1 % (0-2); EOSINOPHILS 2.4 % (0-7); HEMATOCRIT 28.6 % (36.0-48.0); HEMOGLOBIN 8.2 g/dL (12-16); IMMATURE GRANULOCYTES 0.2 % (0-5); LYMPHOCYTES 19.3 % (15-50); MCH 22.6 pg (26.0-34.0); MCHC 28.7 g/dL (31.0-37.0); MCV 78.8 fL (80.0-100.0); MEAN PLATELET VOLUME 9.3 fL (7.4-10.4); MONOCYTES 9.8 % (2-11); NEUTROPHILS 68.2 % (40-80); PLATELET COUNT 355 10x3/uL (130-400); RBC 3.63 10x6/uL (4.00-5.40); RDW 15.8 % (11.5-14.5); WBC 8.2 10x3/uL (4.8-10.8)
[2019-10-03 01:37] LABS: APTT 29.1 SECONDS (22.8-39.4); INR 1.26 (0.85-1.17); PROTIME 15.3 SECONDS (11.6-15.0)
[2019-10-03 01:38] LABS: ANION GAP 11.5 mmol/L (8-16); CALCIUM 10.4 mg/dL (8.5-10.1); CARBON DIOXIDE 28.6 mmol/L (21.0-32.0); CREATININE - SERUM 1.4 mg/dL (0.6-1.3); POTASSIUM - SERUM 4.1 mmol/L (3.5-5.1)
[2019-10-03 02:00] LABS: ALBUMIN 3.2 g/dL (3.4-5.0); BILIRUBIN - TOTAL 0.38 mg/dL (0.2-1.3); MAGNESIUM - SERUM 1.8 mg/dL (1.8-2.4); THYROID STIMULATING HORMONE 0.36 uIU/mL (0.36-3.74)
[2019-10-03 02:01] LABS: TROPONIN-I 0.259 ng/mL (0.000-0.060)
[2019-10-03 03:13] LABS: APPEARANCE HAZY (CLEAR); BILIRUBIN NEGATIVE (NEGATIVE); COLOR YELLOW (YELLOW); GLUCOSE NEGATIVE (NEGATIVE); KETONE NEGATIVE (NEGATIVE); NITRITE POSITIVE (NEGATIVE); PROTEIN TRACE mg/dL (NEGATIVE); SPECIFIC GRAVITY 1.015 (1.005-1.020); UDS - AMPHET NEGATIVE QUAL (NEGATIVE); UDS - BARB NEGATIVE QUAL (NEGATIVE); UDS - BENZO NEGATIVE QUAL (NEGATIVE); UDS - COCAINE NEGATIVE QUAL (NEGATIVE); UDS - OPIATE NEGATIVE QUAL (NEGATIVE); UDS - PCP NEGATIVE QUAL (NEGATIVE); UDS - THC NEGATIVE QUAL (NEGATIVE); UROBILINOGEN NORMAL (NORMAL)
[2019-10-03 03:14] LABS: BACTERIA MANY /hpf (NEGATIVE); EPITHELIAL CELLS 0-5 /hpf (0-5); RED CELLS - URINE 0-5 /hpf (0-5); WHITE CELLS - URINE 0-5 /hpf (NEGATIVE)
--- NOTE | 2019-10-03 04:10 | NUR ---
RECEIVED PT FROM ER VIA STRETCHER. CONTACT ISO IN USE FOR BEDBUGS FOUND UPON ENTERING THE ER. NO BEDBUGS SEEN. PT IS ALERT AND ORIENTED. STATES SHE LIVES ALONE. UNABLE TO PROVIDE STAFF WITH ER CONTACT NUMBER. C/O GEN PAIN. SAO2 88% ON ROOM AIR. O2 @ 2L/NC APPLIED AND SAO2 INCREASED TO 95%. PT HAS HX OF AFIB AND TELEMETRY SHOWS UNCONTROLLED AFIB WITH RATE OF 103. NS @ 125ML/HR INFUSING IN LT WRIST WITH LEVAQUIN IVPB INFUSING. KARLIE ALARM ON FOR PT SAFETY. SR ELEVATED X2. CL IN REACH. ANSWERS MOST QUESTIONS. RESP NONLABORED. NO ACUTE DISTRESS.
[2019-10-03 04:38] VITALS: BP 128/73; BMI 32.1
[2019-10-03 07:19] LABS: % SATURATION 3 % (15-55); IRON 12 ug/dl (35-150); TOTAL IRON BIND CAPACITY 333 ug/dl (260-445); UNSAT IRON BIND CAPACITY 321 ug/dl (150-375)
[2019-10-03 08:46] VITALS: BP 134/73
[2019-10-03 11:40] LABS: CKMB 1.1 U/L (0.0-3.6); CREATINE KINASE 40 UL (21-215); MAGNESIUM - SERUM 1.9 mg/dL (1.8-2.4)
[2019-10-03 11:41] LABS: TROPONIN-I 0.223 ng/mL (0.000-0.060)
[2019-10-03 13:11] VITALS: BP 120/64
[2019-10-03 13:58] VITALS: Ht 157.5 cm; Wt 79.4 kg
--- NOTE | 2019-10-03 15:49 | MORECARE ---
CASE MANAGEMENT DISCHARGE SUMMARY PATIENT: NYASIA HENRY UNIT: [id number] ADM DATE: 10/03/19 AGE: 88 : 30 SEX: F ROOM/BED: D.2227 AUTHOR: JANY CRUZ PHYSICIAN: REFERRING PHYSICIAN: CLARA WONG MD DATE OF SERVICE: 10/03/19 Discharge Plan Patient Name: NYASIA HENRY Facility: [facility]:[place] : 1930 Planned Disposition: Detention Facility Anticipated Discharge Date: Discharge Date: Expected LOS: Initial Reviewer: [email or web address] Initial Review Date: 10/03/2019 Generated: 10/03/19 4:49 pm Patient Name: NYASIA HENRY Page [phone] at 1549 All edits/amendments must be made on the electronic document DICTATION DATE: 10/03/19 1549 SUPERVISOR PRODUCTION: BEATRIZ 10/03/19 1549 RPT#: [id number] DC DATE: STATUS: ADM IN [facility] [address] [place] [address] END OF REPORT
--- NOTE | 2019-10-03 15:57 | MORECARE ---
CASE MANAGEMENT DISCHARGE SUMMARY PATIENT: NYASIA HENRY UNIT: [id number] ADM DATE: 10/03/19 AGE: 88 : 30 SEX: F ROOM/BED: D.2227 AUTHOR: ANTHONYDOC PHYSICIAN: REFERRING PHYSICIAN: CLARA WONG MD DATE OF SERVICE: 10/03/19 Discharge Plan Patient Name: NYASIA HENRY Facility: [facility]:[place] : 1930 Planned Disposition: Senior Living Facility Anticipated Discharge Date: Discharge Date: Expected LOS: Initial Reviewer: [email or web address] Initial Review Date: 10/03/2019 Generated: 10/03/19 4:56 pm Comments DCP- Discharge Planning Updated by [email or web address]: Fang Holly on 10/03/19 2:[address] Patient Name: NYASIA HENRY Admission Status: ER Accout number: [id number] Admission Date: 10-03-2019 : 1930 Admission Diagnosis: Attending: CLARA WONG Current LOS: 1 Anticipated DC Date: Planned Disposition: Senior Living Facility Primary Insurance: [employer] Discharge Planning Comments: CM met with patient to complete initial dc planning assessment. CM educated patient on the CM role and verbal consent given by patient to complete assessment. Patient lives at home alone, she states she has a "animal care service worker come in and out" and is unable to remember her name. She states that she does not work for a company. I spoke with patient's grandson (Raudel Henry) twice today and he states that at discharge they are planning on her going to [place] to be closer to her daughter. He states she is not safe to go home. He states that he will be able to take her to [place]. He also states that he will get a list of skilled facilities to send a referral there if she needs a skilled facility. I told him that she will be here at least over the weekend and to call me on Sunday or I will get with him on which skilled facility he would like me to send a referral to. CM will continue to follow and will assist as needed with dc plans/needs. It Service Technician: Fang Holly DCPIA - Discharge Planning Initial Assessment Updated by [email or web address]: Fang Holly on 10/03/19 3:49 pm * Is the patient Alert and Oriented? Yes * How many steps to enter\\exit or inside your home? 0/0 * PCP Dr. Andrade * Pharmacy [facility] * Preadmission Environment Home Alone * ADLs Partial Dependent * Partial ADLs (Assistance needed) Ambulation * Equipment Cane Oxygen Walker Wheelchair * List name and contact numbers for known caregivers / representatives who currently or will assist patient after discharge: Raudel [facility]on [facility] - [phone] [facility] [place] - [phone] * Verbal permission to speak to the caregivers and representatives has been obtained from the patient. Yes * Community resources currently utilized Private Duty Care * Additional services required to return to the preadmission environment? Yes * Can the patient safely return to the preadmission environment? No * Has this patient been hospitalized within the prior 30 days at any hospital? No Last DP export: 10/03/19 2:49 p Patient Name: NYASIA HENRY Page [phone] at 1557 All edits/amendments must be made on the electronic document DICTATION DATE: 10/03/191555 AREA DIRECTOR: BEATRIZ 10/03/191555 RPT#: [id number] DC DATE: STATUS: ADM IN [facility] [address] [place] [address] END OF REPORT
[2019-10-03 16:29] VITALS: BP 104/69
--- NOTE | 2019-10-03 18:33 | NUR ---
I have reviewed this patient and I concur with the Shift Assessment completed by the Licensed Practical Nurse today this shift.
--- NOTE | 2019-10-03 20:00 | NUR ---
AWAKE,ALERT WITH CONFUSION NOTED. RESP EVEN AND UNALBORED. NO DISTRESS NOTED. IV TO LEFT WRIST INTACT WITHOUT REDNESS OR EDEMA NOTED. FALL PRECAUTIONS INTACT. CL IN REACH. REMAINS IN ISOLATION.
[2019-10-03 21:00] VITALS: BP 97/56
[2019-10-04 00:16] VITALS: BP 101/56
[2019-10-04 05:07] VITALS: BP 128/79
[2019-10-04 06:45] LABS: ANION GAP 14.4 mmol/L (8-16); CALCIUM 9.2 mg/dL (8.5-10.1); CARBON DIOXIDE 23.7 mmol/L (21.0-32.0); CREATININE - SERUM 1.2 mg/dL (0.6-1.3); MAGNESIUM - SERUM 1.8 mg/dL (1.8-2.4); PHOSPHOROUS 3.8 mg/dL (2.5-4.9); POTASSIUM - SERUM 4.1 mmol/L (3.5-5.1)
[2019-10-04 06:55] LABS: BASOPHILS 0.1 % (0-2); EOSINOPHILS 0.8 % (0-7); HEMOGLOBIN 7.6 g/dL (12-16); IMMATURE GRANULOCYTES 0.2 % (0-5); LYMPHOCYTES 11.9 % (15-50); MCH 22.7 pg (26.0-34.0); MCHC 28.1 g/dL (31.0-37.0); MCV 80.6 fL (80.0-100.0); MEAN PLATELET VOLUME 9.8 fL (7.4-10.4); MONOCYTES 7.7 % (2-11); NEUTROPHILS 79.3 % (40-80); RBC 3.35 10x6/uL (4.00-5.40); RDW 15.9 % (11.5-14.5); WBC 8.6 10x3/uL (4.8-10.8)
[2019-10-04 06:57] LABS: PLATELET COUNT 260 10x3/uL (130-400)
--- NOTE | 2019-10-04 07:45 | NUR ---
PATIENT IN BED WITH NO COMPLAINTS OR SIGNS OF DISTRESS. SITTING UP IN BED WITH CALL LIGHT WITHIN REACH.
[2019-10-04 08:46] VITALS: BP 137/71
[2019-10-04 09:48] LABS: CKMB 1.5 U/L (0.0-3.6); CREATINE KINASE 68 UL (21-215); TROPONIN-I 0.173 ng/mL (0.000-0.060)
[2019-10-04 12:45] VITALS: BP 129/77
--- NOTE | 2019-10-04 17:40 | NUR ---
STARTED FIRST UNIT OF BLOOD AT THIS TIME. IV INTACT. VS STABLE. PATIENT HAS NO COMPLAINTS. WILL CONTINUE TO MONITOR. CALL LIGHT WITHIN REACH.
--- NOTE | 2019-10-04 18:00 | NUR ---
PATIENT IN BED SITTING UP EATING AT THIS TIME. BLOOD INFUSING. VS STABLE. NO COMPLAINTS OR SIGNS OF DISTRESS. IV INTACT. CALL LIGHT WITHIN REACH.
[2019-10-04 18:02] VITALS: BP 124/75
--- NOTE | 2019-10-04 19:15 | NUR ---
BEDSIDE REPORT RECEIVED. PATIENT FINISHING UNIT OF BLOOD. VITAL SIGNS STABLE. DENIES NEEDS AT THIS TIME. CPOC.
[2019-10-04 19:41] VITALS: BP 132/70
--- NOTE | 2019-10-04 20:13 | NUR ---
VITAL SIGNS STABLE. INITIATED UNIT PRBC'S INFUSING. VITALS SIGNS REMAIN STABLE 15 MINUTES. INCREASED RATE OF INFUSION. TRANSFUSION MONITORED BY DEMETRA HENDERSON.
--- NOTE | 2019-10-04 22:41 | NUR ---
SECOND INFUSION COMPLETE. PATIENT TOELRATED WELL. DENIES FURTHER NEEDS. CALL LIGHT IN REACH.
--- NOTE | 2019-10-05 00:15 | NUR ---
BED BATH PROVIDED. CALL LIGHT IN REACH. CPOC,
[2019-10-05 00:42] VITALS: BP 154/84
--- NOTE | 2019-10-05 03:45 | NUR ---
I have reviewed this patient and I concur with the Shift Assessment completed by the Licensed Practical Nurse today this shift.
[2019-10-05 04:48] VITALS: BP 143/95
[2019-10-05 04:48] LABS: BASOPHILS 0.2 % (0-2); EOSINOPHILS 0.2 % (0-7); IMMATURE GRANULOCYTES 0.4 % (0-5); LYMPHOCYTES 11.9 % (15-50); MCH 23.6 pg (26.0-34.0); MCHC 29.4 g/dL (31.0-37.0); MCV 80.4 fL (80.0-100.0); MEAN PLATELET VOLUME 9.4 fL (7.4-10.4); MONOCYTES 8.9 % (2-11); NEUTROPHILS 78.4 % (40-80); PLATELET COUNT 284 10x3/uL (130-400); RBC 4.23 10x6/uL (4.00-5.40); WBC 10.7 10x3/uL (4.8-10.8)
[2019-10-05 05:22] LABS: ANION GAP 12.8 mmol/L (8-16); CALCIUM 9.7 mg/dL (8.5-10.1); CARBON DIOXIDE 25.1 mmol/L (21.0-32.0); CREATININE - SERUM 1.3 mg/dL (0.6-1.3); MAGNESIUM - SERUM 1.6 mg/dL (1.8-2.4); PHOSPHOROUS 3.5 mg/dL (2.5-4.9); POTASSIUM - SERUM 3.9 mmol/L (3.5-5.1)
[2019-10-05 08:04] VITALS: BP 137/88
--- NOTE | 2019-10-05 08:45 | NUR ---
PATIENT IN BED WITH IV INTACT. NO COMPLAINTS OR SIGNS OF DISTRESS. SITTING UP EATING BREAKFAST. CALL LIGHT WITHIN REACH.
[2019-10-05 10:11] LABS: CKMB 0.9 U/L (0.0-3.6); CREATINE KINASE 24 UL (21-215)
[2019-10-05 10:18] LABS: TROPONIN-I 0.124 ng/mL (0.000-0.060)
[2019-10-05 12:28] VITALS: BP 142/73
[2019-10-05 16:57] VITALS: BP 129/78
--- NOTE | 2019-10-05 18:48 | NUR ---
PATIENT IN BED EATING AT THIS TIME. SPOKE WITH GRANDSON ON PHONE. STATED SHE CANT FIND HER GLASSES. GLASSES CASE IN PURSE. CELL PHONE AND PURSE NOW AT BEDSIDE. PER PATIENT REQUEST. IV INTACT. NO COMPLAINTS OR SIGNS OF DISTRESS. SERGEI LIGHT WITHIN REACH.
--- NOTE | 2019-10-05 20:00 | NUR ---
AWAKE,ALERT.NO COMPLAINTS VOCIED. RESP EVEN AND UANBLROED. O2 @ 2L PER NC ON. NO DISTRESS NOTED.IV TO LEFT WRIST INTACT WITHOUT REDNESS OR EDEMA NOTED. CL IN REACH. FAMILY AT BEDSIDE.
[2019-10-05 20:42] VITALS: BP 135/88
[2019-10-06 01:34] VITALS: BP 130/70
--- NOTE | 2019-10-06 04:02 | NUR ---
I have reviewed this patient and I concur with the Shift Assessment completed by the Licensed Practical Nurse today this shift.
[2019-10-06 05:12] VITALS: BP 156/88
[2019-10-06 05:43] LABS: ANION GAP 11.3 mmol/L (8-16); CALCIUM 10.1 mg/dL (8.5-10.1); CARBON DIOXIDE 26.8 mmol/L (21.0-32.0); CREATININE - SERUM 1.2 mg/dL (0.6-1.3); MAGNESIUM - SERUM 1.8 mg/dL (1.8-2.4); PHOSPHOROUS 3.1 mg/dL (2.5-4.9); POTASSIUM - SERUM 4.1 mmol/L (3.5-5.1)
[2019-10-06 05:44] LABS: BASOPHILS 0.2 % (0-2); EOSINOPHILS 0.7 % (0-7); HEMATOCRIT 35.4 % (36.0-48.0); IMMATURE GRANULOCYTES 0.2 % (0-5); LYMPHOCYTES 16.9 % (15-50); MCH 23.3 pg (26.0-34.0); MCHC 28.2 g/dL (31.0-37.0); MEAN PLATELET VOLUME 9.8 fL (7.4-10.4); MONOCYTES 10.2 % (2-11); NEUTROPHILS 71.8 % (40-80); PLATELET COUNT 261 10x3/uL (130-400); RBC 4.29 10x6/uL (4.00-5.40); RDW 16.6 % (11.5-14.5); WBC 8.3 10x3/uL (4.8-10.8)
[2019-10-06 05:45] LABS: MCV 82.5 fL (80.0-100.0)
--- NOTE | 2019-10-06 07:30 | NUR ---
PT IS WITHOUT NEEDS.CALL LIGHT IN REACH
[2019-10-06 08:20] VITALS: BP 139/87
--- NOTE | 2019-10-06 10:32 | NUR ---
PT IS LYING IN BED WANTING TO GET UP TO CHAIR, ADVISED WILL LET PT KNOW PT READY TO GET IN CHAIR
--- NOTE | 2019-10-06 11:37 | MORECARE ---
CASE MANAGEMENT DISCHARGE SUMMARY PATIENT: NYASIA HENRY UNIT: [id number] ADM DATE: 10/03/19 AGE: 88 : 30 SEX: F ROOM/BED: D.2227 AUTHOR: ANTHONY,DOC PHYSICIAN: REFERRING PHYSICIAN: CLARA WONG MD DATE OF SERVICE: 10/06/19 Discharge Plan Patient Name: NYASIA HENRY Facility: [facility]:[place] : 1930 Planned Disposition: Detention Facility Anticipated Discharge Date: Discharge Date: Expected LOS: Initial Reviewer: [email or web address] Initial Review Date: 10/03/2019 Generated: 10/06/19 12:37 pm Comments DCP- Discharge Planning Updated by [email or web address]: Fang Holly on 10/06/19 10:[address] I spoke with patient's grandson, Raudel, today and he states that his grandmother is in agreement to go to a skilled facility in [place] where her daughter lives. Raudel told me I would need to contact her daughter, Nessa, to find out which facility to send the referral to. I called Nessa at [phone] and informed her I would need the name of the facility to send a referral to and left my call back number. I informed Raudel that I did not get ahold of her and I left a message. He states he has also texted her to call me. CM will continue to follow and assist with discharge planning/needs. DCP- Discharge Planning Updated by [id number]: Fang Holly on 10/03/19 2:[address] Patient Name: NYASIA HENRY Admission Status: ER Accout number: [id number] Admission Date: 10-03-2019 : 1930 Admission Diagnosis: Attending: CLARA WONG Current LOS: 1 Anticipated DC Date: Planned Disposition: Detention Facility Primary Insurance: NOVASYSMCR Discharge Planning Comments: CM met with patient to complete initial dc planning assessment. CM educated patient on the CM role and verbal consent given by patient to complete assessment. Patient lives at home alone, she states she has a "child care lead teacher come in and out" and is unable to remember her name. She states that she does not work for a [employer]. I spoke with patient's grandson (Raudel Henry) twice today and he states that at discharge they are planning on her going to [place] to be closer to her daughter. He states she is not safe to go home. He states that he will be able to take her to [place]. He also states that he will get a list of skilled facilities to send a referral there if she needs a skilled facility. I told him that she will be here at least over the weekend and to call me on Sunday or I will get with him on which skilled facility he would like me to send a referral to. CM will continue to follow and will assist as needed with dc plans/needs. Specialties Operator: Fang Holly DCPIA - Discharge Planning Initial Assessment Updated by [email or web address]: Fang Holly on 10/03/19 3:49 pm * Is the patient Alert and Oriented? Yes * How many steps to enter\\exit or inside your home? 0/0 * PCP Dr. Andrade * Pharmacy [facility] * Preadmission Environment Home Alone * ADLs Partial Dependent * Partial ADLs (Assistance needed) Ambulation * Equipment Cane Oxygen Walker Wheelchair * List name and contact numbers for known caregivers / representatives who currently or will assist patient after discharge: Raudel Henry - deon - Wilbur - [phone] Nessa DONNASerenity - Bubba - [phone] * Verbal permission to speak to the caregivers and representatives has been obtained from the patient. Yes * Community resources currently utilized Private Duty Care * Additional services required to return to the preadmission environment? Yes * Can the patient safely return to the preadmission environment? No * Has this patient been hospitalized within the prior 30 days at any hospital? No Last DP export: 10/03/19 2:57 p Patient Name: NYASIA HENRY Page [id number] at 1137 All edits/amendments must be made on the electronic document DICTATION DATE: 10/06/191136 DIETARY AID: BEATRIZ 10/06/191136 RPT#: [id number] NE DATE: STATUS: ADM IN [facility] [address] [place] [address] END OF REPORT
[2019-10-06 12:03] VITALS: BP 120/71
[2019-10-06 17:04] VITALS: BP 120/72
--- NOTE | 2019-10-06 20:00 | NUR ---
ASSESSMENT PER FLOWSHEET.IV PATENT LEFT FOREARM OF NS AT 30CC'S/HR. SITE CLEAR. PT IN CONTACT ISOLATION FOR BED BUGS. INSTRUCTED PT'S VISITORS TO WEAR ISOLATION CLOTHING.
[2019-10-06 21:08] VITALS: BP 133/70
--- NOTE | 2019-10-06 22:00 | NUR ---
MEDS GIVEN PER DEC.VOIDS ON BEDPAN. SPACE SYSTEMS OPERATIONS SUPERINTENDENT SAW BUG CRAWLING ON PILLOWCASE.
--- NOTE | 2019-10-07 | NUR ---
EYES CLOSED RESPIRATIONS WITH EASE AND UNLABORED.
[2019-10-07 01:05] VITALS: BP 136/87
--- NOTE | 2019-10-07 03:04 | NUR ---
RESTING QUIETLY.O2 ON AT 2L/M PER NC. NO DISTRESS. SR UP X2 CALL LIGHT WITHIN REACH.KARLIE MAT IN USE.
[2019-10-07 04:38] VITALS: BP 138/84
[2019-10-07 06:24] LABS: ANION GAP 10.2 mmol/L (8-16); CALCIUM 9.8 mg/dL (8.5-10.1); CARBON DIOXIDE 26.1 mmol/L (21.0-32.0); CREATININE - SERUM 1.2 mg/dL (0.6-1.3); MAGNESIUM - SERUM 1.8 mg/dL (1.8-2.4); PHOSPHOROUS 3.2 mg/dL (2.5-4.9); POTASSIUM - SERUM 4.3 mmol/L (3.5-5.1)
[2019-10-07 07:16] LABS: BASOPHILS 0.2 % (0-2); EOSINOPHILS 1.1 % (0-7); HEMATOCRIT 34.7 % (36.0-48.0); HEMOGLOBIN 9.6 g/dL (12-16); IMMATURE GRANULOCYTES 0.4 % (0-5); LYMPHOCYTES 13.8 % (15-50); MCH 23.2 pg (26.0-34.0); MCHC 27.7 g/dL (31.0-37.0); MEAN PLATELET VOLUME 10.2 fL (7.4-10.4); MONOCYTES 8.5 % (2-11); RBC 4.13 10x6/uL (4.00-5.40); RDW 16.8 % (11.5-14.5); WBC 8.5 10x3/uL (4.8-10.8)
[2019-10-07 07:24] LABS: PLATELET COUNT 317 10x3/uL (130-400)
[2019-10-07 08:37] VITALS: BP 108/78
--- NOTE | 2019-10-07 10:15 | MORECARE ---
CASE MANAGEMENT DISCHARGE SUMMARY PATIENT: NYASIA HENRY UNIT: [id number] ADM DATE: 10/03/19 AGE: 88 : 30 SEX: F ROOM/BED: D.2227 AUTHOR: ANTHONY,DOC PHYSICIAN: REFERRING PHYSICIAN: CLARA WONG MD DATE OF SERVICE: 10/07/19 Discharge Plan Patient Name: NYASIA HENRY Facility: [facility]:[place] : 1930 Planned Disposition: Longterm Facility Anticipated Discharge Date: Discharge Date: Expected LOS: Initial Reviewer: [email or web address] Initial Review Date: 10/03/2019 Generated: 10/07/19 11:14 am Comments DCP- Discharge Planning Updated by [id number]: Fang Aliciaradha on 10/07/19 9:[address] Patient's daughter, Nessa Henry, called me to give me a list of the skilled facilities she has chosen for her mother. She states she does not want a assisted living. She states the plan is for her mother to go to a SNF for rehab and discharge to daughter's home in [place] after rehab. [facility], [facility] and are all assisted living facilities. [facility] a [facility]. I have called [facility] in [place] at [address] Phone - [phone] and the student accounts coordinator is in a meeting and will return my call. CM will continue to follow and assist with discharge planning/needs. [facility] P- [phone] F - [phone] DCP- Discharge Planning Updated by [email or web address]: Fang Aliciaradha on 10/06/19 10:[address] I spoke with patient's grandson, Raudel, today and he states that his grandmother is in agreement to go to a skilled facility in [place] where her daughter lives. Raudel told me I would need to contact her daughter, Nessa, to find out which facility to send the referral to. I called Nessa at [phone] and informed her I would need the name of the facility to send a referral to and left my call back number. I informed Raudel that I did not get ahold of her and I left a message. He states he has also texted her to call me. CM will continue to follow and assist with discharge planning/needs. DCP- Discharge Planning Updated by [email or web address]: Fang Holly on 10/03/19 2:[address] Patient Name: NYASIA HENRY Admission Status: ER Accout number: [id number] Admission Date: 10-03-2019 : 1930 Admission Diagnosis: Attending: CLARA WONG Current LOS: 1 Anticipated DC Date: Planned Disposition: Longterm Facility Primary Insurance: [employer] Discharge Planning Comments: CM met with patient to complete initial dc planning assessment. CM educated patient on the CM role and verbal consent given by patient to complete assessment. Patient lives at home alone, she states she has a "mall plant caretaker come in and out" and is unable to remember her name. She states that she does not work for a company. I spoke with patient's grandson (Raudel Henry) twice today and he states that at discharge they are planning on her going to [place] to be closer to her daughter. He states she is not safe to go home. He states that he will be able to take her to [place]. He also states that he will get a list of skilled facilities to send a referral there if she needs a skilled facility. I told him that she will be here at least over the weekend and to call me on Sunday or I will get with him on which skilled facility he would like me to send a referral to. CM will continue to follow and will assist as needed with dc plans/needs. Bed Laster: Fang Holly DCPIA - Discharge Planning Initial Assessment Updated by [email or web address]: Fang Holly on 10/03/19 3:49 pm * Is the patient Alert and Oriented? Yes * How many steps to enter\\exit or inside your home? 0/0 * PCP Dr. Andrade * Pharmacy [facility] * Preadmission Environment Home Alone * ADLs Partial Dependent * Partial ADLs (Assistance needed) Ambulation * Equipment Cane Oxygen Walker Wheelchair * List name and contact numbers for known caregivers / representatives who currently or will assist patient after discharge: Raudel Henyr - deon - Wilbur - [phone] [facility] [facility] [place] - [phone] * Verbal permission to speak to the caregivers and representatives has been obtained from the patient. Yes * Community resources currently utilized Private Duty Care * Additional services required to return to the preadmission environment? Yes * Can the patient safely return to the preadmission environment? No * Has this patient been hospitalized within the prior 30 days at any hospital? No External Providers External Provider: OTHER-OTHER Next Contact Date: Service Request Date: Service Type: Resolution: Reviewer: Comments: Coverage Notice Reviewer: [email or web address] Deloris Holly Notice Issued Date-Time: 10/07/2019 10:00 Notice Type: Patient Choice Letter Notice Delivered To: Family Member Relationship to Patient: Daughter Tip Banding Machine Operator Name: Nessa Henry Delivery Method: PHONE - Phone Renetta Days: Prior Verbal Notification: Recipient Understood Notice: Yes Recipient Signature: Med Rec Note Co-signed by Attending: Coverage Notice Comment: Spoke with daughter, Nessa, on the phone and she gave me a KELLI for SNF. She does not want assisted living 1)[facility] 2)[facility] 3)[facility] 4) [facility]. Last DP export: 10/06/19 10:37 a Patient Name: NYASIA HENRY Page 03169 at 1015 All edits/amendments must be made on the electronic document DICTATION DATE: 10/07/19 1014 MARKETING LIAISON: BEATRIZ 10/07/19 1014 RPT#: [id number] DC DATE: STATUS: ADM IN [facility] [address] [place] [address] END OF REPORT
--- NOTE | 2019-10-07 11:00 | NUR ---
Nutrition Follow-up: Patient remains in isolation for bedbugs. Diet: Regular PO intake: ~56% average x last 6 meals No BM since admit x 4 days now. WT: 175# (10/03/19) Meds and labs reviewed Continue regular diet. Will add Ensure to meal trays. RD following.
--- NOTE | 2019-10-07 11:02 | MORECARE ---
CASE MANAGEMENT DISCHARGE SUMMARY PATIENT: NYASIA HENRY UNIT: [id number] ADM DATE: 10/03/19 AGE: 88 : 30 SEX: F ROOM/BED: D.2227 AUTHOR: ANTHONY,DOC PHYSICIAN: REFERRING PHYSICIAN: CLARA WONG MD DATE OF SERVICE: 10/07/19 Discharge Plan Patient Name: NYASIA HENRY Facility: [facility]:[place] : 1930 Planned Disposition: Alf Facility Anticipated Discharge Date: Discharge Date: Expected LOS: Initial Reviewer: [email or web address] Initial Review Date: 10/03/2019 Generated: 10/07/19 12:02 pm Comments DCP- Discharge Planning Updated by [email or web address]: Fang Holly on 10/07/19 10:[address] Ren with APS called and states he will see patient today, update given as well as phone number for patient's daughter and grand son. He asked to be called when discharged. Ren with APS - [phone] DCP- Discharge Planning Updated by [email or web address]: Fang Avni on 10/07/19 9:[address] Patient's daughter, Nessa Henry, called me to give me a list of the skilled facilities she has chosen for her mother. She states she does not want a assisted living. She states the plan is for her mother to go to a SNF for rehab and discharge to daughter's home in [place] after rehab. [facility] a [facility]. I have called [facility] in [place] at [address] Phone - [phone] and the sexual assault response coordinator is in a meeting and will return my call. CM will continue to follow and assist with discharge planning/needs. The [facility] P- [phone] F - [phone] DCP- Discharge Planning Updated by [email or web address]: Fang Holly on 10/06/19 10:[address] I spoke with patient's grandson, Raudel, today and he states that his grandmother is in agreement to go to a skilled facility in [place] where her daughter lives. Raudel told me I would need to contact her daughter, Nessa, to find out which facility to send the referral to. I called Nessa at [phone] and informed her I would need the name of the facility to send a referral to and left my call back number. I informed Raudel that I did not get ahold of her and I left a message. He states he has also texted her to call me. CM will continue to follow and assist with discharge planning/needs. DCP- Discharge Planning Updated by [id number]: Fang Holly on 10/03/19 2:[address] Patient Name: NYASIA HENRY Admission Status: ER Accout number: [id number] Admission Date: 10-03-2019 : 1930 Admission Diagnosis: Attending: CLARA WONG Current LOS: 1 Anticipated DC Date: Planned Disposition: Alf Facility Primary Insurance: [employer] Discharge Planning Comments: CM met with patient to complete initial dc planning assessment. CM educated patient on the CM role and verbal consent given by patient to complete assessment. Patient lives at home alone, she states she has a "health care recruiter come in and out" and is unable to remember her name. She states that she does not work for a company. I spoke with patient's grandson (Raudel Henry) twice today and he states that at discharge they are planning on her going to [place] to be closer to her daughter. He states she is not safe to go home. He states that he will be able to take her to [place]. He also states that he will get a list of skilled facilities to send a referral there if she needs a skilled facility. I told him that she will be here at least over the weekend and to call me on Sunday or I will get with him on which skilled facility he would like me to send a referral to. CM will continue to follow and will assist as needed with dc plans/needs. Fishing Hand: Fnag Holly DCPIA - Discharge Planning Initial Assessment Updated by [email or web address]: Fang Holly on 10/03/19 3:49 pm * Is the patient Alert and Oriented? Yes * How many steps to enter\\exit or inside your home? 0/0 * PCP Dr. Andrade * Pharmacy [facility] * Preadmission Environment Home Alone * ADLs Partial Dependent * Partial ADLs (Assistance needed) Ambulation * Equipment Cane Oxygen Walker Wheelchair * List name and contact numbers for known caregivers / representatives who currently or will assist patient after discharge: Raudel Henry deon - Wilbur - [phone] Nessa Puentes DTR - Bubba - [phone] * Verbal permission to speak to the caregivers and representatives has been obtained from the patient. Yes * Community resources currently utilized Private Duty Care * Additional services required to return to the preadmission environment? Yes * Can the patient safely return to the preadmission environment? No * Has this patient been hospitalized within the prior 30 days at any hospital? No Coverage Notice Reviewer: [email or web address] Deloris Holly Notice Issued Date-Time: 10/07/2019 10:00 Notice Type: Patient Choice Letter Notice Delivered To: Family Member Relationship to Patient: Daughter Propellant Assembler Name: Nessa Henry Delivery Method: PHONE - Phone Renetta Days: Prior Verbal Notification: Recipient Understood Notice: Yes Recipient Signature: Med Rec Note Co-signed by Attending: Coverage Notice Comment: Spoke with daughter, Nessa, on the phone and she gave me a KELLI for SNF. She does not want assisted living 1)[facility] 2)[facility] 3)[facility] 4) [facility]. Last DP export: 10/07/19 9:15 Patient Name: NYASIA HENRY Page 45615 at 1102 All edits/amendments must be made on the electronic document DICTATION DATE: 10/07/19 110 UNLEAVENED DOUGH MIXER: BEATRIZ 10/07/19 1102 RPT#: [id number] DC DATE: STATUS: ADM IN [facility] [address] [place] [address] END OF REPORT
[2019-10-07 12:24] VITALS: BP 164/94
--- NOTE | 2019-10-07 13:50 | MORECARE ---
CASE MANAGEMENT DISCHARGE SUMMARY PATIENT: NYASIA HENRY UNIT: [id number] ADM DATE: 10/03/19 AGE: 88 : 30 SEX: F ROOM/BED: D.2227 AUTHOR: ANTHONY,DOC PHYSICIAN: REFERRING PHYSICIAN: CLARA WONG MD DATE OF SERVICE: 10/07/19 Discharge Plan Patient Name: NYASIA HENRY Facility: [facility]:[place] : 1930 Planned Disposition: Assisted Facility Anticipated Discharge Date: Discharge Date: Expected LOS: Initial Reviewer: [email or web address] Initial Review Date: 10/03/2019 Generated: 10/07/19 2:49 pm Comments DCP- Discharge Planning Updated by [email or web address]: Fang Holly on 10/07/19 12:[address] I spoke with Khang at [facility] and he is reviewing patient's clinicals. He states he will probably have a liason come and meet with the patient. Khang states he will keep me updated. She will need insurance authorization prior to admission to a skilled facility. CM will continue to follow and assist with discharge planning/needs. DCP- Discharge Planning Updated by [email or web address]: Fang Holly on 10/07/19 10:[address] Ren with APS called and states he will see patient today, update given as well as phone number for patient's daughter and grand son. He asked to be called when discharged. Ren with APS - [phone] DCP- Discharge Planning Updated by [email or web address]: Fang Avni on 10/07/19 9:[address] Patient's daughter, Nessa Henry, called me to give me a list of the skilled facilities she has chosen for her mother. She states she does not want a assisted living. She states the plan is for her mother to go to a SNF for rehab and discharge to daughter's home in [place] after rehab. [facility] and [facility] are all assisted living facilities. [facility] is a SNF. I have called [facility] in [place] at [address] Phone - [phone] and the dental financial coordinator is in a meeting and will return my call. CM will continue to follow and assist with discharge planning/needs. [facility] P- [phone] F - [phone] DCP- Discharge Planning Updated by [email or web address]: Fang Holly on 10/06/19 10:[address] I spoke with patient's grandson, Raudel, today and he states that his grandmother is in agreement to go to a skilled facility in [place] where her daughter lives. Raudel told me I would need to contact her daughter, Nessa, to find out which facility to send the referral to. I called Nessa at [phone] and informed her I would need the name of the facility to send a referral to and left my call back number. I informed Raudel that I did not get ahold of her and I left a message. He states he has also texted her to call me. CM will continue to follow and assist with discharge planning/needs. DCP- Discharge Planning Updated by [email or web address]: Fang Holly on 10/03/19 2:[address] Patient Name: NYASIA HENRY Admission Status: Accout number: [id number] Admission Date: 10-03-2019 : 1930 Admission Diagnosis: Attending: CALRA WONG Current LOS: 1 Anticipated DC Date: Planned Disposition: Assisted Facility Primary Insurance: [facility] Discharge Planning Comments: CM met with patient to complete initial dc planning assessment. CM educated patient on the CM role and verbal consent given by patient to complete assessment. Patient lives at home alone, she states she has a "complex care nurse practitioner come in and out" and is unable to remember her name. She states that she does not work for a company. I spoke with patient's grandson (Raudel Henry) twice today and he states that at discharge they are planning on her going to [place] to be closer to her daughter. He states she is not safe to go home. He states that he will be able to take her to [place]. He also states that he will get a list of skilled facilities to send a referral there if she needs a skilled facility. I told him that she will be here at least over the weekend and to call me on Sunday or I will get with him on which skilled facility he would like me to send a referral to. CM will continue to follow and will assist as needed with dc plans/needs. Pl Sql Programmer: Fang Holly DCPIA - Discharge Planning Initial Assessment Updated by [email or web address]: Fang Holly on 10/03/19 3:49 pm * Is the patient Alert and Oriented? Yes * How many steps to enter\\exit or inside your home? 0/0 * PCP Dr. Andrade * Pharmacy [facility] * Preadmission Environment Home Alone * ADLs Partial Dependent * Partial ADLs (Assistance needed) Ambulation * Equipment Cane Oxygen Walker Wheelchair * List name and contact numbers for known caregivers / representatives who currently or will assist patient after discharge: Raudelsimón Henry - deon - Wilbur - [phone] Nessa [facility] - Bubba - [phone] * Verbal permission to speak to the caregivers and representatives has been obtained from the patient. Yes * Community resources currently utilized Private Duty Care * Additional services required to return to the preadmission environment? Yes * Can the patient safely return to the preadmission environment? No * Has this patient been hospitalized within the prior 30 days at any hospital? No Coverage Notice Reviewer: [id number] - Fang Holly Notice Issued Date-Time: 10/07/2019 10:00 Notice Type: Patient Choice Letter Notice Delivered To: Family Member Relationship to Patient: Daughter Electrical Design Engineer Name: Nessa Henry Delivery Method: PHONE - Phone Renetta Days: Prior Verbal Notification: Recipient Understood Notice: Yes Recipient Signature: Med Rec Note Co-signed by Attending: Coverage Notice Comment: Spoke with daughter, Nessa, on the phone and she gave me a KELLI for SNF. She does not want assisted living 1)[facility] 2)[facility] 3)[facility] 4) [facility]. Last DP export: 10/07/19 10:02 Patient Name: NYASIA HENRY Page 68759 at 1350 All edits/amendments must be made on the electronic document DICTATION DATE: 10/07/191348 WIDE LOAD ESCORT: BEATRIZ 10/07/191348 RPT#: [id number] DC DATE: STATUS: ADM IN [facility] [address] [place] [address] END OF REPORT
--- NOTE | 2019-10-07 14:52 | NUR ---
OT NOTE: PT COMPLETED BUE AROM AXS. PT C/O OF L SHOULDER PAIN. NURSING AWARE. PT COMPLETED BED MOB WITH MOD A. PT COMPLETED SIT TO STAND WITH MIN A. PT COMPLETED UB HYGIENE WITH MIN/MOD A. THANK YOU,NEHEMIAS CHIN
[2019-10-07 16:43] VITALS: BP 126/73
--- NOTE | 2019-10-07 20:00 | NUR ---
ASSESSMENT PER FLOWSHEET. O2 ON AT 2L/M SR UP X2 CALL LIGHT WITHIN REACH. PT IN CONTACT ISOLATION.
--- NOTE | 2019-10-07 21:00 | NUR ---
MEDS GIVEN PER MAR. INC URINE LINENS CHANGED.
[2019-10-07 21:03] VITALS: BP 130/70
--- NOTE | 2019-10-08 | NUR ---
EYES CLOSED RESPIRATIONS WITH EASE AND UNLABORED.
[2019-10-08 01:21] VITALS: BP 124/63
--- NOTE | 2019-10-08 02:30 | NUR ---
INC URINE LINENS CHANGED.
--- NOTE | 2019-10-08 04:06 | NUR ---
EYES CLOSED RESPIRATIONS WITH EASE AND UNLABORED.
[2019-10-08 05:06] VITALS: BP 130/79
[2019-10-08 06:02] LABS: ANION GAP 10.2 mmol/L (8-16); CALCIUM 9.8 mg/dL (8.5-10.1); CARBON DIOXIDE 28.7 mmol/L (21.0-32.0); CREATININE - SERUM 1.2 mg/dL (0.6-1.3); MAGNESIUM - SERUM 1.7 mg/dL (1.8-2.4); PHOSPHOROUS 2.7 mg/dL (2.5-4.9); POTASSIUM - SERUM 3.9 mmol/L (3.5-5.1)
[2019-10-08 07:26] LABS: BASOPHILS 0.1 % (0-2); EOSINOPHILS 2.2 % (0-7); HEMOGLOBIN 9.6 g/dL (12-16); IMMATURE GRANULOCYTES 0.3 % (0-5); LYMPHOCYTES 17.8 % (15-50); MCH 23.6 pg (26.0-34.0); MCHC 28.2 g/dL (31.0-37.0); MCV 83.5 fL (80.0-100.0); MEAN PLATELET VOLUME 9.8 fL (7.4-10.4); MONOCYTES 7.7 % (2-11); NEUTROPHILS 71.9 % (40-80); PLATELET COUNT 313 10x3/uL (130-400); RBC 4.07 10x6/uL (4.00-5.40); WBC 7.7 10x3/uL (4.8-10.8)
--- NOTE | 2019-10-08 08:25 | NUR ---
RESTING IN BED, CONT ISOLATION, O2 PER NC, AWAITING MIDLINE PLACEMENT
[2019-10-08 13:41] VITALS: BP 123/73; BP 127/78
--- NOTE | 2019-10-08 14:36 | NUR ---
OT NOTE: PT ABLE TO FEED SELF WITH SET UP; GROOMING WITH MIN ASSIST; FUNCTIONAL TRANSFERS WITH MIN ASSIST AND USE OF WALKER; TOILETING WITH MIN/MOD ASSIST; MAX ASSIST TO CAROL SOCKS. REJI NGUYEN, OTR/L
--- NOTE | 2019-10-08 16:49 | NUR ---
OT NOTE: PT COMPLETED SIT TO STAND WITH MIN/MOD A. PT OCMPLETED COMPLETED BED MOB TASK WITH MIN/MOD A. PT COMPLETED TRANSFER WITH R/W REQUIRED CGA.PT COMPLETED FACE WASH WITH SET UP. THANK YOU,NEHEMIAS CIHN
--- NOTE | 2019-10-08 19:25 | NUR ---
NO SIGN OF BED BUGS IN PT ROOM TODAY, CONT TO MONITOR, UP IN CHAIR WITH PT TODAY, JOYCE WELL
[2019-10-08 19:30] VITALS: BP 119/84
--- NOTE | 2019-10-08 20:00 | NUR ---
ASSESSMENT PER FLOWSHEET. O2 ON 2L/MPER NC. PT IN CONTACT ISOLATION. IV PATENT RT WRIST OF NS AT 50CC'S/HR.
--- NOTE | 2019-10-08 21:15 | NUR ---
MEDS PER MAR. INC URINE COMPLETE LINENS CHANGED.
--- NOTE | 2019-10-09 | NUR ---
EYES CLOSED RESPIRATIONS WITH EASE AND UNLABORED.
[2019-10-09 00:30] VITALS: BP 121/76
--- NOTE | 2019-10-09 03:54 | NUR ---
RESING QUIETLY DENIES NEEDS.
[2019-10-09 04:53] LABS: BASOPHILS 0.1 % (0-2); EOSINOPHILS 1.9 % (0-7); HEMATOCRIT 34.4 % (36.0-48.0); HEMOGLOBIN 9.6 g/dL (12-16); IMMATURE GRANULOCYTES 0.2 % (0-5); LYMPHOCYTES 18.3 % (15-50); MCH 23.8 pg (26.0-34.0); MCHC 27.9 g/dL (31.0-37.0); MCV 85.1 fL (80.0-100.0); MEAN PLATELET VOLUME 10.2 fL (7.4-10.4); MONOCYTES 7.7 % (2-11); NEUTROPHILS 71.8 % (40-80); PLATELET COUNT 362 10x3/uL (130-400); RBC 4.04 10x6/uL (4.00-5.40); RDW 18.2 % (11.5-14.5); WBC 8.8 10x3/uL (4.8-10.8)
[2019-10-09 05:00] VITALS: BP 119/70
[2019-10-09 05:21] LABS: ALBUMIN 2.8 g/dL (3.4-5.0); ANION GAP 8.3 mmol/L (8-16); BILIRUBIN - TOTAL 0.4 mg/dL (0.2-1.3); CARBON DIOXIDE 29.9 mmol/L (21.0-32.0); CREATININE - SERUM 1.2 mg/dL (0.6-1.3); MAGNESIUM - SERUM 1.8 mg/dL (1.8-2.4); POTASSIUM - SERUM 4.2 mmol/L (3.5-5.1); PROTEIN - SERUM 6.4 g/dL (6.4-8.2)
[2019-10-09 09:21] VITALS: BP 145/87
--- NOTE | 2019-10-09 10:03 | NUR ---
PT IN ROOM.PT IS WITHOUT DISTRESS.CALL LIGHT IN REACH
--- NOTE | 2019-10-09 12:00 | NUR ---
SPOKE TO PT GRANDSON IN REGARDS TO PT GOING TO [place], PT STATES SHE IS READY TO BE DC ADVISED PT CAREPLAN IS TO GET HER THERE AND CASE MGMNT IS WORKING ON THAT. NO S/SX OF DISTRESS NO NEEDS VOICED, CONTINUE WITH PLAN OF CARE
--- NOTE | 2019-10-09 12:03 | MORECARE ---
CASE MANAGEMENT DISCHARGE SUMMARY PATIENT: NYASIA HENRY UNIT: [id number] ADM DATE: 10/03/19 AGE: 88 : 30 SEX: F ROOM/BED: D.2227 AUTHOR: ANTHONY,DOC PHYSICIAN: REFERRING PHYSICIAN: CLARA WONG MD DATE OF SERVICE: 10/09/19 Discharge Plan Patient Name: NYASIA HENRY Facility: [facility]:[place] : 1930 Planned Disposition: Longterm Facility Anticipated Discharge Date: Discharge Date: Expected LOS: Initial Reviewer: [email or web address] Initial Review Date: 10/03/2019 Generated: 10/09/19 1:02 pm Comments DCP- Discharge Planning Updated by [email or web address]: Fang Holly on 10/09/19 11:[address] Updated clinical/PT notes faxed to [facility], awaiting auth from insurance. I have informed her grand son, Raudel, that we are awaiting insurance approval. CM will continue to follow and assist with discharge planning/needs. DCP- Discharge Planning Updated by [id number]: Fang Holly on 10/07/19 12:[address] I spoke with Khang at [facility] and he is reviewing patient's clinicals. He states he will probably have a liason come and meet with the patient. Khang states he will keep me updated. She will need insurance authorization prior to admission to a skilled facility. CM will continue to follow and assist with discharge planning/needs. DCP- Discharge Planning Updated by [id number]: Fang Holly on 10/07/19 10:[address] Ren with [facility]PS called and states he will see patient today, update given as well as phone number for patient's daughter and grand son. He asked to be called when discharged. Ren with [facility]PS - [phone] DCP- Discharge Planning Updated by [email or web address]: Fang Holly on 10/07/19 9:[address] Patient's daughter, Nessa Henry, called me to give me a list of the skilled facilities she has chosen for her mother. She states she does not want a assisted living. She states the plan is for her mother to go to a SNF for rehab and discharge to daughter's home in [place] after rehab. [facility], [facility] and [facility] are all assisted living facilities. [facility] is a SNF. I have called [facility] in [place] at [address] Phone - [phone] and the digital traffic coordinator is in a meeting and will return my call. CM will continue to follow and assist with discharge planning/needs. [facility] P- [phone] F - [phone] DCP- Discharge Planning Updated by [email or web address]: Fang Holly on 10/06/19 10:[address] I spoke with patient's grandson, Raudel, today and he states that his grandmother is in agreement to go to a skilled facility in [place] where her daughter lives. Raudel told me I would need to contact her daughter, Nessa, to find out which facility to send the referral to. I called Nessa at [phone] and informed her I would need the name of the facility to send a referral to and left my call back number. I informed Raudel that I did not get ahold of her and I left a message. He states he has also texted her to call me. CM will continue to follow and assist with discharge planning/needs. DCP- Discharge Planning Updated by [id number]: Fang Holly on 10/03/19 2:[address] Patient Name: NYASIA HENRY Admission Status: ER Accout number: [id number] Admission Date: 10-03-2019 : 1930 Admission Diagnosis: Attending: CLARA WONG Current LOS: 1 Anticipated DC Date: Planned Disposition: Longterm Facility [facility] Discharge Planning Comments: CM met with patient to complete initial dc planning assessment. CM educated patient on the CM role and verbal consent given by patient to complete assessment. Patient lives at home alone, she states she has a "zoo caretaker come in and out" and is unable to remember her name. She states that she does not work for a company. I spoke with patient's grandson (Raudel Henry) twice today and he states that at discharge they are planning on her going to [place] to be closer to her daughter. He states she is not safe to go home. He states that he will be able to take her to [place]. He also states that he will get a list of skilled facilities to send a referral there if she needs a skilled facility. I told him that she will be here at least over the weekend and to call me on Sunday or I will get with him on which skilled facility he would like me to send a referral to. CM will continue to follow and will assist as needed with dc plans/needs. Block Cleaner: Fang Holly DCPIA - Discharge Planning Initial Assessment Updated by [id number]: Fang Holly on 10/03/19 3:49 pm * Is the patient Alert and Oriented? Yes * How many steps to enter\\exit or inside your home? 0/0 * PCP Dr. Andrade * Pharmacy [place] * Preadmission Environment Home Alone * ADLs Partial Dependent * Partial ADLs (Assistance needed) Ambulation * Equipment Cane Oxygen Walker Wheelchair * List name and contact numbers for known caregivers / representatives who currently or will assist patient after discharge: Raudel Henry deon [place] - [phone] [facility] [place] - [phone] * Verbal permission to speak to the caregivers and representatives has been obtained from the patient. Yes * Community resources currently utilized Private Duty Care * Additional services required to return to the preadmission environment? Yes * Can the patient safely return to the preadmission environment? No * Has this patient been hospitalized within the prior 30 days at any hospital? No Coverage Notice Reviewer: [id number] - Fang Holly Notice Issued Date-Time: 10/07/2019 10:00 Notice Type: Patient Choice Letter Notice Delivered To: Family Member Relationship to Patient: Daughter Church Musician Name: Nessa Henry Delivery Method: PHONE - Phone Renetta Days: Prior Verbal Notification: Recipient Understood Notice: Yes Recipient Signature: Med Rec Note Co-signed by Attending: Coverage Notice Comment: Spoke with daughter, Nessa, on the phone and she gave me a KELLI for SNF. She does not want assisted living 1)[facility] 2)[facility] 3)[facility] 4) [facility]. Last DP export: 10/07/19 12:50 Patient Name: NYASIA HENRY Page [id number] at 1203 All edits/amendments must be made on the electronic document DICTATION DATE: 10/09/191201 PRESTRESSED CONCRETE LABORER: BEATRIZ 10/09/191201 RPT#: [id number] CT DATE: STATUS: ADM IN [facility] [address] [place] [address] END OF REPORT
[2019-10-09 12:54] VITALS: BP 152/76
--- NOTE | 2019-10-09 14:54 | NUR ---
OT NOTE: PT WITH SOME NOTED CONFUSION TODAY. NOT ALERT ON PREVIOUS DAYS. MAX ASSIST FOR SUPINE TO SIT; ABLE TO SIT UP ON EOB WITH GOOD SITTING BALANCE. MOD ASSIST TO THOROUGHLY BRUSH HAIR; MOD ASSIST WITH DONNING GOWN; MAX ASSIST WITH PERINEAL CARE/HYGIENE. MAX ASSIST WITH DONNING SOCKS. SIT TO STAND WITH MIN ASSIST; ABLE TO TRANSFER TO CHAIR WITH USE OF WALKER AND MIN ASSIST WITH EXT TIME REQUIRED. TOLERATED SITTING UP IN CHAIR APPROX 3 HRS. RECOMMEND IP REHAB TO IMPROVE STRENGTH, ENDURANCE, AND ADL INDEP. REJI NGUYEN, OTR/L
[2019-10-09 17:28] VITALS: BP 149/107
--- NOTE | 2019-10-09 18:28 | NUR ---
RESTING IN BED. NO C/O PAIN. NO S/S OF ACUTE DISTRESS NOTED. DENIES ANY NEEDS AT THIS TIME. CALL LIGHT IN REACH. WILL CONTINUE TO MONITOR.
[2019-10-09 19:30] VITALS: BP 133/89
--- NOTE | 2019-10-10 00:23 | NUR ---
ASSESSED AT THE BEGINNING OF THE SHIFT. PT IS ALERT AND ORIENTED, ABLE TO VERBALIZE NEEDS. SHE REMAINS IN ISOLATION FOR BEDBUGS. O2 IS AT 3.5 PER NASAL CANULAR AND HER IV SITE IS CLEAN AND DRY. SHE WAS NAPPING AT THIS ASSESSMENT BUT HAS BEEN AWAKE LATER. NO COMPLAINTS VOICED.
[2019-10-10 00:30] VITALS: BP 139/80
--- NOTE | 2019-10-10 05:14 | NUR ---
DURING THE NIGHT MS HENRY RECEIVED A COMPLETE BED BATH WITH CLEAN LINENS IN PLACE. SHE HAS A PURE WICK TO HELP WITH INCONTINENCE OF URINE. THERE WAS A LITTLE URINE ON HER PAD SO WHEN WE REPLACED IT AFTER THE BATH IT WAS ADJUSTED.
[2019-10-10 05:19] VITALS: BP 141/84
--- NOTE | 2019-10-10 07:16 | NUR ---
PT IS RESTING,WITHOUT SIGNS OF DISTRESS.
[2019-10-10 08:50] VITALS: BP 148/86
--- NOTE | 2019-10-10 09:40 | NUR ---
PT IV BECAME INFILTRATED LAST NIGHT, UNABLE TO GET IV ACCESS, CALLED VASCUAR ACCESS NURSE WELL, LAB UNABLE TO STICK PT WELL
--- NOTE | 2019-10-10 10:02 | MORECARE ---
CASE MANAGEMENT DISCHARGE SUMMARY PATIENT: NYASIA HENRY UNIT: [id number] ADM DATE: 10/03/19 AGE: 88 : 30 SEX: F ROOM/BED: D.2227 AUTHOR: ANTHONY,DOC PHYSICIAN: REFERRING PHYSICIAN: CLARA WONG MD DATE OF SERVICE: 10/10/19 Discharge Plan Patient Name: NYASIA HENRY Facility: [facility]:[place] : 1930 Planned Disposition: Custodial Facility Anticipated Discharge Date: Discharge Date: Expected LOS: Initial Reviewer: [email or web address] Initial Review Date: 10/03/2019 Generated: 10/10/19 11:01 am Comments DCP- Discharge Planning Updated by [email or web address]: Fang Holly on 10/10/19 8:[address] CM met with patient to discuss discharging to rehab. She states "I hope it's as good as the rehab that I was in here in [place]. She is in agreement to discharge when accepted. Awaiting authorization from insurance for SNF. CM will continue to follow and assist with discharge planning/needs. DCP- Discharge Planning Updated by [email or web address]: Fang Holly on 10/09/19 11:[address] Updated clinical/PT notes faxed to [facility], awaiting auth from insurance. I have informed her grand son, Raudel, that we are awaiting insurance approval. CM will continue to follow and assist with discharge planning/needs. DCP- Discharge Planning Updated by [email or web address]: Fang Holly on 10/07/19 12:[address] I spoke with Khang at [facility] and he is reviewing patient's clinicals. He states he will probably have a liason come and meet with the patient. Khang states he will keep me updated. She will need insurance authorization prior to admission to a skilled facility. CM will continue to follow and assist with discharge planning/needs. DCP- Discharge Planning Updated by [email or web address]: Fang Holly on 10/07/19 10:[address] Ren with [facility]PS called and states he will see patient today, update given as well as phone number for patient's daughter and grand son. He asked to be called when discharged. Ren with [facility]PS - [phone] DCP- Discharge Planning Updated by [email or web address]: Fang Holly on 10/07/19 9:[address] Patient's daughter, Nessa Henry, called me to give me a list of the skilled facilities she has chosen for her mother. She states she does not want a assisted living. She states the plan is for her mother to go to a SNF for rehab and discharge to daughter's home in [place] after rehab. [facility] are all assisted living facilities. [facility] is a SNF[facility] I have called [facility] in [place] at [address] Phone - [phone] and the claims coordinator is in a meeting and will return my call. CM will continue to follow and assist with discharge planning/needs. [facility] P- [phone] F - [phone] DCP- Discharge Planning Updated by [id number]: Fang Holly on 10/06/19 10:[address] I spoke with patient's grandson, Raudel, today and he states that his grandmother is in agreement to go to a skilled facility in [place] where her daughter lives. Raudel told me I would need to contact her daughter, Nessa, to find out which facility to send the referral to. I called Nessa at [phone] and informed her I would need the name of the facility to send a referral to and left my call back number. I informed Raudel that I did not get ahold of her and I left a message. He states he has also texted her to call me. CM will continue to follow and assist with discharge planning/needs. DCP- Discharge Planning Updated by [email or web address]: Fang Holly on 10/03/19 2:[address] Patient Name: NYASIA HENRY Admission Status: ER Accout number: [id number] Admission Date: 10-03-2019 : 1930 Admission Diagnosis: Attending: CLARA WONG Current LOS: 1 Anticipated DC Date: Planned Disposition: Custodial Facility [facility] Discharge Planning Comments: CM met with patient to complete initial dc planning assessment. CM educated patient on the CM role and verbal consent given by patient to complete assessment. Patient lives at home alone, she states she has a "resident care supervisor come in and out" and is unable to remember her name. She states that she does not work for a company. I spoke with patient's grandson (Raudel Henry) twice today and he states that at discharge they are planning on her going to [place] to be closer to her daughter. He states she is not safe to go home. He states that he will be able to take her to [place]. He also states that he will get a list of skilled facilities to send a referral there if she needs a skilled facility. I told him that she will be here at least over the weekend and to call me on Sunday or I will get with him on which skilled facility he would like me to send a referral to. CM will continue to follow and will assist as needed with dc plans/needs. Labor Relations Analyst: Fang Holly DCPIA - Discharge Planning Initial Assessment Updated by [id number]: Fang Holly on 10/03/19 3:49 pm * Is the patient Alert and Oriented? Yes * How many steps to enter\\exit or inside your home? 0/0 * PCP Dr. Andrade * Pharmacy [place] * Preadmission Environment Home Alone * ADLs Partial Dependent * Partial ADLs (Assistance needed) Ambulation * Equipment Cane Oxygen Walker Wheelchair * List name and contact numbers for known caregivers / representatives who currently or will assist patient after discharge: Raudel Henry - deon - [place] - [phone] Nessa - [facility] - [place] - [phone] * Verbal permission to speak to the caregivers and representatives has been obtained from the patient. Yes * Community resources currently utilized Private Duty Care * Additional services required to return to the preadmission environment? Yes * Can the patient safely return to the preadmission environment? No * Has this patient been hospitalized within the prior 30 days at any hospital? No Coverage Notice Reviewer: [email or web address] - Fang Holly Notice Issued Date-Time: 10/07/2019 10:00 Notice Type: Patient Choice Letter Notice Delivered To: Family Member Relationship to Patient: Daughter Gps Field Data Collector Name: Nessa Henry Delivery Method: PHONE - Phone Renetta Days: Prior Verbal Notification: Recipient Understood Notice: Yes Recipient Signature: Med Rec Note Co-signed by Attending: Coverage Notice Comment: Spoke with daughterNessa, on the phone and she gave me a KELLI for SNF. She does not want assisted living 1)[place] 2)[facility] 3)[facility] 4) [facility]. Reviewer: [id number] - Fang Holly Notice Issued Date-Time: 10/10/2019 9:49 Notice Type: IM Discharge Notice Notice Delivered To: Patient Relationship to Patient: Self Gps Field Data Collector Name: Delivery Method: HAND - Hand Delivered Renetta Days: Prior Verbal Notification: Recipient Understood Notice: Yes Recipient Signature: Yes Med Rec Note Co-signed by Attending: Coverage Notice Comment: IMM explained, signed, given, copy placed in MR Last DP export: 10/09/19 11:03 Patient Name: NYASIA HENRY Page [id number] at 1002 All edits/amendments must be made on the electronic document DICTATION DATE: 10/10/19 1001 BOOK CLEANER: BEATRIZ 10/10/19 1001 RPT#: [id number] DC DATE: STATUS: ADM IN [facility] [address] [place] [address] END OF REPORT
--- NOTE | 2019-10-10 12:19 | NUR ---
PT IV RESITED TO LEFT UPPER ARM BY VASCULAR ACCESS NURSE, PT IS SITTING IN BED TALKING ON PHONE NO S/SX OF DISTRESS PT OFF ISOLATION, CONTINUE WITH PLAN OF CARE
[2019-10-10 12:28] VITALS: BP 133/82
--- NOTE | 2019-10-10 12:36 | MORECARE ---
CASE MANAGEMENT DISCHARGE SUMMARY PATIENT: NYASIA HENRY UNIT: [id number] ADM DATE: 10/03/19 AGE: 88 : 30 SEX: F ROOM/BED: D.2227 AUTHOR: ANTHONY,DOC PHYSICIAN: REFERRING PHYSICIAN: CLARA WONG MD DATE OF SERVICE: 10/10/19 Discharge Plan Patient Name: NYASIA HENRY Facility: [facility]:[place] : 1930 Planned Disposition: Senior Care Facility Anticipated Discharge Date: Discharge Date: Expected LOS: Initial Reviewer: [email or web address] Initial Review Date: 10/03/2019 Generated: 10/10/19 1:36 pm Comments DCP- Discharge Planning Updated by [email or web address]: Fang Holly on 10/10/19 11:[address] Room air oxygen saturation is 89% at rest. Placed back on 2 liters NC. If she is still requiring oxygen on discharge, she will need an ambulance transfer to [facility] in [place]. CM will continue to follow and assist with discharge planning/needs. Continue to await insurance authorization for SNF. CM will continue to follow and assist with discharge planning/needs. DCP- Discharge Planning Updated by [email or web address]: Fang Holly on 10/10/19 8:[address] CM met with patient to discuss discharging to rehab. She states "I hope it's as good as the rehab that I was in here in [place]. She is in agreement to discharge when accepted. Awaiting authorization from insurance for SNF. CM will continue to follow and assist with discharge planning/needs. DCP- Discharge Planning Updated by [email or web address]: Fang Holly on 10/09/19 11:[address] Updated clinical/PT notes faxed to [facility], awaiting auth from insurance. I have informed her grand son, Raudel, that we are awaiting insurance approval. CM will continue to follow and assist with discharge planning/needs. DCP- Discharge Planning Updated by [email or web address]: Fang Holly on 10/07/19 12:[address] I spoke with Khang at [facility] and he is reviewing patient's clinicals. He states he will probably have a liason come and meet with the patient. Khang states he will keep me updated. She will need insurance authorization prior to admission to a skilled facility. CM will continue to follow and assist with discharge planning/needs. DCP- Discharge Planning Updated by [email or web address]: Fang Aliciaradha on 10/07/19 10:[address] Ren with [facility] called and states he will see patient today, update given as well as phone number for patient's daughter and grand son. He asked to be called when discharged. Ren with [facility]PS - [phone] DCP- Discharge Planning Updated by [email or web address]: Fang Holly on 10/07/19 9:[address] Patient's daughter, Nessa Henry, called me to give me a list of the skilled facilities she has chosen for her mother. She states she does not want a assisted living. She states the plan is for her mother to go to a SNF for rehab and discharge to daughter's home in [place] after rehab. [facility] is a [facility]. I have called [facility] in [place] at [address] Phone - [phone] and the children's program coordinator is in a meeting and will return my call. CM will continue to follow and assist with discharge planning/needs. [facility] P- [phone] F - [phone] DCP- Discharge Planning Updated by [email or web address]: Fang Holly on 10/06/19 10:[address] I spoke with patient's grandson, Raudel, today and he states that his grandmother is in agreement to go to a skilled facility in [place] where her daughter lives. Raudel told me I would need to contact her daughter, Nessa, to find out which facility to send the referral to. I called Nessa at [phone] and informed her I would need the name of the facility to send a referral to and left my call back number. I informed Raudel that I did not get ahold of her and I left a message. He states he has also texted her to call me. CM will continue to follow and assist with discharge planning/needs. DCP- Discharge Planning Updated by [email or web address]: Fang Aliciaradha on 10/03/19 2:[address] Patient Name: NYASIA HENRY Admission Status: ER Accout number: [id number] Admission Date: 10-03-2019 : 1930 Admission Diagnosis: Attending: CLARA WONG Current LOS: 1 Anticipated DC Date: Planned Disposition: Senior Care Facility [facility] Discharge Planning Comments: CM met with patient to complete initial dc planning assessment. CM educated patient on the CM role and verbal consent given by patient to complete assessment. Patient lives at home alone, she states she has a "regular senior care provider come in and out" and is unable to remember her name. She states that she does not work for a company. I spoke with patient's grandson (Raudel Henry) twice today and he states that at discharge they are planning on her going to [place] to be closer to her daughter. He states she is not safe to go home. He states that he will be able to take her to [place]. He also states that he will get a list of skilled facilities to send a referral there if she needs a skilled facility. I told him that she will be here at least over the weekend and to call me on Sunday or I will get with him on which skilled facility he would like me to send a referral to. CM will continue to follow and will assist as needed with dc plans/needs. Soft Top Installer: Fang Avni DCPIA - Discharge Planning Initial Assessment Updated by [id number]: Fang Holly on 10/03/19 3:49 pm * Is the patient Alert and Oriented? Yes * How many steps to enter\\exit or inside your home? 0/0 * PCP Dr. Andrade * Pharmacy [facility] * Preadmission Environment Home Alone * ADLs Partial Dependent * Partial ADLs (Assistance needed) Ambulation * Equipment Cane Oxygen Walker Wheelchair * List name and contact numbers for known caregivers / representatives who currently or will assist patient after discharge: Raudel Henry - deon [facility] - [phone] Nessa [facility] - [place] - [phone] * Verbal permission to speak to the caregivers and representatives has been obtained from the patient. Yes * Community resources currently utilized Private Duty Care * Additional services required to return to the preadmission environment? Yes * Can the patient safely return to the preadmission environment? No * Has this patient been hospitalized within the prior 30 days at any hospital? No Coverage Notice Reviewer: [id number] Deloris Holly Notice Issued Date-Time: 10/07/2019 10:00 Notice Type: Patient Choice Letter Notice Delivered To: Family Member Relationship to Patient: Daughter Wader Boot Top Assembler Name: Nessa Henry Delivery Method: PHONE - Phone Renetta Days: Prior Verbal Notification: Recipient Understood Notice: Yes Recipient Signature: Med Rec Note Co-signed by Attending: Coverage Notice Comment: Spoke with daughter, Nessa, on the phone and she gave me a KELLI for SNF. She does not want assisted living 1)[facility] 2)[facility] 3)[facility] 4) [facility]. Reviewer: [id number] Deloris Holly Notice Issued Date-Time: 10/10/2019 9:49 Notice Type: IM Discharge Notice Notice Delivered To: Patient Relationship to Patient: Self Wader Boot Top Assembler Name: Delivery Method: HAND - Hand Delivered Renetta Days: Prior Verbal Notification: Recipient Understood Notice: Yes Recipient Signature: Yes Med Rec Note Co-signed by Attending: Coverage Notice Comment: IMM explained, signed, given, copy placed in MR Last DP export: 10/10/19 9:02 Patient Name: NYASIA HENRY Page [id number] at 1236 All edits/amendments must be made on the electronic document DICTATION DATE: 10/10/19 1236 HI LIFT OPERATOR: BEATRIZ 10/10/19 1236 RPT#: [id number] DC DATE: STATUS: ADM IN [facility] [address] [place] [address] END OF REPORT
--- NOTE | 2019-10-10 13:17 | NUR ---
NUTRITION F/U PT REMAINS IN ISOLATION. ~25% INTAKE RECENT MEALS. WILL ADD ENSURE TO DIET ORDER. RD FOLLOWING
[2019-10-10 15:31] LABS: BASOPHILS 0.2 % (0-2); EOSINOPHILS 1.7 % (0-7); HEMOGLOBIN 10.3 g/dL (12-16); IMMATURE GRANULOCYTES 0.2 % (0-5); LYMPHOCYTES 12.2 % (15-50); MCHC 27.8 g/dL (31.0-37.0); MCV 86.2 fL (80.0-100.0); MEAN PLATELET VOLUME 9.7 fL (7.4-10.4); MONOCYTES 7.5 % (2-11); NEUTROPHILS 78.2 % (40-80); PLATELET COUNT 310 10x3/uL (130-400); RBC 4.29 10x6/uL (4.00-5.40); WBC 8.7 10x3/uL (4.8-10.8)
[2019-10-10] MEDS ORDERED: MACRODANTIN50 MG PO (15:37)
[2019-10-10] MEDS ORDERED: FLORAJEN3 CAPS460 MG PO (15:37)
[2019-10-10] MEDS ORDERED: PROTONIX40 MG PO (15:37)
[2019-10-10 15:47] LABS: ALBUMIN 2.8 g/dL (3.4-5.0); ANION GAP 7.1 mmol/L (8-16); BILIRUBIN - TOTAL 0.43 mg/dL (0.2-1.3); CALCIUM 10.2 mg/dL (8.5-10.1); CREATININE - SERUM 1.1 mg/dL (0.6-1.3); POTASSIUM - SERUM 4.1 mmol/L (3.5-5.1); PROTEIN - SERUM 6.2 g/dL (6.4-8.2)
--- NOTE | 2019-10-10 15:59 | MORECARE ---
CASE MANAGEMENT DISCHARGE SUMMARY PATIENT: NYASIA HENRY UNIT: [id number] ADM DATE: 10/03/19 AGE: 88 : 30 SEX: F ROOM/BED: D.2227 AUTHOR: ANTHONY,DOC PHYSICIAN: REFERRING PHYSICIAN: CLARA WONG MD DATE OF SERVICE: 10/10/19 Discharge Plan Patient Name: NYASIA HENRY Facility: [facility]:[place] : 1930 Planned Disposition: Prison Facility Anticipated Discharge Date: Discharge Date: Expected LOS: Initial Reviewer: [email or web address] Initial Review Date: 10/03/2019 Generated: 10/10/19 4:58 pm Comments DCP- Discharge Planning Updated by [email or web address]: Fang Holly on 10/10/19 2:[address] Sammi called with authorization for SNF at [facility]. Kacey, primary nurse, has called Khang at [phone] and given report. She will need ambulance transfer because she is on oxygen. Clinical faxed to [phone]. Dorcas Lacy informed and discharge orders received. She is discharging to a skilled (Medicare) bed. DCP- Discharge Planning Updated by [id number]: Fang Holly on 10/10/19 11:[address] Room air oxygen saturation is 89% at rest. Placed back on 2 liters NC. If she is still requiring oxygen on discharge, she will need an ambulance transfer to [facility] in [place]. CM will continue to follow and assist with discharge planning/needs. Continue to await insurance authorization for SNF. CM will continue to follow and assist with discharge planning/needs. DCP- Discharge Planning Updated by [email or web address]: Fang Holly on 10/10/19 8:[address] CM met with patient to discuss discharging to rehab. She states "I hope it's as good as the rehab that I was in here in [place]. She is in agreement to discharge when accepted. Awaiting authorization from insurance for SNF. CM will continue to follow and assist with discharge planning/needs. DCP- Discharge Planning Updated by [id number]: Fang Holly on 10/09/19 11:[address] Updated clinical/PT notes faxed to [facility], awaiting auth from insurance. I have informed her grand son, Raudel, that we are awaiting insurance approval. CM will continue to follow and assist with discharge planning/needs. DCP- Discharge Planning Updated by [email or web address]: Fang Avni on 10/07/19 12:[address] I spoke with Khang at [facility] and he is reviewing patient's clinicals. He states he will probably have a liason come and meet with the patient. Khang states he will keep me updated. She will need insurance authorization prior to admission to a skilled facility. CM will continue to follow and assist with discharge planning/needs. DCP- Discharge Planning Updated by [email or web address]: Fang Avni on 10/07/19 10:[address] Ren with [facility] called and states he will see patient today, update given as well as phone number for patient's daughter and grand son. He asked to be called when discharged. Ren with [facility]PS - [phone] DCP- Discharge Planning Updated by [email or web address]: Fang Avni on 10/07/19 9:[address] Patient's daughter, Nessa Henry, called me to give me a list of the skilled facilities she has chosen for her mother. She states she does not want a assisted living. She states the plan is for her mother to go to a SNF for rehab and discharge to daughter's home in [place] after rehab. [facility], [facility] and [facility] are all assisted living facilities. [facility] is a SNF. I have called [facility] in [place] at [address] Phone - [phone] and the cost coordinator is in a meeting and will return my call. CM will continue to follow and assist with discharge planning/needs. [facility] P- [phone] F - [phone] DCP- Discharge Planning Updated by [email or web address]: Fang Avni on 10/06/19 10:[address] I spoke with patient's grandson, Raudel, today and he states that his grandmother is in agreement to go to a skilled facility in [place] where her daughter lives. Raudel told me I would need to contact her daughter, Nessa, to find out which facility to send the referral to. I called Nessa at [phone] and informed her I would need the name of the facility to send a referral to and left my call back number. I informed Raudel that I did not get ahold of her and I left a message. He states he has also texted her to call me. CM will continue to follow and assist with discharge planning/needs. DCP- Discharge Planning Updated by [email or web address]: Fang Avni on 10/03/19 2:[address] Patient Name: NYASIA HENRY Admission Status: ER Accout number: [id number] Admission Date: 10-03-2019 : 1930 Admission Diagnosis: Attending: CLARA WONG Current LOS: 1 Anticipated DC Date: Planned Disposition: Prison Facility Primary Insurance: [employer] Discharge Planning Comments: CM met with patient to complete initial dc planning assessment. CM educated patient on the CM role and verbal consent given by patient to complete assessment. Patient lives at home alone, she states she has a "direct care supervisor come in and out" and is unable to remember her name. She states that she does not work for a company. I spoke with patient's grandson (Raudel Henry) twice today and he states that at discharge they are planning on her going to [place] to be closer to her daughter. He states she is not safe to go home. He states that he will be able to take her to [place]. He also states that he will get a list of skilled facilities to send a referral there if she needs a skilled facility. I told him that she will be here at least over the weekend and to call me on Sunday or I will get with him on which skilled facility he would like me to send a referral to. CM will continue to follow and will assist as needed with dc plans/needs. Direct Marketing Intern: Fang Holly DCPIA - Discharge Planning Initial Assessment Updated by [id number]: Fang Avni on 10/03/19 3:49 pm * Is the patient Alert and Oriented? Yes * How many steps to enter\\exit or inside your home? 0/0 * PCP Dr. Andrade * Pharmacy [facility] * Preadmission Environment Home Alone * ADLs Partial Dependent * Partial ADLs (Assistance needed) Ambulation * Equipment Cane Oxygen Walker Wheelchair * List name and contact numbers for known caregivers / representatives who currently or will assist patient after discharge: Raudel Henry - deon - [place] - [phone] Nessa Puentes DTR - [place] - [phone] * Verbal permission to speak to the caregivers and representatives has been obtained from the patient. Yes * Community resources currently utilized Private Duty Care * Additional services required to return to the preadmission environment? Yes * Can the patient safely return to the preadmission environment? No * Has this patient been hospitalized within the prior 30 days at any hospital? No Coverage Notice Reviewer: [id number] Deloris Holly Notice Issued Date-Time: 10/07/2019 10:00 Notice Type: Patient Choice Letter Notice Delivered To: Family Member Relationship to Patient: Daughter Field Service Consultant Name: Nessa Henry Delivery Method: PHONE - Phone Renetta Days: Prior Verbal Notification: Recipient Understood Notice: Yes Recipient Signature: Med Rec Note Co-signed by Attending: Coverage Notice Comment: Spoke with daughter, Nessa, on the phone and she gave me a KELLI for SNF. She does not want assisted living 1)[facility] 2)[facility] 3)[facility] 4) [facility]. Reviewer: [id number] Deloris Holly Notice Issued Date-Time: 10/10/2019 9:49 Notice Type: IM Discharge Notice Notice Delivered To: Patient Relationship to Patient: Self Field Service Consultant Name: Delivery Method: HAND - Hand Delivered Renetta Days: Prior Verbal Notification: Recipient Understood Notice: Yes Recipient Signature: Yes Med Rec Note Co-signed by Attending: Coverage Notice Comment: IMM explained, signed, given, copy placed in MR Last DP export: 10/10/19 11:36 Patient Name: NYASIA HENRY Page [id number] at 1559 All edits/amendments must be made on the electronic document DICTATION DATE: 10/10/191557 TEXTILE WORKER: BEATRIZ 10/10/191557 RPT#: [id number] DC DATE: STATUS: ADM IN [facility] [address] [place] [address] END OF REPORT
--- NOTE | 2019-10-10 16:07 | NUR ---
REPORT CALLED TO FRANCHESCA KEYES LPN AT [facility] . ALL ORDERS FAXED TO PHONE NUMBER [phone]. NO FURTHER QUESTIONS FROM RECEIVING FACILITY.
--- NOTE | 2019-10-10 16:15 | MORECARE ---
CASE MANAGEMENT DISCHARGE SUMMARY PATIENT: NYASIA HENRY UNIT: [id number] ADM DATE: 10/03/19 AGE: 88 : 30 SEX: F ROOM/BED: D.2227 AUTHOR: ANTHONY,DOC PHYSICIAN: REFERRING PHYSICIAN: CLARA WONG MD DATE OF SERVICE: 10/10/19 Discharge Plan Patient Name: NYASIA HENRY Facility: [facility]:[place] : 1930 Planned Disposition: [facility] Facility Anticipated Discharge Date: Discharge Date: Expected LOS: Initial Reviewer: [email or web address] Initial Review Date: 10/03/2019 Generated: 10/10/19 5:14 pm Comments DCP- Discharge Planning Updated by [email or web address]: Fang Holly on 10/10/19 3:[address] CLINICAL FAXED TO [phone] PER REQUEST TO THE [facility]. I HAVE CALLED AND INFORMED PATIENT'S SON THAT SHE WILL DISCHARGE THIS EVENING TO THE [facility] IN [facility]. I ALSO CALLED AND LEFT A MESSAGE ON HER DAUGHTER'S PHONE (NESSA) THAT SHE WILL BE DISCHARGING TONIGHT VIA AMBULANCE TO THE [facility] AND THAT IF SHE HAS NOT SIGNED PAPERS, SHE WILL NEED TO SIGN ADMISSION PAPERS. SHE IS DISCHARGING TO A SKILLED BED. DCP- Discharge Planning Updated by [email or web address]: Fang Holly on 10/10/19 2:[address] Sammi called with authorization for SNF at [facility]. Kacey, primary nurse, has called Khang at [phone] and given report. She will need ambulance transfer because she is on oxygen. Clinical faxed to [phone]. Dorcas Lacy informed and discharge orders received. She is discharging to a skilled (Medicare) bed. DCP- Discharge Planning Updated by [email or web address]: Fang Holly on 10/10/19 11:[address] Room air oxygen saturation is 89% at rest. Placed back on 2 liters NC. If she is still requiring oxygen on discharge, she will need an ambulance transfer to [facility] in [place]. CM will continue to follow and assist with discharge planning/needs. Continue to await insurance authorization for SNF. CM will continue to follow and assist with discharge planning/needs. DCP- Discharge Planning Updated by [email or web address]: Fang Aliciaradha on 10/10/19 8:[address] CM met with patient to discuss discharging to rehab. She states "I hope it's as good as the rehab that I was in here in [place]. She is in agreement to discharge when accepted. Awaiting authorization from insurance for SNF. CM will continue to follow and assist with discharge planning/needs. DCP- Discharge Planning Updated by [id number]: Fang Avni on 10/09/19 11:[address] Updated clinical/PT notes faxed to [facility], awaiting auth from insurance. I have informed her grand son, Raudel, that we are awaiting insurance approval. CM will continue to follow and assist with discharge planning/needs. DCP- Discharge Planning Updated by [email or web address]: Fang Avni on 10/07/19 12:[address] I spoke with Khang at [facility] and he is reviewing patient's clinicals. He states he will probably have a liason come and meet with the patient. Khang states he will keep me updated. She will need insurance authorization prior to admission to a skilled facility. CM will continue to follow and assist with discharge planning/needs. DCP- Discharge Planning Updated by [email or web address]: Fang Avni on 10/07/19 10:[address] Ren with [facility] called and states he will see patient today, update given as well as phone number for patient's daughter and grand son. He asked to be called when discharged. Ren with [facility] - [phone] DCP- Discharge Planning Updated by [email or web address]: Fang Avni on 10/07/19 9:[address] Patient's daughter, Nessa Henry, called me to give me a list of the skilled facilities she has chosen for her mother. She states she does not want a assisted living. She states the plan is for her mother to go to a SNF for rehab and discharge to daughter's home in [place] after rehab. [facility], [facility] and [facility] are all assisted living facilities. [facility] is a SNF. I have called [facility] in [place] at [address] Phone - [phone] and the submarine element coordinator is in a meeting and will return my call. CM will continue to follow and assist with discharge planning/needs. [facility] P- [phone] F - [phone] DCP- Discharge Planning Updated by [email or web address]: Fang Holly on 10/06/19 10:[address] I spoke with patient's grandson, Raudel, today and he states that his grandmother is in agreement to go to a skilled facility in [place] where her daughter lives. Raudel told me I would need to contact her daughter, Nessa, to find out which facility to send the referral to. I called Nessa at [phone] and informed her I would need the name of the facility to send a referral to and left my call back number. I informed Raudel that I did not get ahold of her and I left a message. He states he has also texted her to call me. CM will continue to follow and assist with discharge planning/needs. DCP- Discharge Planning Updated by [email or web address]: Fang Holly on 10/03/19 2:[address] Patient Name: NYASIA HENRY Admission Status: ER Accout number: [id number] Admission Date: 10-03-2019 : 1930 Admission Diagnosis: Attending: CLARA WONG Current LOS: 1 Anticipated DC Date: Planned Disposition: [facility] Facility Primary Insurance: [facility] Discharge Planning Comments: CM met with patient to complete initial dc planning assessment. CM educated patient on the CM role and verbal consent given by patient to complete assessment. Patient lives at home alone, she states she has a "district manager primary care sales come in and out" and is unable to remember her name. She states that she does not work for a company. I spoke with patient's grandson (Raudel Henry) twice today and he states that at discharge they are planning on her going to [place] to be closer to her daughter. He states she is not safe to go home. He states that he will be able to take her to [place]. He also states that he will get a list of skilled facilities to send a referral there if she needs a skilled facility. I told him that she will be here at least over the weekend and to call me on Sunday or I will get with him on which skilled facility he would like me to send a referral to. CM will continue to follow and will assist as needed with dc plans/needs. Retail Support Manager: Fang Holly DCPIA - Discharge Planning Initial Assessment Updated by [email or web address]: Fang Holly on 10/03/19 3:49 pm * Is the patient Alert and Oriented? Yes * How many steps to enter\\exit or inside your home? 0/0 * PCP Dr. Andrade * Pharmacy [place] * Preadmission Environment Home Alone * ADLs Partial Dependent * Partial ADLs (Assistance needed) Ambulation * Equipment Cane Oxygen Walker Wheelchair * List name and contact numbers for known caregivers / representatives who currently or will assist patient after discharge: Raudel Henry - andi - [place] - [phone] Nessa DONNASerenity - Bubba - [phone] * Verbal permission to speak to the caregivers and representatives has been obtained from the patient. Yes * Community resources currently utilized Private Duty Care * Additional services required to return to the preadmission environment? Yes * Can the patient safely return to the preadmission environment? No * Has this patient been hospitalized within the prior 30 days at any hospital? No Coverage Notice Reviewer: [email or web address] Deloris Holly Notice Issued Date-Time: 10/07/2019 10:00 Notice Type: Patient Choice Letter Notice Delivered To: Family Member Relationship to Patient: Daughter Pull Socket Assembler Name: Nessa Henry Delivery Method: PHONE - Phone Renetta Days: Prior Verbal Notification: Recipient Understood Notice: Yes Recipient Signature: Med Rec Note Co-signed by Attending: Coverage Notice Comment: Spoke with daughter, Nessa, on the phone and she gave me a KELLI for SNF. She does not want assisted living 1)[facility] 2)[facility] 3)[facility] 4) [facility]. Reviewer: [id number] Deloris Holly Notice Issued Date-Time: 10/10/2019 9:49 Notice Type: IM Discharge Notice Notice Delivered To: Patient Relationship to Patient: Self Pull Socket Assembler Name: Delivery Method: HAND - Hand Delivered Renetta Days: Prior Verbal Notification: Recipient Understood Notice: Yes Recipient Signature: Yes Med Rec Note Co-signed by Attending: Coverage Notice Comment: IMM explained, signed, given, copy placed in MR Last DP export: 10/10/19 2:59 Patient Name: NYASIA HENRY Page [id number] at 1615 All edits/amendments must be made on the electronic document DICTATION DATE: 10/10/191613 SPINE SURGEON: BEATRIZ 10/10/191613 RPT#: [id number] DC DATE: STATUS: ADM IN [facility] [address] [place] [address] END OF REPORT
[2019-10-10 16:58] VITALS: BP 105/78
--- NOTE | 2019-10-10 18:53 | NUR ---
[facility]. PER [facility], INSURANCE WILL NOT COVER TRIP TO [facility] DUE TO NOT QUALIFYING BECAUSE OF OXYGEN REQUIREMENTS. ESTHER GAFFNEY ARERIK NOTIFIED THAT PT WILL NOT DISCHARGING TONIGHT. PT GRANDSON TO COME IN AM TO SPEAK WITH CASE MANAGEMENT.
--- NOTE | 2019-10-10 19:15 | NUR ---
OT NOTE: PT COMPLETED SELF FEEDING TASK WITH SET UP. PT COMPLETED UB HYGIENE TASKS WITH SET UP TO MIN A. PT COMPLETED SIDE ROLLING WITH MIN A AND USE OF SIDE RAILS. THANK YOU,NEHEMIAS CHIN
[2019-10-10 19:30] VITALS: BP 143/81
[2019-10-11 00:30] VITALS: BP 138/76
[2019-10-11 04:57] VITALS: BP 140/80
[2019-10-11 06:37] LABS: BASOPHILS 0.2 % (0-2); EOSINOPHILS 2.1 % (0-7); HEMATOCRIT 34.9 % (36.0-48.0); IMMATURE GRANULOCYTES 0.4 % (0-5); LYMPHOCYTES 19.5 % (15-50); MCH 24.4 pg (26.0-34.0); MCHC 28.7 g/dL (31.0-37.0); MCV 85.1 fL (80.0-100.0); MEAN PLATELET VOLUME 10.2 fL (7.4-10.4); MONOCYTES 9.2 % (2-11); NEUTROPHILS 68.6 % (40-80); PLATELET COUNT 263 10x3/uL (130-400); RDW 19.7 % (11.5-14.5); WBC 8.6 10x3/uL (4.8-10.8)
[2019-10-11 08:35] LABS: ALBUMIN 2.7 g/dL (3.4-5.0); ANION GAP 10.1 mmol/L (8-16); BILIRUBIN - TOTAL 0.44 mg/dL (0.2-1.3); CALCIUM 10.1 mg/dL (8.5-10.1); CARBON DIOXIDE 29.3 mmol/L (21.0-32.0); CREATININE - SERUM 1.1 mg/dL (0.6-1.3); POTASSIUM - SERUM 4.4 mmol/L (3.5-5.1); PROTEIN - SERUM 6.1 g/dL (6.4-8.2)
[2019-10-11 09:12] VITALS: BP 144/91
[2019-10-11 09:54] LABS: CKMB 0.8 U/L (0.0-3.6); CREATINE KINASE 14 UL (21-215)
[2019-10-11 09:55] LABS: TROPONIN-I 0.071 ng/mL (0.000-0.060)
--- NOTE | 2019-10-11 11:18 | NUR ---
PT SON HERE TO SPEAK TO CASE MANAGEMENT, HAD MS. SEARS CALL MELANIE IN ER AND WAS ADVISED WILL BE UP KISHAN, RELAYED MESSAGE TO SON, CONTINUE WITH PLAN OF CARE
--- NOTE | 2019-10-11 12:10 | MORECARE ---
CASE MANAGEMENT DISCHARGE SUMMARY PATIENT: NYASIA HENRY UNIT: [id number] ADM DATE: 10/03/19 AGE: 88 : 30 SEX: F ROOM/BED: D.2227 AUTHOR: ANTHONY,DOC PHYSICIAN: REFERRING PHYSICIAN: CLARA WONG MD DATE OF SERVICE: 10/11/19 Discharge Plan Patient Name: NYASIA HENRY Facility: [facility]:[place] : 1930 Planned Disposition: Detention Facility Anticipated Discharge Date: Discharge Date: Expected LOS: Initial Reviewer: [email or web address] Initial Review Date: 10/03/2019 Generated: 10/11/19 1:10 pm Comments DCP- Discharge Planning Updated by [email or web address]: Mica Torres on 10/11/19 11:[address] Medicare does not reimburse for non-emergent transportation past the closest facility. Medicare will only cover the base rate and approximately 10 miles, or closest local facility. Patient's grandson, Alejandro Henry is here to transport patient to [place], where he will meet another grandson, Warren Henry who will transport to [facility] in [place]. Patient has been off O2 and her current RA Sat is 98%. CM contacted Sammi with [facility] and made her aware that the patient will be arriving without O2. CHRISTINE notified Miguelina BESS of same. Patient's nurse is to call [facility] with report. Patient is discharging to a skilled facility. DCP- Discharge Planning Updated by [email or web address]: Fang Holly on 10/10/19 3:[address] CLINICAL FAXED TO [phone] [facility]. I HAVE CALLED AND INFORMED PATIENT'S SON THAT SHE WILL DISCHARGE THIS EVENING TO THE [facility] IN [facility]. I ALSO CALLED AND LEFT A MESSAGE ON HER DAUGHTER'S PHONE (NESSA) THAT SHE WILL BE DISCHARGING TONIGHT VIA AMBULANCE TO THE [facility] AND THAT IF SHE HAS NOT SIGNED PAPERS, SHE WILL NEED TO SIGN ADMISSION PAPERS. SHE IS DISCHARGING TO A SKILLED BED. DCP- Discharge Planning Updated by [email or web address]: Fang Holly on 10/10/19 2:52 pm FARZANA Chapa called with authorization for SNF at [facility]. Kacey, primary nurse, has called [facility] at [phone] and given report. She will need ambulance transfer because she is on oxygen. Clinical faxed to [phone]. Dorcas Lacy informed and discharge orders received. She is discharging to a skilled (Medicare) bed. DCP- Discharge Planning Updated by [email or web address]: Fang Holly on 10/10/19 11:[address] Room air oxygen saturation is 89% at rest. Placed back on 2 liters NC. If she is still requiring oxygen on discharge, she will need an ambulance transfer to [facility] in [place]. CM will continue to follow and assist with discharge planning/needs. Continue to await insurance authorization for SNF. CM will continue to follow and assist with discharge planning/needs. DCP- Discharge Planning Updated by [id number]: Fang Holly on 10/10/19 8:[address] CM met with patient to discuss discharging to rehab. She states "I hope it's as good as the rehab that I was in here in [place]. She is in agreement to discharge when accepted. Awaiting authorization from insurance for SNF. CM will continue to follow and assist with discharge planning/needs. DCP- Discharge Planning Updated by [email or web address]: Fang Holly on 10/09/19 11:[address] Updated clinical/PT notes faxed to [facility], awaiting auth from insurance. I have informed her grand son, Raudel, that we are awaiting insurance approval. CM will continue to follow and assist with discharge planning/needs. DCP- Discharge Planning Updated by [email or web address]: Fang Holly on 10/07/19 12:[address] I spoke with Khang at [facility] and he is reviewing patient's clinicals. He states he will probably have a liason come and meet with the patient. Khang states he will keep me updated. She will need insurance authorization prior to admission to a skilled facility. CM will continue to follow and assist with discharge planning/needs. DCP- Discharge Planning Updated by [email or web address]: Fang Holly on 10/07/19 10:[address] Ren with [facility] called and states he will see patient today, update given as well as phone number for patient's daughter and grand son. He asked to be called when discharged. Ren with [facility] - [phone] DCP- Discharge Planning Updated by [id number]: Fang Holly on 10/07/19 9:[address] Patient's daughter, Nessa Henry, called me to give me a list of the skilled facilities she has chosen for her mother. She states she does not want a assisted living. She states the plan is for her mother to go to a SNF for rehab and discharge to daughter's home in [place] after rehab. [facility] and [facility] are all assisted living facilities. [facility] is a SNF. I have called [facility] in [place] at [address] Phone - [phone] and the neighborhood coordinator is in a meeting and will return my call. CM will continue to follow and assist with discharge planning/needs. [facility] P- [phone] F - [phone] DCP- Discharge Planning Updated by [id number]: Fang Holly on 10/06/19 10:[address] I spoke with patient's grandson, Raudel, today and he states that his grandmother is in agreement to go to a skilled facility in [place] where her daughter lives. Raudel told me I would need to contact her daughter, Nessa, to find out which facility to send the referral to. I called Nessa at [phone] and informed her I would need the name of the facility to send a referral to and left my call back number. I informed Raudel that I did not get ahold of her and I left a message. He states he has also texted her to call me. CM will continue to follow and assist with discharge planning/needs. DCP- Discharge Planning Updated by [email or web address]: Fang Holly on 10/03/19 2:[address] Patient Name: NYASIA HENRY Admission Status: ER Accout number: [id number] Admission Date: 10-03-2019 : 1930 Admission Diagnosis: Attending: CLARA WONG Current LOS: 1 Anticipated DC Date: Planned Disposition: Detention Facility Primary Insurance: [employer] Discharge Planning Comments: CM met with patient to complete initial dc planning assessment. CM educated patient on the CM role and verbal consent given by patient to complete assessment. Patient lives at home alone, she states she has a "transitional care liaison come in and out" and is unable to remember her name. She states that she does not work for a company. I spoke with patient's grandson (Raudel Henry) twice today and he states that at discharge they are planning on her going to [place] to be closer to her daughter. He states she is not safe to go home. He states that he will be able to take her to [place]. He also states that he will get a list of skilled facilities to send a referral there if she needs a skilled facility. I told him that she will be here at least over the weekend and to call me on Sunday or I will get with him on which skilled facility he would like me to send a referral to. CM will continue to follow and will assist as needed with dc plans/needs. Central Office Installer: Fang Holly DCPIA - Discharge Planning Initial Assessment Updated by [email or web address]: Fang Holly on 10/03/19 3:49 pm * Is the patient Alert and Oriented? Yes * How many steps to enter\\exit or inside your home? 0/0 * PCP Dr. Andrade * Pharmacy [place] * Preadmission Environment Home Alone * ADLs Partial Dependent * Partial ADLs (Assistance needed) Ambulation * Equipment Cane Oxygen Walker Wheelchair * List name and contact numbers for known caregivers / representatives who currently or will assist patient after discharge: Raudel Henry - deon - Wil[place] - [phone] Nessa - Serenity - Bubba - [phone] * Verbal permission to speak to the caregivers and representatives has been obtained from the patient. Yes * Community resources currently utilized Private Duty Care * Additional services required to return to the preadmission environment? Yes * Can the patient safely return to the preadmission environment? No * Has this patient been hospitalized within the prior 30 days at any hospital? No Coverage Notice Reviewer: [id number] - Fang Holly Notice Issued Date-Time: 10/07/2019 10:00 Notice Type: Patient Choice Letter Notice Delivered To: Family Member Relationship to Patient: Daughter Methods Study Analyst Name: Nessa Henry Delivery Method: PHONE - Phone Renetta Days: Prior Verbal Notification: Recipient Understood Notice: Yes Recipient Signature: Med Rec Note Co-signed by Attending: Coverage Notice Comment: Spoke with daughter, Nessa, on the phone and she gave me a KELLI for SNF. She does not want assisted living 1)[facility] 2)[facility] 3)[facility] 4) [facility]. Reviewer: [id number] - Fang Holly Notice Issued Date-Time: 10/10/2019 9:49 Notice Type: IM Discharge Notice Notice Delivered To: Patient Relationship to Patient: Self Methods Study Analyst Name: Delivery Method: HAND - Hand Delivered Renetta Days: Prior Verbal Notification: Recipient Understood Notice: Yes Recipient Signature: Yes Med Rec Note Co-signed by Attending: Coverage Notice Comment: IMM explained, signed, given, copy placed in MR Last DP export: 10/10/19 3:15 Patient Name: NYASIA HENRY Page [id number] at 1210 All edits/amendments must be made on the electronic document DICTATION DATE: 10/11/19 1210 DIRECTOR OF BROADCAST: BEATRIZ 10/11/19 1210 RPT#: [id number] DC DATE: STATUS: ADM IN [facility] [address] [place] [address] END OF REPORT
[2019-10-11 13:04] VITALS: BP 156/86
--- NOTE | 2019-10-12 13:56 | MORECARE ---
CASE MANAGEMENT DISCHARGE SUMMARY PATIENT: NYASIA HENRY UNIT: [id number] ADM DATE: 10/03/19 AGE: 88 : 30 SEX: F ROOM/BED: D.2227 AUTHOR: ANTHONY,DOC PHYSICIAN: REFERRING PHYSICIAN: CLARA WONG MD DATE OF SERVICE: 10/12/19 Discharge Plan Patient Name: NYASIA HENRY Facility: [facility]:[address] : 1930 Planned Disposition: Chcf Facility Anticipated Discharge Date: Discharge Date: 10/11/2019 Expected LOS: Initial Reviewer: [email or web address] Initial Review Date: 10/03/2019 Generated: 10/12/19 2:55 pm Comments DCP- Discharge Planning Updated by [email or web address]: Mica Torres on 10/11/19 11:[address] Medicare does not reimburse for non-emergent transportation past the closest facility. Medicare will only cover the base rate and approximately 10 miles, or closest local facility. Patient's grandson, Alejandro Henry is here to transport patient to [place], where he will meet another grandson, Warren Henry who will transport to [facility] in [place]. Patient has been off O2 and her current RA Sat is 98%. CM contacted Sammi with [facility] and made her aware that the patient will be arriving without O2. CM notified Miguelina BESS of same. Patient's nurse is to call Summer with report. Patient is discharging to a skilled facility. DCP- Discharge Planning Updated by [email or web address]: Fang Holly on 10/10/19 3:[address] CLINICAL FAXED TO [phone] PER REQUEST TO [facility]. I HAVE CALLED AND INFORMED PATIENT'S SON THAT SHE WILL DISCHARGE THIS EVENING TO THE [facility] IN [facility]. I ALSO CALLED AND LEFT A MESSAGE ON HER DAUGHTER'S PHONE (NESSA) THAT SHE WILL BE DISCHARGING TONIGHT VIA AMBULANCE TO THE [facility] AND THAT IF SHE HAS NOT SIGNED PAPERS, SHE WILL NEED TO SIGN ADMISSION PAPERS. SHE IS DISCHARGING TO A SKILLED BED. DCP- Discharge Planning Updated by [email or web address]: Fang Holly on 10/10/19 2:[address] Sammi called with authorization for SNF at [facility]. Kacey, primary nurse, has called Khang at [phone] and given report. She will need ambulance transfer because she is on oxygen. Clinical faxed to [phone]. Dorcas Lacy informed and discharge orders received. She is discharging to a skilled (Medicare) bed. DCP- Discharge Planning Updated by [email or web address]: Fang Holly on 10/10/19 11:[address] Room air oxygen saturation is 89% at rest. Placed back on 2 liters NC. If she is still requiring oxygen on discharge, she will need an ambulance transfer to [facility] in [place]. CM will continue to follow and assist with discharge planning/needs. Continue to await insurance authorization for SNF. CM will continue to follow and assist with discharge planning/needs. DCP- Discharge Planning Updated by [email or web address]: Fang Holly on 10/10/19 8:[address] CM met with patient to discuss discharging to rehab. She states "I hope it's as good as the rehab that I was in here in [place]. She is in agreement to discharge when accepted. Awaiting authorization from insurance for SNF. CM will continue to follow and assist with discharge planning/needs. DCP- Discharge Planning Updated by [email or web address]: Fang Holly on 10/09/19 11:[address] Updated clinical/PT notes faxed to [facility], awaiting auth from insurance. I have informed her grand son, Raudel, that we are awaiting insurance approval. CM will continue to follow and assist with discharge planning/needs. DCP- Discharge Planning Updated by [email or web address]: Fang Holly on 10/07/19 12:[address] I spoke with Khang at [facility] and he is reviewing patient's clinicals. He states he will probably have a liason come and meet with the patient. Khang states he will keep me updated. She will need insurance authorization prior to admission to a skilled facility. CM will continue to follow and assist with discharge planning/needs. DCP- Discharge Planning Updated by [id number]: Fang Holly on 10/07/19 10:[address] Ren with [facility] called and states he will see patient today, update given as well as phone number for patient's daughter and grand son. He asked to be called when discharged. Ren with [facility] - [phone] DCP- Discharge Planning Updated by [email or web address]: Fang Holly on 10/07/19 9:[address] Patient's daughter, Nessa Henry, called me to give me a list of the skilled facilities she has chosen for her mother. She states she does not want a assisted living. She states the plan is for her mother to go to a SNF for rehab and discharge to daughter's home in [place] after rehab. [facility]. [facility] a [facility]. I have called [facility] in [place] at [address] Phone - [phone] and the telehealth coordinator is in a meeting and will return my call. CM will continue to follow and assist with discharge planning/needs. [facility] P- [phone] F - [phone] DCP- Discharge Planning Updated by [email or web address]: Fang Holly on 10/06/19 10:[address] I spoke with patient's grandson, Raudel, today and he states that his grandmother is in agreement to go to a skilled facility in [place] where her daughter lives. Raudel told me I would need to contact her daughter, Nessa, to find out which facility to send the referral to. I called Nessa at [phone] and informed her I would need the name of the facility to send a referral to and left my call back number. I informed aRudel that I did not get ahold of her and I left a message. He states he has also texted her to call me. CM will continue to follow and assist with discharge planning/needs. DCP- Discharge Planning Updated by [email or web address]: Fang Holly on 10/03/19 2:[address] Patient Name: NYASIA HENRY Admission Status: ER Accout number: [id number] Admission Date: 10-03-2019 : 1930 Admission Diagnosis: Attending: CLARA WONG Current LOS: 1 Anticipated DC Date: Planned Disposition: [facility] Facility Primary [facility] Discharge Planning Comments: CM met with patient to complete initial dc planning assessment. CM educated patient on the CM role and verbal consent given by patient to complete assessment. Patient lives at home alone, she states she has a "career and guidance counselor come in and out" and is unable to remember her name. She states that she does not work for a company. I spoke with patient's grandson (Raudel Henry) twice today and he states that at discharge they are planning on her going to [place] to be closer to her daughter. He states she is not safe to go home. He states that he will be able to take her to [place]. He also states that he will get a list of skilled facilities to send a referral there if she needs a skilled facility. I told him that she will be here at least over the weekend and to call me on Sunday or I will get with him on which skilled facility he would like me to send a referral to. CM will continue to follow and will assist as needed with dc plans/needs. Insulation Helper: Fang Holly DCPIA - Discharge Planning Initial Assessment Updated by [email or web address]: Fang Holly on 10/03/19 3:49 pm * Is the patient Alert and Oriented? Yes * How many steps to enter\\exit or inside your home? 0/0 * PCP Dr. Andrade * [facility] * Preadmission Environment Home Alone * ADLs Partial Dependent * Partial ADLs (Assistance needed) Ambulation * Equipment Cane Oxygen Walker Wheelchair * List name and contact numbers for known caregivers / representatives who currently or will assist patient after discharge: Raudel Henry - deon - [place] - [phone] Nessa - Serenity - Bubba - [phone] * Verbal permission to speak to the caregivers and representatives has been obtained from the patient. Yes * Community resources currently utilized Private Duty Care * Additional services required to return to the preadmission environment? Yes * Can the patient safely return to the preadmission environment? No * Has this patient been hospitalized within the prior 30 days at any hospital? No Coverage Notice Reviewer: [id number] - Fang Holly Notice Issued Date-Time: 10/07/2019 10:00 Notice Type: Patient Choice Letter Notice Delivered To: Family Member Relationship to Patient: Daughter Speedboat Operator Name: Nessa Henry Delivery Method: PHONE - Phone Renetta Days: Prior Verbal Notification: Recipient Understood Notice: Yes Recipient Signature: Med Rec Note Co-signed by Attending: Coverage Notice Comment: Spoke with daughter, Nessa, on the phone and she gave me a KELLI for SNF. She does not want assisted living 1)[facility] 2)[facility] 3)[facility] 4) [facility]. Reviewer: [id number] - Fang Holly Notice Issued Date-Time: 10/10/2019 9:49 Notice Type: IM Discharge Notice Notice Delivered To: Patient Relationship to Patient: Self Speedboat Operator Name: Delivery Method: HAND - Hand Delivered Renetta Days: Prior Verbal Notification: Recipient Understood Notice: Yes Recipient Signature: Yes Med Rec Note Co-signed by Attending: Coverage Notice Comment: IMM explained, signed, given, copy placed in MR Last DP export: 10/11/19 11:10 Patient Name: NYASIA HENRY Page [id number] at 1356 All edits/amendments must be made on the electronic document DICTATION DATE: 10/12/19 1359 MANAGER OF DISASTER RECOVERY: BEATRIZ 10/12/19 1350 RPT#: [id number] DC DATE:10/11/19 STATUS: DIS IN [facility] [address] [place] [address] END OF REPORT
== END 2019-10-11 13:28 | DRG 558 ==
LOC: D.ER 00:41 → D.MS 01:57
PROVIDERS: Emergency Medicine; Family Medicine; ADMIT Internal Medicine Nephrology; ATTEND Internal Medicine Nephrology
DX: M62.50 Muscle wasting and atrophy, not elsewhere classified, unspecified site (principal); N39.0 Urinary tract infection, site not specified; N17.9 Acute kidney failure, unspecified; E87.0 Hyperosmolality and hypernatremia; D62 Acute posthemorrhagic anemia; I48.91 Unspecified atrial fibrillation; E86.0 Dehydration; D50.9 Iron deficiency anemia, unspecified; R79.89 Other specified abnormal findings of blood chemistry; F41.8 Other specified anxiety disorders; B96.20 Unspecified Escherichia coli [E. coli] as the cause of diseases classified elsewhere